=== PATIENT | female | born 1945 | race Caucasian/White ===

== ENCOUNTER → 2016-07-24 | Outpatient (REF) | payer MEDICARE, MEDICAID ==
[~2016-07-24] MED LIST: /ALEN70TA OR; /RISE35TA; /WARF5TA; AMBI10TA; AMBI10TA OR; AMBI5TAB PO; ANTI12.5; ASPI81TA83; ASPI81TA83 OR; ASPI81TA85 PO; ASTEPRO; ATIV0.5T; ATIV0.5T OR; ATIV1TAB10 PO; ATOR40TA PO; CARV6.25 PO; COLA100C2; COLA100C2 OR; CORE6.25; CORE6.25 OR; CORE6.25 PO; COUMADIN; DEPA500T2 OR; DIGO0.12 PO; DOCU10CA PO; FERR325T; HUMIRA; HYDR-3719 PO; KEPP1TAB2 PO; LISI10TA4; MAGN400T5 PO; MAGN500T2 OR; MAGO400T PO; MIDO10TA PO; NITR0.4S; NITR0.4S SL; NITR4TASL SL; OYST500T OR; OYST500T76; PACE200T PO; PERC5TAB6 PO; PERC5TAB8 OR; PLAV75TA38 PO; PRIL20CA; PRIL40CA PO; SOMA350T; SOMA350T OR; SOMA350T PO; SULF500T2 PO; VALS40TA PO; VALT1TAB PO; VALT500T; VALT500T PO; VICO10TA11 PO; VICODIN PO; VICODINES TAB; VITA50003 PO; VITAMIN D50000 UNT OR; ZOCO40TA; ZOCO40TA OR; ZOCO40TA PO; ZOLO100T; ZOLO100T OR; ZOLO100T PO; [UNRECOGNIZED DRUG - CODE]; astelin nasal spray
== END ==
LOC: M LAB REF 16:55
PROVIDERS: ATTEND Family Medicine
DX: I25.10 Atherosclerotic heart disease of native coronary artery without angina pectoris (principal)

== ENCOUNTER → 2016-10-28 | Outpatient (REF) | payer MEDICARE, MEDICAID | LOC: M LAB REF 16:36 | PROVIDERS: ATTEND Family Medicine | DX: M05.79 Rheumatoid arthritis with rheumatoid factor of multiple sites without organ or systems involvement (principal) ==

== ENCOUNTER 2016-11-19 17:05 | Emergency (ER) | payer MEDICARE, MEDICAID ==
[~2016-11-19] VITALS: Ht 172.7 cm; Wt 44.0 kg
[2016-11-19] MEDS ORDERED: CLOP75TA2 (17:24)
[2016-11-19 17:58] LABS: BASO # 0.1 K/mm3 (0.0-0.2); BASO % 1.5 % (0.0-1.0); EOS # 0.2 K/mm3 (0.0-0.50); EOS % 3.7 % (0.0-3.0); LARGE UNSTAINED CELL # 0.2 K/mm3 (0.0-0.4); LARGE UNSTAINED CELL % 4.1 % (0.0-4.0); LYMPH # 1.5 K/mm3 (1.5-4.5); MEAN CORPUSCULAR HEMOGLOBIN 30.9 pg (27.0-33.0); MEAN CORPUSCULAR HGB CONC 31.7 g/dl (32.0-36.5); MEAN CORPUSCULAR VOLUME 97.5 fl (80.0-96.0); MONO # 0.5 K/mm3 (0.0-0.8); MONO % 12.5 % (0.0-5.0); NEUTROPHILS # 1.8 K/mm3 (1.8-7.7); NEUTROPHILS % 43.1 % (36.0-66.0); PLATELET COUNT, AUTOMATED 234 k/mm3 (150-450); RED CELL DISTRIBUTION WIDTH 15.8 % (11.5-14.5); WHITE BLOOD COUNT 4.2 K/mm3 (4.0-10.0)
[2016-11-19] MEDS ORDERED: ONDANSETRON 4MG/2ML VIAL (J2405) IV ONE (18:00)
[2016-11-19] MEDS ORDERED: MORPHINE 2 MG/ML 1ML SYRINGE IV ONE ×3 (18:00→23:45)
[2016-11-19] MEDS ORDERED: SODIUM CHLORIDE 0.9% 1000 ML IV ONE (18:00)
[2016-11-19 18:23] LABS: ANION GAP 5 MEQ/L (8-16); BLOOD UREA NITROGEN 9 MG/DL (7-18); CALCIUM LEVEL 7.8 MG/DL (8.8-10.2); CARBON DIOXIDE LEVEL 28 MEQ/L (21-32); CHLORIDE LEVEL 106 MEQ/L (98-107); CREATININE FOR GFR 0.57 MG/DL (0.55-1.02); FREE T4 1.31 NG/DL (0.76-1.46); GLOMERULAR FILTRATION RATE > 60.0 (>45); GLUCOSE, FASTING 87 MG/DL (80-110); MAGNESIUM LEVEL 1.9 MG/DL (1.8-2.4); SODIUM LEVEL 139 MEQ/L (136-145)
--- NOTE | 2016-11-19 20:50 | ECGEPIP ---
Stationary ECG Study [facility] - ED Test Date: 2016-11-19 Pat Name: CHEIKH RUGGIERO Department: Room: - Gender: F Radiation Control Worker: ct : 1945 Requested By: Airam Krishnamurthy Order Number: [id number] Reading MD: John Brown Measurements Intervals [place] Rate: 62 P: 52 MO: 178 QRS: -61 QRSD: 117 T: 79 QT: 431 QTc: 439 Interpretive Statements SINUS RHYTHM LEFT ANTERIOR FASCICULAR BLOCK SEPTAL MYOCARDIAL INFARCTION, OF INDETERMINATE AGE SIMILAR TO 12/02/15 Electronically Signed On 11-19-2016 20:49:49 EDT by John Brown
[2016-11-20 02:07] VITALS: BP 144/70
[2016-12-07] MEDS ORDERED: COLA100C3 PO (15:27)
[2016-12-07] MEDS ORDERED: ATOR40TA PO (15:27)
== END 2016-11-20 03:07 | disposition home or self-care (01) ==
LOC: EDBD 17:05 → M ED 19:43
DX: I95.0 Idiopathic hypotension (principal); I51.9 Heart disease, unspecified; I25.2 Old myocardial infarction; Z86.73 Personal history of transient ischemic attack (TIA), and cerebral infarction without residual deficits; G89.29 Other chronic pain; M19.90 Unspecified osteoarthritis, unspecified site; Z79.899 Other long term (current) drug therapy; Z79.82 Long term (current) use of aspirin; Z79.02 Long term (current) use of antithrombotics/antiplatelets; Z88.8 Allergy status to other drugs, medicaments and biological substances
CPT/HCPCS: 80048; 82550; 82553; 83735; 84439; 84443; 84484; 85025; 93005; 93041; 94760; 96374; 96375; 96376; 99285; J2405

== ENCOUNTER 2016-12-07 12:39 | Inpatient (IN) | payer MEDICARE, MEDICAID ==
[~2016-12-07] VITALS: Ht 170.2 cm; Wt 46.2 kg
[~2016-12-07 12:39] MED LIST changes: -ATOR40TA PO; +ATOR40TA75 PO; +CLOP75TA2; +PERC5TAB12 PO; -PERC5TAB6 PO; +PLAV1TAB2 PO; -PLAV75TA38 PO; +VITA1CAP40 PO; -VITA50003 PO
[2016-12-07 13:25] LABS: BASO # 0.1 K/mm3 (0.0-0.2); BASO % 2.1 % (0.0-1.0); EOS # 0.1 K/mm3 (0.0-0.50); LARGE UNSTAINED CELL # 0.1 K/mm3 (0.0-0.4); LARGE UNSTAINED CELL % 2.9 % (0.0-4.0); LYMPH # 1.1 K/mm3 (1.5-4.5); LYMPH % 31.2 % (24.0-44.0); MEAN CORPUSCULAR HEMOGLOBIN 30.3 pg (27.0-33.0); MEAN CORPUSCULAR HGB CONC 32.5 g/dl (32.0-36.5); MEAN CORPUSCULAR VOLUME 93.4 fl (80.0-96.0); MONO # 0.3 K/mm3 (0.0-0.8); MONO % 9.2 % (0.0-5.0); NEUTROPHILS # 1.7 K/mm3 (1.8-7.7); NEUTROPHILS % 50.6 % (36.0-66.0); PLATELET COUNT, AUTOMATED 295 k/mm3 (150-450); RED CELL DISTRIBUTION WIDTH 14.3 % (11.5-14.5); WHITE BLOOD COUNT 3.3 K/mm3 (4.0-10.0)
[2016-12-07 13:29] LABS: INR 1.03
[2016-12-07 13:54] LABS: ANION GAP 7 MEQ/L (8-16); BLOOD UREA NITROGEN 7 MG/DL (7-18); CALCIUM LEVEL 8.7 MG/DL (8.8-10.2); CARBON DIOXIDE LEVEL 26 MEQ/L (21-32); CHLORIDE LEVEL 101 MEQ/L (98-107); CREATININE FOR GFR 0.55 MG/DL (0.55-1.02); GLOMERULAR FILTRATION RATE > 60.0 (>45); GLUCOSE, FASTING 105 MG/DL (80-110); MAGNESIUM LEVEL 1.9 MG/DL (1.8-2.4); PHOSPHORUS LEVEL 2.3 MG/DL (2.5-4.9); POTASSIUM SERUM 3.5 MEQ/L (3.5-5.1); SODIUM LEVEL 134 MEQ/L (136-145)
[2016-12-07] MEDS ORDERED: NEUTRA-PHOS 1.25 GM PACKET PO ONE (14:15)
[2016-12-07] MEDS ORDERED: PERCOCET 5MG/325MG TAB PO ONE (14:30)
[2016-12-07] MEDS ORDERED: LORazepam 2 MG/ML VIAL (J2060) As Ordered ONE (14:36)
[2016-12-07] MEDS ORDERED: LORazepam 2 MG/ML VIAL (J2060) IV STA (14:43)
--- NOTE | 2016-12-07 15:00 | REP ---
CT study brain without contrast: History: CVA. Comparison CT study January 18, 2015. CT findings: Digital preliminary lead systems analyst radiograph is unremarkable. The patient is edentulous. Bone window settings demonstrate an intact bony calvarium. No skull fracture is seen. Visualized paranasal sinuses are clear. There is vascular calcification in the distal carotid arteries bilaterally. No intraorbital abnormality is seen. There is moderate diffuse cerebral atrophy. There is old encephalomalacia in the distribution of the left middle cerebral artery consistent with an old infarct. This is unchanged from the January 18, 2015 prior study. No acute infarction is seen. There is no evidence of intracranial hemorrhage. No mass or extra-axial fluid collection is seen. No midline shift is seen. Small vessel atherosclerotic changes are again noted. Findings are unchanged. Impression: Diffuse atrophy, vascular calcification. Old left-sided infarcts, and small vessel changes. No acute intracranial abnormality. Signed by Alejandro Ward MD 12/07/2016 04:14 P
[2016-12-07] MEDS ORDERED: levETIRAcetam INJection 500 MG in D5W MINI-BAG PLUS 100 ML IV ONE (15:15)
[2016-12-07] MEDS ORDERED: ASPIRIN 325 MG TAB PO ONE (15:15)
[2016-12-07] MEDS ORDERED: ATOR40TA75 PO (15:27)
[2016-12-07] MEDS ORDERED: COLA100C5 PO (15:27)
[2016-12-07] MEDS ORDERED: CLOP75TA2 PO (15:27)
[2016-12-07 15:32] LABS: DIGOXIN LEVEL 0.5 NG/ML (0.5-2.0)
[2016-12-07] MEDS ORDERED: SULF50TA PO (15:45)
[2016-12-07] MEDS ORDERED: ACETAMINOPHEN TAB 650MG DOSE (2X325MG) PO PRN (17:30)
[2016-12-07 18:00] VITALS: BP 148/91
[2016-12-07] MEDS ORDERED: NITROGLYCERIN 0.4 MG SUBL TABLET SL PRN (18:30)
--- NOTE | 2016-12-07 18:43 | HPEPDOC ---
General Date of Admission Dec 07, 2016 at 15:49 Primary Care Physician: MIKE MERINO M.D. Other Providers Glove Turner And Former: Dr. Lopez Orthopedics: Dr. Sulaiman rAtis [employer] And Deck Remover: Previously Dr. Lawrence Nieto, currently unknown ENT: Dr. Austin Agee [facility] as of September 27: Nicole Attending Physician: TERRANCE BRADFORD MD Chief Complaint The patient is a 70-year-old female admitted with a reason for visit of Seizure, Transient Ischemic Attack. History of Present Illness PRIMARY CARE PROVIDER: Dr. Mike Merino CHIEF COMPLAINT: possible seizure and "10/10 body pain all over"(as per granddaughter) HISTORY OF PRESENT ILLNESS: History given by both patient's sister and patient's granddaughter. Ms. 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 Granddaughter is certified coding specialist of patient and was taking care of the patient this AM. At ~noontime, patient who is bedbound, mobility impaired, and wheelchair bound, was reportedly arching her neck and back while in her bed resting, unable to answer her granddaughters questions, unable to speak in full sentences and talk normally, and was reported to be confused. Granddaughter stated this is not her baseline. Granddaughter stated that she has never seen her grandmother behaving like this before. Has never seen her grandmother arching her back before or witnessed any seizures prior to today. Patient does not have a hx of seizures either. Today may have been the first time. Granddaughter states that there was no incontinence of bowel/ bladder that occurred at that time and reports no unusual weakness from her grandmother's baseline. She reports that the patient did not have any uncontrollable upper or lower extremity movements either. Nevertheless, she was still rushed to the [facility] ED. By the time the ambulance came, granddaughter thinks that patient's symptoms mainly resolved. A CT scan of head was negative for acute intracranial pathology or hemorrhagic findings. It had shown diffuse atrophy, vascular calcification, old L-sided infarcts, small vessel changes. Multiple EKGs done today were not remarkable different when compared to prior. Troponin I x1 was negative. CBC was only remarkable for WBC of 3.3. INR was 1.03. Chemistry was remarkable for Na of 134, digoxin level of 0.5, Mg of 1.0, and phosphorus of 2.3. CXR showed no active disease, sternotomy, and a pacemaker in place. Later in the afternoon between 3-4 PM, patient was reported to have witnessed seizure-like activity in the ED with uncontrollable shaking, eye rolling movement, tongue drooping. Nurse reports there was some stool incontinence: very bright yellow waterry stool, but unsure if she had any urinary incontinence. Patient usually wears a diaper due to her mobility impairment. Nurse also reported some "tiny R-sided weakness." Patient was then administered levetiracetam. When this resolved, patient was reported to by very "red and hot" according to nurse. Patient then became very restless for ~30 minutes. Was given IV 2 mg ativan. Finally, she had then settled down. She was also placed on oxygen. Initially, was satting 93% on room air. Currently, was satting 97% with oxygen. Patient's sister reports that patient has generalized weakness in her extremities. Now, it seems patient is back to baseline. Sister reports that patient does not c/o fevers, chest pain, SOB, nausea, vomiting, abdominal pain, diarrhea, constipation. Patient always feels cold. Patient also does admit to a sore throat. PAST MEDICAL HISTORY: Paroxysmal Supraventricular Tachycardia Possible Atrial Fibrillation? 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 ALLERGIES: Tizanidine: anaphylaxis rxn Zanaflex: breathing difficulty, tongue swells Prednisone: heart races Lisinopril: dizziness, vertigo, cough SOCIAL HISTORY: Lives at home alone. Has 2 caregivers at home (one is niece and one is daughter in law). In addition, a public health nurse comes. Is mobility impaired, bedbound, and wheelchair bound. Does not smoke or use EtOH. No illicit drug use. Healthcare Proxy: Son Berny Beltre, Sister Mei Saeed, Aunt Nguyen Garcia, Granddaughter Nora Penaloza, Friend Rachael Kapoor FAMILY HISTORY: Noncontributory. CODE STATUS: Has a Healthcare Proxy From that states: "wants CPR". However, unable to ask patient whether she wants to be intubated as well. Therefore, code status to be determined. REVIEW OF SYSTEMS: All ROS is negative except for that which is stated above. PHYSICAL EXAMINATION: Initial ED Vitals at 12:43 T: 99.4 BP: 163/100 RR: 18 P: 73 O2 Saturation: 97% on 2 L NC At 14:08: BP 148/95 At 14:09: Pulse Ox: 95% on 2 L NC General: Quiet, thin and cachectic elderly female with thin hair. Lying comfortably in position in bed in NAD. Doses on and off. Awake at times. Mumbles answers to some questions, but not fully comprehensible. Very low tone in speech. HEENT: Head: normocephalic, atraumatic. Eyes: PERRL, sclera are nonicteric. Nose: No external lesions Throat: no pharyngeal erythema or exudates, moist buccal mucosa. However, there is some oral thrush appreciated. Neck: Supple Respiratory: clear to auscultation bilaterally with no wheezes, rales, or rhonchi. Chest: Symmetric chest rise bilaterally. Cardiovascular: regular rate and rhythm, with no murmurs, rubs or gallops. Abdomen: soft, nondistended, no hepatosplenomegaly appreciated. Bowel sounds present. Generalized tenderness to palpation (reported by patient but not clear as it is difficult to comprehend her) Extremities: Hand size cutter strong in L hand > R hand. Fingers are a bit deformed and contracted as part of RA changes it seems. Unable to fully test muscle strength in upper or lower extremities bilaterally due to patient being unable to follow commands. Did not feel patient was able to understand me much. MSK: No swelling in either lower extremity bilaterally. L leg severely thin and deconditioned as compared to R leg. Both legs contracted and flexed, difficult to extend. Neurological: Unable to follow my commands. Unable to test CN 2-12 bilaterally. Was able to stick out tongue and move it slightly to a side. + Upgoing Babinski signs in both feet bilaterally. Integumentary: skin free from rashes, lesions, abrasions. Vascular: pulses palpable and symmetrical in upper and lower extremities bilaterally. LABORATORY DATA: CBC remarkable for WBC 3.3. [place] %: 9.2, Eos %: 4, Baso%: 2.1, Neut #: 1.7, and Lymph #: 1.1. INR was 1.03. Chemistry remarkable for Na 134. Ca: 8.7 Phosphorus: 2.3 Digoxin Level: 0.5 M.9 Total CK: 37 CK-MB: 1 Troponin I: <0.02 MICROBIOLOGY: None ELECTROCARDIOGRAM: 3 EKGs were done in the ED which showed no acute changes compared to previous EKG. EKGs mainly showed sinus rhythm, left atrial enlargement, marked left axis deviation, left ventricular hypertrophy, and ST-T change. Possible septal VT ( which was also seen on 11/19/16 EKG). RADIOLOGY: Head CT without Contrast: diffuse atrophy, vascular calcification, old L-sided infarcts, small vessel changes, no acute intracranial abnormality. CXR: no active disease. Pacemaker in place. Sternotomy. ASSESSMENT/PLAN: Ms. 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 PLAN: Possible TIA: admit to inpatient telemetry unit in PCU for close monitoring. Place on director cardiac. Perform neuro checks q4h. Have ordered echocardiogram , ultrasound of the carotids. Get PT/OT on board to help with mobility and strengthening. Continue aspirin 325 mg daily. Continue home clopidogrel. Placed on low cholesterol diet. Possible Seizure-Like Activity: According to hx, patient may have new-onset seizures. Will obtain EEG. May consider consulting Neurology. Will place on keppra 500 mg BID. Perform neuro checks q4h. Oral Thrush: Pt c/o sore throat. Have ordered nystatin swish and swallow QID. Monitor for improvement. Rheumatoid Arthritis: continue sulfasalazine, soma, acetaminophen PRN pain, norco PRN breakthrough pain HTN: continue carvedilol. CAD and multiple VT hx with ICD: continue clopidogrel, aspirin, atorvastatin, carvedilol, digoxin, and nitroglycerin TID PRN chest pain. Hx of CVA: continue atorvastatin, aspirin, clopidogrel. Arrhythmia of Unknown Type: Possible atrial fibrillation vs. PSVT. Continue home regimen of amiodarone, digoxin. Anxiety: assumed from home medications. Continue ativan PRN, ambien QHS, sertraline. Stress-Induced Shingles: continue valacyclovir. Mobility Impairment and Physical Deconditioning: will obtain PT/OT/Speech Therapy Evaluations. Will obtain Home Safety Evaluation. Continue home medications. DVT ppx: lovenox 30 mg sc daily Immunizations as per protocol CODE STATUS: to be determined. Wants CPR, but unsure of intubation. My preceptor for this patient encounter was Dr. Terrance Bradford, and was physically present in the building during the encounter and was fully available. As needed, all aspects of the patient interview, examination, medical decision making process, and medical care plan development were reviewed and approved by the preceptor. Preceptor is aware and concurs with the plan as stated in the body of this note and will attest to such by his/her cosignature. Home Medications Scheduled Amiodarone Hcl (Pacerone) 200 Mg Tab, 200 MG PO DAILY, (Reported) Aspirin (Aspir-81) 81 Mg Tab, 81 MG PO DAILY, (Reported) Atorvastatin Calcium (Atorvastatin Calcium) 40 Mg Tab, 40 MG PO QHS, (Reported) Carisoprodol (Soma) 350 Mg Tab, 350 MG PO BID, (Reported) Carvedilol (Carvedilol) 6.25 Mg Tab, 6.25 MG PO BID, (Reported) Clopidogrel Bisulfate (Clopidogrel) 75 Mg Tab, 75 MG PO DAILY, (Reported) Digoxin (Digoxin) 0.125 Mg Tab, 0.125 MG PO DAILY, (Reported) Sertraline Hcl (Zoloft) 100 Mg Tab, 100 MG PO BID, (Reported) Sulfasalazine (Sulfasalazine Delayed Release) 500 Mg Tabec, 1,500 MG PO BID, ( Reported) Valacyclovir Hydrochloride (Valtrex) 1 Gm Tab, 1 GM PO DAILY, (Reported) Zolpidem Tartrate (Ambien) 5 Mg Tab, 5 MG PO QHS, (Reported) Scheduled PRN Acetaminophen/Hydrocodone (Hydrocodone/Acetaminophen 10-325 mg) 1 Tab Tab, 1 TAB PO Q6H PRN for PAIN, (Reported) Docusate Sodium (Colace) 100 Mg Cap, 100 MG PO BID PRN for CONSTIPATION, ( Reported) Lorazepam (Ativan) 0.5 Mg Tab, 0.5 MG PO BID PRN for ANXIETY, (Reported) Nitroglycerin (Nitrostat) 0.4 Mg Subl, 0.4 MG SL NITRO PRN for CHEST PAIN, ( Reported) Allergies Coded Allergies: Tizanidine (Unverified Allergy, Severe, THROAT AND TONGUE SWELLING, 09/22/12 ) Lisinopril (Verified Allergy, Unknown, 09/22/12) Prednisone (Verified Adverse Reaction, Intermediate, HEART RACES, 09/22/12) Vital Signs Vital Signs Date Time Temp Pulse Resp B/P (MAP) Pulse Ox O2 Delivery O2 Flow Rate FiO2 12/07/16 18:00 100.5 101 20 148/91 (110) 95 Nasal Cannula 2.0 Laboratory Data Labs 24H Laboratory Tests 2 12/07/16 12:51: White Blood Count 3.3L, Red Blood Count 4.91, Hemoglobin 14.9, Hematocrit 45.9, Mean Corpuscular Volume 93.4, Mean Corpuscular Hemoglobin 30.3, Mean Corpuscular Hemoglobin Concent 32.5, Red Cell Distribution Width 14.3, Platelet Count 295, Neutrophils (%) (Auto) 50.6, Lymphocytes (%) (Auto) 31.2, Monocytes ( %) (Auto) 9.2H, Eosinophils (%) (Auto) 4.0H, Basophils (%) (Auto) 2.1H, Neutrophils # (Auto) 1.7L, Lymphocytes # (Auto) 1.1L, Monocytes # (Auto) 0.3, Eosinophils # (Auto) 0.1, Basophils # (Auto) 0.1, Large Unclassified Cells % 2.9 , Large Unclassified Cells # 0.1, Prothrombin Time 13.6, Prothromb Time International Ratio 1.03, Activated Partial Thromboplast Time 29.7, Anion Gap 7L , Glomerular Filtration Rate > 60.0, Blood Urea Nitrogen 7, Creatinine 0.55, Sodium Level 134L, Potassium Level 3.5, Chloride Level 101, Carbon Dioxide Level 26, Calcium Level 8.7L, Phosphorus Level 2.3L, Total Creatine Kinase 37, Magnesium Level 1.9, Creatine Kinase MB 1.0, Creatine Kinase MB Relative Index 2.70, Troponin I < 0.02, Digoxin Level 0.5 CBC/BMP Laboratory Tests 12/07/16 12:51 Red Blood Count 4.91, Mean Corpuscular Volume 93.4, Mean Corpuscular Hemoglobin 30.3, Mean Corpuscular Hemoglobin Concent 32.5, Red Cell Distribution Width 14.3 , Neutrophils (%) (Auto) 50.6, Lymphocytes (%) (Auto) 31.2, Monocytes (%) (Auto ) 9.2 H, Eosinophils (%) (Auto) 4.0 H, Basophils (%) (Auto) 2.1 H, Neutrophils # (Auto) 1.7 L, Lymphocytes # (Auto) 1.1 L, Monocytes # (Auto) 0.3, Eosinophils # (Auto) 0.1, Basophils # (Auto) 0.1, Calcium Level 8.7 L, Phosphorus Level 2.3 L, Total Creatine Kinase 37 Plan / VTE VTE Prophylaxis Ordered?: Yes (lovenox) TERRANCE MELENDEZME-1 Dec 07, 2016 18:43
[2016-12-07] MEDS: DIGOXIN 0.125 MG TAB PO SCH (19:46)
[2016-12-07] MEDS: CLOPIDOGREL 75 MG TAB PO SCH (19:46)
[2016-12-07] MEDS: NORCO, ANEXSIA 5/325MG TABLET (HYDROcodone/ACETAMINOPHEN) PO PRN (19:47)
[2016-12-07] MEDS: AMIODARONE 200 MG TAB (PACERONE) PO SCH (19:47)
[2016-12-07 20:00] VITALS: BP 156/84
[2016-12-07] MEDS: NYSTATIN 500,000 U/5 ML SUSP UDC PO SCH (21:33)
[2016-12-07] MEDS: CARVedilol 6.25 MG TAB PO SCH (21:33)
[2016-12-07] MEDS: SERTRALINE 100 MG TAB PO SCH (21:33)
[2016-12-07] MEDS: zolPIDEM TARTRATE 5 MG TAB PO SCH (21:33)
[2016-12-07] MEDS: CARISOPRODOL 350 MG TAB PO SCH (21:33)
[2016-12-07] MEDS: sulfaSALAzine 500 MG TABEC PO SCH (21:33)
[2016-12-07] MEDS: ATORVASTATIN 20 MG TAB PO SCH (21:33)
[2016-12-07] MEDS: levETIRAcetam INJection 500 MG in D5W MINI-BAG PLUS 100 ML IV SCH (21:34)
[2016-12-08] VITALS (7 sets, daily range): BP systolic 97–113; BP diastolic 56–73
[2016-12-08 05:11] LABS: BASO # 0.1 K/mm3 (0.0-0.2); BASO % 1.3 % (0.0-1.0); EOS # 0.1 K/mm3 (0.0-0.50); EOS % 1.3 % (0.0-3.0); LARGE UNSTAINED CELL # 0.2 K/mm3 (0.0-0.4); LARGE UNSTAINED CELL % 3.1 % (0.0-4.0); LYMPH # 1.4 K/mm3 (1.5-4.5); LYMPH % 27.6 % (24.0-44.0); MEAN CORPUSCULAR HEMOGLOBIN 30.5 pg (27.0-33.0); MEAN CORPUSCULAR VOLUME 95.5 fl (80.0-96.0); MONO # 0.6 K/mm3 (0.0-0.8); MONO % 11.6 % (0.0-5.0); NEUTROPHILS # 2.9 K/mm3 (1.8-7.7); NEUTROPHILS % 55.1 % (36.0-66.0); PLATELET COUNT, AUTOMATED 309 k/mm3 (150-450); RED CELL DISTRIBUTION WIDTH 14.1 % (11.5-14.5); WHITE BLOOD COUNT 5.2 K/mm3 (4.0-10.0)
[2016-12-08 05:36] LABS: ANION GAP 7 MEQ/L (8-16); BLOOD UREA NITROGEN 9 MG/DL (7-18); CALCIUM LEVEL 8.6 MG/DL (8.8-10.2); CARBON DIOXIDE LEVEL 26 MEQ/L (21-32); CHLORIDE LEVEL 105 MEQ/L (98-107); CREATININE FOR GFR 0.46 MG/DL (0.55-1.02); GLOMERULAR FILTRATION RATE > 60.0 (>45); GLUCOSE, FASTING 91 MG/DL (80-110); MAGNESIUM LEVEL 1.9 MG/DL (1.8-2.4); SODIUM LEVEL 138 MEQ/L (136-145)
[2016-12-08] MEDS ORDERED: POTASSIUM CHLORIDE 10% LIQ 20 MEQ/15 ML UDC PO ONE (06:00)
[2016-12-08] MEDS: NORCO, ANEXSIA 5/325MG TABLET (HYDROcodone/ACETAMINOPHEN) PO PRN ×3 (06:42→21:36)
--- NOTE | 2016-12-08 07:57 | REP ---
Portable chest x-ray: Sitting AP view. History: CVA. Comparison chest x-ray December 01, 2015. Findings: EKG monitoring electrodes overlie the chest. Pacemaker is seen in the right heart via the left subclavian region. Prior median sternotomy wires are noted. The heart is not enlarged. The aorta is tortuous as before. There is diffuse osteopenia. The lungs are well inflated and clear. Pleural angles are sharp. Pulmonary vasculature is not increased. Impression: No active disease. Pacemaker in place. Prior sternotomy. Signed by Alejandro Ward MD 12/08/2016 08:59 A
[2016-12-08] MEDS ORDERED: ASPIRIN 325 MG TAB PO SCH (09:00)
--- NOTE | 2016-12-08 09:34 | REP ---
Duplex carotid sonography: History: Transient ischemic attack. Comparison study: October 13, 2013. Findings: Antegrade flow was observed in the left vertebral artery. Flow could not be observed in the right vertebral artery. I note that the right vertebral artery flow was reversed at the time of the comparison study in 2013 suggesting subclavian steal. Right carotid: Right common carotid artery could not be evaluated today due to patient factors. Apparently the patient was unable and/or unwilling to lie other than on the right side precluding access to the right carotid artery during this exam. The left carotid artery evaluation was also technically limited. There is some mild plaquing visible in the left carotid bulb. Color flow and spectral Doppler interrogation appear to be unremarkable on the left. Velocity chart left carotid: Left CCA PSV 42 cm/s Left ICA PSV 45 EDV 18 Left ECA PSV 22 Left ICA/CCA ratio normal 1.1. Impression: Incomplete/limited exam. Right carotid and right vertebral could not be evaluated. We were not able to obtain right-sided imaging. Mild plaquing on the left. No evidence of high-grade stenosis on the left. 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 Signed by Alejandro Ward MD 12/08/2016 11:31 A
[2016-12-08] MEDS: ENOXAPARIN 30 MG/0.3 ML SYR (J1650) SC SCH (09:55)
[2016-12-08] MEDS: sulfaSALAzine 500 MG TABEC PO SCH ×2 (09:55→21:15)
[2016-12-08] MEDS: CLOPIDOGREL 75 MG TAB PO SCH (09:56)
[2016-12-08] MEDS: DIGOXIN 0.125 MG TAB PO SCH (09:56)
[2016-12-08] MEDS: CARVedilol 6.25 MG TAB PO SCH ×2 (09:56→21:16)
[2016-12-08] MEDS: ASPIRIN 81 MG ENTERIC TAB PO SCH (09:56)
[2016-12-08] MEDS: SERTRALINE 100 MG TAB PO SCH ×2 (09:57→21:16)
[2016-12-08] MEDS: valACYclovir HCL 500 MG TAB PO SCH (09:57)
[2016-12-08] MEDS: NYSTATIN 500,000 U/5 ML SUSP UDC PO SCH ×4 (09:57→21:15)
[2016-12-08] MEDS: AMIODARONE 200 MG TAB (PACERONE) PO SCH (09:57)
[2016-12-08] MEDS: levETIRAcetam INJection 500 MG in D5W MINI-BAG PLUS 100 ML IV SCH ×2 (09:58→21:17)
[2016-12-08] MEDS: CARISOPRODOL 350 MG TAB PO SCH ×2 (09:59→21:24)
[2016-12-08] MEDS: LORazepam 0.5 MG TAB PO PRN (11:50)
--- NOTE | 2016-12-08 13:48 | IPNPDOC ---
Subjective Date Seen The patient was seen on 12/08/16. Subjective Chief Complaint/HPI The patient is a 70-year-old female admitted with a reason for visit of Seizure, Transient Ischemic Attack. General: Reports: Normal Appetite (no appetite), Denies: ROS Unobtainable, Chills, Night Sweats, Fatigue, Malaise, Other Symptoms Constitutional: Denies: Chills, Fever, Malaise, Night Sweats, Weakness, Fatigue , Weight Loss, Lethargy, Other Eyes: Denies: Pain, Vision change, Conjunctivae inflammation, Eyelid inflammation, Redness, Other ENT: Denies: Head Aches, Ear Pain, Dysphagia, Sinus Congestion, Post Nasal Drip , Sore Throat, Epistaxis, Other Symptoms Skin: Denies: Rash, Lesions, Jaundice, Bruising, Itching, Dry, Breakdown, Nail Changes, Other Pulmonary: Denies: Dyspnea, Cough, Pleuritic Chest Pain, Other Symptoms Cardiovascular: Denies: Chest Pain, Palpitations, Orthopnea, Paroxysmal Noc. Dyspnea, Edema, Lt Headedness, Other Symptoms Gastrointestinal: Denies: Nausea, Vomiting, Abdominal Pain, Diarrhea, Constipation, Melena, Hematochezia, Other Symptoms Genitourinary: Denies: Dysuria, Frequency, Incontinence, Hematuria, Retention, Other Symptoms Musculoskeletal: Reports: Joint Pain (chronic arthritic pain) Objective Physical Examination General Exam: Positive: Alert, Cooperative, No Acute Distress, Other (elderly, frail, appears older than stated age) Eye Exam: Positive: PERRLA, EOMI, Negative: Sclera icteric ENT Exam: Positive: Other ENT (edentulous) Chest Exam: Positive: Clear to auscultation, Normal air movement Heart Exam: Positive: Rate Normal Telemetry: Positive: No significant arrhythmia Abdomen Exam: Positive: Normal bowel sounds, Soft, Negative: Tenderness Psych Exam: Positive: Oriented x 3 Assessment /Plan Problems (1) TIA (transient ischemic attack) Onset Date: 01/09/2014 Status: Acute Problem Specific Plan: Consult Specialist, Monitor Clinically Problem Text: Deficits - generalized weakness - resolved upon arrival to ED neuro consultation pending no MRI 2/2 AICD (2) Seizure Status: Acute Discussed With: Patient Problem Specific Plan: Consult Specialist, Monitor Clinically Problem Text: Continue keppra IV neuro c/s pending (3) Rheumatoid arthritis Status: Chronic Problem Specific Plan: Monitor Clinically (4) HTN (hypertension) Status: Chronic (5) CAD (coronary artery disease) Status: Chronic Problem Text: Hx of multiple [place]'s, s/p CABG, ischemic cardiomyopathy. continue corge, lipitor, asa, plavix (6) History of CVA (cerebrovascular accident) Status: Chronic Problem Text: residual dysarthria complicated with history of TBI (7) Arrhythmia Status: Chronic Discussed With: Patient Problem Specific Plan: Monitor Clinically Problem Text: details are not clear - s/p AICD, receiving amiodarone, digoxin, coreg as per home regimen Plan/VTE VTE Prophylaxis Ordered?: Yes (lovenox) Plan Diet: Continue Current Therapy: PT, OT, Speech, Home Safety Eval Pt and Family Services: Home Care (lives home alone) Diagnostics: Repeat Labs in AM, Other Diagnostics (eeg) VS, I&O, 24H, Fishbone Vital Signs/I&O Vital Signs Date Time Temp Pulse Resp B/P (MAP) Pulse Ox O2 Delivery O2 Flow Rate FiO2 12/08/16 06:42 18 12/08/16 04:00 97.7 75 113/56 (75) 95 Room Air 12/08/16 00:00 3.0 I&O- Last 24 Hours up to 6 AM 12/08/16 06:00 Intake Total 200 ml Output Total 0 ml Balance 200 ml Laboratory Data 24H LABS Laboratory Tests 2 12/07/16 12:51: White Blood Count 3.3L, Red Blood Count 4.91, Hemoglobin 14.9, Hematocrit 45.9, Mean Corpuscular Volume 93.4, Mean Corpuscular Hemoglobin 30.3, Mean Corpuscular Hemoglobin Concent 32.5, Red Cell Distribution Width 14.3, Platelet Count 295, Neutrophils (%) (Auto) 50.6, Lymphocytes (%) (Auto) 31.2, Monocytes ( %) (Auto) 9.2H, Eosinophils (%) (Auto) 4.0H, Basophils (%) (Auto) 2.1H, Neutrophils # (Auto) 1.7L, Lymphocytes # (Auto) 1.1L, Monocytes # (Auto) 0.3, Eosinophils # (Auto) 0.1, Basophils # (Auto) 0.1, Large Unclassified Cells % 2.9 , Large Unclassified Cells # 0.1, Prothrombin Time 13.6, Prothromb Time International Ratio 1.03, Activated Partial Thromboplast Time 29.7, Anion Gap 7L , Glomerular Filtration Rate > 60.0, Blood Urea Nitrogen 7, Creatinine 0.55, Sodium Level 134L, Potassium Level 3.5, Chloride Level 101, Carbon Dioxide Level 26, Calcium Level 8.7L, Phosphorus Level 2.3L, Total Creatine Kinase 37, Magnesium Level 1.9, Creatine Kinase MB 1.0, Creatine Kinase MB Relative Index 2.70, Troponin I < 0.02, Digoxin Level 0.5 12/08/16 04:37: White Blood Count 5.2, Red Blood Count 4.04, Hemoglobin 12.3#, Hematocrit 38.5, Mean Corpuscular Volume 95.5, Mean Corpuscular Hemoglobin 30.5, Mean Corpuscular Hemoglobin Concent 32.0, Red Cell Distribution Width 14.1, Platelet Count 309, Neutrophils (%) (Auto) 55.1, Lymphocytes (%) (Auto) 27.6, Monocytes ( %) (Auto) 11.6H, Eosinophils (%) (Auto) 1.3, Basophils (%) (Auto) 1.3H, Neutrophils # (Auto) 2.9, Lymphocytes # (Auto) 1.4L, Monocytes # (Auto) 0.6, Eosinophils # (Auto) 0.1, Basophils # (Auto) 0.1, Large Unclassified Cells % 3.1 , Large Unclassified Cells # 0.2, Anion Gap 7L, Glomerular Filtration Rate > 60.0, Blood Urea Nitrogen 9, Creatinine 0.46L, Sodium Level 138, Potassium Level 3.0L, Chloride Level 105, Carbon Dioxide Level 26, Calcium Level 8.6L, Magnesium Level 1.9 CBC/BMP Laboratory Tests 12/07/16 12:51 Red Blood Count 4.91, Mean Corpuscular Volume 93.4, Mean Corpuscular Hemoglobin 30.3, Mean Corpuscular Hemoglobin Concent 32.5, Red Cell Distribution Width 14.3 , Neutrophils (%) (Auto) 50.6, Lymphocytes (%) (Auto) 31.2, Monocytes (%) (Auto ) 9.2 H, Eosinophils (%) (Auto) 4.0 H, Basophils (%) (Auto) 2.1 H, Neutrophils # (Auto) 1.7 L, Lymphocytes # (Auto) 1.1 L, Monocytes # (Auto) 0.3, Eosinophils # (Auto) 0.1, Basophils # (Auto) 0.1, Calcium Level 8.7 L, Phosphorus Level 2.3 L, Total Creatine Kinase 37 12/08/16 04:37 Red Blood Count 4.04, Mean Corpuscular Volume 95.5, Mean Corpuscular Hemoglobin 30.5, Mean Corpuscular Hemoglobin Concent 32.0, Red Cell Distribution Width 14.1 , Neutrophils (%) (Auto) 55.1, Lymphocytes (%) (Auto) 27.6, Monocytes (%) (Auto ) 11.6 H, Eosinophils (%) (Auto) 1.3, Basophils (%) (Auto) 1.3 H, Neutrophils # (Auto) 2.9, Lymphocytes # (Auto) 1.4 L, Monocytes # (Auto) 0.6, Eosinophils # ( Auto) 0.1, Basophils # (Auto) 0.1, Calcium Level 8.6 L KANE NELSON MD Dec 08, 2016 08:33
[2016-12-08 19:02] LABS: ANION GAP 6 MEQ/L (8-16); BLOOD UREA NITROGEN 12 MG/DL (7-18); CALCIUM LEVEL 8.3 MG/DL (8.8-10.2); CARBON DIOXIDE LEVEL 26 MEQ/L (21-32); CHLORIDE LEVEL 105 MEQ/L (98-107); CREATININE FOR GFR 0.63 MG/DL (0.55-1.02); GLOMERULAR FILTRATION RATE > 60.0 (>45); GLUCOSE, FASTING 125 MG/DL (80-110); POTASSIUM SERUM 3.5 MEQ/L (3.5-5.1); SODIUM LEVEL 137 MEQ/L (136-145)
--- NOTE | 2016-12-08 20:20 | CR ---
DATE OF CONSULTATION: 12/08/2016 REFERRING PHYSICIAN: Dr. Terrance Bradford REASON FOR CONSULTATION: Seizures. HISTORY OF PRESENT ILLNESS: Carlene Alaniz is a 70-year-old woman with history of paroxysmal supraventricular tachycardia, cardiomyopathy, coronary artery disease, defibrillator placement, rheumatoid arthritis who was admitted at [facility] due to an episode of transient ischemic attack and a seizure. Her granddaughter who is her it service technician was with her this morning. At noon time she was in bed, unable to answer her granddaughter's questions and unable to speak in sentences. She was confused. Her granddaughter reported that she had never seen her grandmother in that state before and she was brought to [facility]. At that time she was improving. She had a generalized tonic-clonic seizure in the emergency department without urinary incontinence or tongue biting. She was confused and postictal afterwards. The patient states on my visit today that she had a similar episode a couple of weeks ago. She has history of chronic neck and back pain. She has rheumatoid and osteoarthritis which are severe. She has occasional headaches. She denies dysphagia, diplopia or urinary incontinence. She has impaired mobility and is wheelchair bound. PAST MEDICAL HISTORY: Severe rheumatoid arthritis, cardiomyopathy, coronary artery disease, multiple cardiac catheterizations, triple coronary artery bypass graft, stroke in October 2006, paroxysmal supraventricular tachycardia, coronary artery disease, syncope, osteoarthritis. SOCIAL HISTORY: She denies smoking, alcohol or illicit drugs. FAMILY HISTORY: Son has history of seizures. REVIEW OF SYSTEMS: All systems were reviewed and found to be noncontributory except as mentioned in history present illness. ALLERGIES: TIZANIDINE, LISINOPRIL, PREDNISONE. HOME MEDICATIONS: - amiodarone 200 mg by mouth daily - aspirin 81 mg by mouth daily - Lipitor 40 mg by mouth daily - Soma 350 mg by mouth twice a day as needed - Coreg 6.25 mg by mouth twice a day - Plavix 75 mg by mouth daily - digoxin 0.125 mg by mouth daily - Zoloft 100 mg by mouth twice a day - sulfasalazine 1500 mg by mouth twice a day - Valtrex 1 gram by mouth daily - Ambien 5 mg by mouth nightly - nitroglycerin as needed - lorazepam 0.5 mg by mouth twice a day as needed - hydrocodone 10/325 mg by mouth every 6 hours as needed PHYSICAL EXAMINATION: Temperature 96.0, pulse 74, respiratory rate 18, blood pressure 97/57, 94% saturation on room air. Heart regular rate and rhythm. Lungs clear to auscultation. Abdomen soft, nontender, nondistended. No pedal edema. She has deformed hands and feet due to severe rheumatoid arthritis. Ear, nose, and throat examination is within normal limits. She is awake, alert, oriented to place and person. Her speech has normal comprehension and repetition. Extraocular muscles are intact. No facial weakness. Tongue and uvula midline. 5/5 strength in all four extremities. Deep tendon reflexes 1+ throughout. Gait could not be tested as the patient is wheelchair bound. No dysmetria. ASSESSMENT: 1. Generalized tonic-clonic seizures. 2. Suspected seizure at home and the patient may have been postictal when her granddaughter found her confused with slurred speech. 3. History of cerebrovascular and coronary artery disease. 4. Defibrillator placement. PLAN: 1. EEG. 2. Keppra 500 mg by mouth twice a day. 3. Aspirin 81 mg by mouth daily. 4. Plavix 75 mg by mouth daily. She cannot have MRI scan of brain. Her CT scan of head did not show any acute disease. Carotid ultrasound showed less than 50% left carotid artery stenosis. The right artery could not be visualized as the patient could not lay in that position.
[2016-12-08] MEDS: zolPIDEM TARTRATE 5 MG TAB PO SCH (21:16)
[2016-12-08] MEDS: ATORVASTATIN 20 MG TAB PO SCH (21:17)
[2016-12-09 04:45] VITALS: BP 109/60
[2016-12-09 05:43] LABS: BASO # 0.1 K/mm3 (0.0-0.2); BASO % 1.8 % (0.0-1.0); EOS # 0.2 K/mm3 (0.0-0.50); EOS % 5.9 % (0.0-3.0); LARGE UNSTAINED CELL # 0.2 K/mm3 (0.0-0.4); LARGE UNSTAINED CELL % 3.9 % (0.0-4.0); LYMPH # 1.6 K/mm3 (1.5-4.5); LYMPH % 38.9 % (24.0-44.0); MEAN CORPUSCULAR HEMOGLOBIN 30.6 pg (27.0-33.0); MEAN CORPUSCULAR VOLUME 95.6 fl (80.0-96.0); MONO # 0.5 K/mm3 (0.0-0.8); MONO % 12.6 % (0.0-5.0); NEUTROPHILS # 1.6 K/mm3 (1.8-7.7); PLATELET COUNT, AUTOMATED 269 k/mm3 (150-450); RED CELL DISTRIBUTION WIDTH 14.3 % (11.5-14.5); WHITE BLOOD COUNT 4.2 K/mm3 (4.0-10.0)
[2016-12-09 05:59] LABS: ANION GAP 5 MEQ/L (8-16); BLOOD UREA NITROGEN 11 MG/DL (7-18); CALCIUM LEVEL 8.7 MG/DL (8.8-10.2); CARBON DIOXIDE LEVEL 27 MEQ/L (21-32); CHLORIDE LEVEL 109 MEQ/L (98-107); CREATININE FOR GFR 0.55 MG/DL (0.55-1.02); GLOMERULAR FILTRATION RATE > 60.0 (>45); GLUCOSE, FASTING 93 MG/DL (80-110); MAGNESIUM LEVEL 1.7 MG/DL (1.8-2.4); POTASSIUM SERUM 3.5 MEQ/L (3.5-5.1); SODIUM LEVEL 141 MEQ/L (136-145)
--- NOTE | 2016-12-09 06:50 | ECHO ---
DATE OF PROCEDURE: 12/08/2016 HEIGHT: 67 inches. WEIGHT 100 pounds. BODY SURFACE AREA: 1.51 meters squared. Inpatient PCU room 3223 REFERRING PHYSICIAN: Dr. Mike De Los Santos INDICATION: TIA new heading measurements 2-D Measurements: RV - 2.5 cm LV - 4.2 cm Septum - 0.9 cm Posterior wall - 0.9 cm Aortic root 3.3 cm LA - 2.4 cm LVEF - 50% Doppler Measurements: AV - 1.3 m/s LVOT - 1.2 m/s MV-E - 63, A - 110, E/A ratio - 0.6 Early mitral deceleration time - 218 ms E prime - 4.8, A prime - 10, E/E prime ratio - 13.1 PV - 0.9 m/s Pulmonary artery acceleration time - 88 ms RVSP - 39 mmHg IVC - 1.5 cm COMMENTS: Normal sinus rhythm without intraventricular conduction disturbance. Two-dimensional and M-mode echocardiography was performed with pulsed, continuous wave, color flow, and tissue Doppler. CONCLUSIONS: Normal left ventricular size and wall thickness with localized antral apical marked hypo akinesis in keeping with known prior injury. Mild impairment of global resting systolic function. Normal left atrial size with Doppler evidence of an impairment of LV diastolic function but current estimated mean left atrial pressure upper limits of normal. Normal right heart chamber sizes and contraction with mild pulmonary hypertension. Normal IVC size and collapse against an elevated central venous pressure. Slight mitral annular thickening without functional valvular abnormality. Pacing lead (ICD lead) could be visualized traversing right heart structures. No other apparent intracardiac mass or pericardial effusion.
[2016-12-09 08:00] VITALS: BP 113/65
[2016-12-09] MEDS: NYSTATIN 500,000 U/5 ML SUSP UDC PO SCH ×4 (08:29→20:09)
[2016-12-09] MEDS: ENOXAPARIN 30 MG/0.3 ML SYR (J1650) SC SCH (08:30)
[2016-12-09] MEDS: CLOPIDOGREL 75 MG TAB PO SCH (08:30)
[2016-12-09] MEDS: sulfaSALAzine 500 MG TABEC PO SCH ×2 (08:30→20:10)
[2016-12-09] MEDS: AMIODARONE 200 MG TAB (PACERONE) PO SCH (08:30)
[2016-12-09] MEDS: SERTRALINE 100 MG TAB PO SCH ×2 (08:31→20:09)
[2016-12-09] MEDS: valACYclovir HCL 500 MG TAB PO SCH (08:31)
[2016-12-09] MEDS: DIGOXIN 0.125 MG TAB PO SCH (08:31)
[2016-12-09] MEDS: NORCO, ANEXSIA 5/325MG TABLET (HYDROcodone/ACETAMINOPHEN) PO PRN ×3 (08:31→22:16)
[2016-12-09] MEDS: CARVedilol 6.25 MG TAB PO SCH ×2 (08:32→20:10)
[2016-12-09] MEDS: ASPIRIN 81 MG ENTERIC TAB PO SCH (08:32)
[2016-12-09] MEDS ORDERED: MAG SULF 1GM/100ML (MAG RUN) 1 GM in APPROPRIATE DILUENT 1 EA IV ONE (09:00)
[2016-12-09] MEDS: levETIRAcetam INJection 500 MG in D5W MINI-BAG PLUS 100 ML IV SCH ×2 (10:12→20:09)
[2016-12-09] MEDS: CARISOPRODOL 350 MG TAB PO SCH ×2 (10:34→20:10)
[2016-12-09 12:00] VITALS: BP 136/68
[2016-12-09] MEDS: LORazepam 0.5 MG TAB PO PRN ×2 (12:34→20:15)
--- NOTE | 2016-12-09 14:22 | IPNPDOC ---
Subjective Date Seen The patient was seen on 12/09/16. Subjective Chief Complaint/HPI The patient is a 70-year-old female admitted with a reason for visit of Seizure, Transient Ischemic Attack. General: Denies: ROS Unobtainable, Chills, Night Sweats, Fatigue, Malaise, Normal Appetite, Other Symptoms Constitutional: Reports: Other (no appetite), Denies: Chills, Fever, Malaise, Night Sweats, Weakness, Fatigue, Weight Loss , Lethargy Eyes: Denies: Pain, Vision change, Conjunctivae inflammation, Eyelid inflammation, Redness, Other ENT: Denies: Head Aches, Ear Pain, Dysphagia, Sinus Congestion, Post Nasal Drip , Sore Throat, Epistaxis, Other Symptoms Skin: Denies: Rash, Lesions, Jaundice, Bruising, Itching, Dry, Breakdown, Nail Changes, Other Pulmonary: Denies: Dyspnea, Cough, Pleuritic Chest Pain, Other Symptoms Cardiovascular: Denies: Chest Pain, Palpitations, Orthopnea, Paroxysmal Noc. Dyspnea, Edema, Lt Headedness, Other Symptoms Gastrointestinal: Denies: Nausea, Vomiting, Abdominal Pain, Diarrhea, Constipation, Melena, Hematochezia, Other Symptoms Genitourinary: Denies: Dysuria, Frequency, Incontinence, Hematuria, Retention, Other Symptoms Neurological: Reports: Weakness, Other Symptoms (generalized arthritic pain) Objective Physical Examination General Exam: Positive: Alert, Cooperative, No Acute Distress, Other (elderly, frail, appears older than stated age) Eye Exam: Positive: PERRLA, EOMI, Negative: Sclera icteric ENT Exam: Positive: Other ENT (edentulous) Chest Exam: Positive: Clear to auscultation, Normal air movement Heart Exam: Positive: Rate Normal Abdomen Exam: Positive: Normal bowel sounds, Soft, Negative: Tenderness Extremity Exam: Positive: Other (hands are contracted) Psych Exam: Positive: Oriented x 3 Assessment /Plan Problems (1) TIA (transient ischemic attack) Onset Date: 01/09/2014 Status: Resolved Problem Specific Plan: Consult Specialist, Monitor Clinically Problem Text: Deficits - generalized weakness, dyarthria - resolved upon arrival to ED neuro consultation appreciated no MRI 2/2 AICD [id number]/plavix (2) Seizure Status: Acute Discussed With: Patient Problem Specific Plan: Consult Specialist, Monitor Clinically Problem Text: Continue keppra PO neuro c/s appreciated EEG pending report (3) Rheumatoid arthritis Status: Chronic Problem Specific Plan: Monitor Clinically (4) HTN (hypertension) Status: Chronic (5) CAD (coronary artery disease) Status: Chronic Problem Text: Hx of multiple AR's, s/p CABG, ischemic cardiomyopathy. continue corge, lipitor, asa, plavix (6) History of CVA (cerebrovascular accident) Status: Chronic Problem Text: residual dysarthria complicated with history of TBI (7) Arrhythmia Status: Chronic Discussed With: Patient Problem Specific Plan: Monitor Clinically Problem Text: details are not clear, Hx of SVT? - s/p AICD, receiving amiodarone, digoxin, coreg as per home regimen Plan/VTE VTE Prophylaxis Ordered?: Yes (lovenox) Plan Diet: Continue Current Therapy: PT, OT, Speech, Home Safety Eval Pt and Family Services: Home Care (lives home alone) Diagnostics: Repeat Labs in AM, Other Diagnostics (eeg) VS, I&O, 24H, Fishbone Vital Signs/I&O Vital Signs Date Time Temp Pulse Resp B/P (MAP) Pulse Ox O2 Delivery O2 Flow Rate FiO2 12/09/16 12:00 98.4 68 20 136/68 (90) 95 Room Air 12/08/16 00:00 3.0 I&O- Last 24 Hours up to 6 AM 12/09/16 06:00 Intake Total 1185 ml Balance 1185 ml Laboratory Data 24H LABS Laboratory Tests 2 12/08/16 18:24: Anion Gap 6L, Glomerular Filtration Rate > 60.0, Blood Urea Nitrogen 12, Creatinine 0.63, Sodium Level 137, Potassium Level 3.5, Chloride Level 105, Carbon Dioxide Level 26, Calcium Level 8.3L 12/09/16 04:35: Anion Gap 5L, Glomerular Filtration Rate > 60.0, Blood Urea Nitrogen 11, Creatinine 0.55, Sodium Level 141, Potassium Level 3.5, Chloride Level 109H, Carbon Dioxide Level 27, Calcium Level 8.7L, White Blood Count 4.2, Red Blood Count 3.78L, Hemoglobin 11.6L, Hematocrit 36.2, Mean Corpuscular Volume 95.6, Mean Corpuscular Hemoglobin 30.6, Mean Corpuscular Hemoglobin Concent 32.0, Red Cell Distribution Width 14.3, Platelet Count 269, Neutrophils (%) (Auto) 37.0, Lymphocytes (%) (Auto) 38.9, Monocytes (%) (Auto) 12.6H, Eosinophils (%) (Auto) 5.9H, Basophils (%) (Auto) 1.8H, Neutrophils # (Auto) 1.6L, Lymphocytes # (Auto ) 1.6, Monocytes # (Auto) 0.5, Eosinophils # (Auto) 0.2, Basophils # (Auto) 0.1 , Large Unclassified Cells % 3.9, Large Unclassified Cells # 0.2, Magnesium Level 1.7L CBC/BMP Laboratory Tests 12/08/16 18:24 Calcium Level 8.3 L 12/09/16 04:35 Calcium Level 8.7 L, Red Blood Count 3.78 L, Mean Corpuscular Volume 95.6, Mean Corpuscular Hemoglobin 30.6, Mean Corpuscular Hemoglobin Concent 32.0, Red Cell Distribution Width 14.3, Neutrophils (%) (Auto) 37.0, Lymphocytes (%) (Auto) 38.9, Monocytes (%) (Auto) 12.6 H, Eosinophils (%) (Auto) 5.9 H, Basophils (%) ( Auto) 1.8 H, Neutrophils # (Auto) 1.6 L, Lymphocytes # (Auto) 1.6, Monocytes # ( Auto) 0.5, Eosinophils # (Auto) 0.2, Basophils # (Auto) 0.1 KANE NELSON MD Dec 09, 2016 14:22
[2016-12-09 16:00] VITALS: BP 127/68
[2016-12-09 20:00] VITALS: BP 141/74
[2016-12-09] MEDS: ATORVASTATIN 20 MG TAB PO SCH (20:10)
[2016-12-09] MEDS: zolPIDEM TARTRATE 5 MG TAB PO SCH (20:10)
[2016-12-09 23:59] VITALS: BP 123/76
[2016-12-10] MEDS: NORCO, ANEXSIA 5/325MG TABLET (HYDROcodone/ACETAMINOPHEN) PO PRN ×4 (04:26→23:34)
[2016-12-10 04:56] VITALS: BP 148/83
--- NOTE | 2016-12-10 05:08 | EEG ---
DATE OF PROCEDURE: 12/09/2016 REFERRING PHYSICIAN: Dr. Mike De Los Santos DIAGNOSIS: Seizure. EEG NUMBER: [id number]. INTERPRETATION: Patient was noted to be in awake and drowsy states during this EEG. Resting awake background rhythm consisted of 10 Hz alpha activity measuring 15-40 microvolts in amplitude, which was symmetric and reactive to eye opening. Attenuation of posterior dominant was seen during transition into drowsiness. Anteriorly, low voltage and mixed frequency activity was noted. Excessive beta activity was noted in frontal head regions likely due to medication effect. No sleep was achieved. Hyperventilation could not be performed. Photic stimulation remained unremarkable. EKG revealed normal sinus rhythm. No focal, lateralizing or epileptiform abnormalities were seen. No clinical or electrographic seizures were recorded. CONCLUSION: This EEG in awake, drowsy states is within normal limits.
[2016-12-10 05:39] LABS: BASO # 0.1 K/mm3 (0.0-0.2); BASO % 1.4 % (0.0-1.0); EOS # 0.2 K/mm3 (0.0-0.50); EOS % 5.3 % (0.0-3.0); LARGE UNSTAINED CELL # 0.2 K/mm3 (0.0-0.4); LARGE UNSTAINED CELL % 3.9 % (0.0-4.0); LYMPH # 1.2 K/mm3 (1.5-4.5); LYMPH % 26.7 % (24.0-44.0); MEAN CORPUSCULAR HGB CONC 31.3 g/dl (32.0-36.5); MEAN CORPUSCULAR VOLUME 95.9 fl (80.0-96.0); MONO # 0.4 K/mm3 (0.0-0.8); MONO % 9.9 % (0.0-5.0); NEUTROPHILS # 2.1 K/mm3 (1.8-7.7); NEUTROPHILS % 52.7 % (36.0-66.0); PLATELET COUNT, AUTOMATED 263 k/mm3 (150-450); RED CELL DISTRIBUTION WIDTH 14.8 % (11.5-14.5)
[2016-12-10 06:05] LABS: ANION GAP 6 MEQ/L (8-16); BLOOD UREA NITROGEN 8 MG/DL (7-18); CALCIUM LEVEL 8.6 MG/DL (8.8-10.2); CARBON DIOXIDE LEVEL 26 MEQ/L (21-32); CHLORIDE LEVEL 108 MEQ/L (98-107); CREATININE FOR GFR 0.48 MG/DL (0.55-1.02); GLOMERULAR FILTRATION RATE > 60.0 (>39); GLUCOSE, FASTING 94 MG/DL (83-110); MAGNESIUM LEVEL 1.8 MG/DL (1.8-2.4); POTASSIUM SERUM 3.5 MEQ/L (3.5-5.1); SODIUM LEVEL 140 MEQ/L (136-145)
[2016-12-10 08:00] VITALS: BP 140/75
--- NOTE | 2016-12-10 08:30 | ECGEPIP ---
Stationary ECG Study [facility] - ED Test Date: 2016-12-07 Pat Name: CHEIKH RUGGIERO Department: Room: - Gender: F Group Exercise Class Instructor: rn : 1945 Requested By: LIANE Aguirre Order Number: [id number] Reading MD: Airam Krishnamurthy Measurements Intervals [place] Rate: 79 P: 73 NE: 166 QRS: -63 QRSD: 117 T: 88 QT: 359 QTc: 413 Interpretive Statements SINUS RHYTHM LEFT ATRIAL ENLARGEMENT MARKED LEFT AXIS DEVIATION LEFT VENTRICULAR HYPERTROPHY AND ST-T CHANGE POSSIBLE SEPTAL MYOCARDIAL INFARCTION, INDETERMINATE AGE INCREASED RATE 11/19/16 Electronically Signed On 12-10-2016 8:30:29 EDT by Airam Krishnamurthy
--- NOTE | 2016-12-10 08:31 | ECGEPIP ---
Stationary ECG Study [facility] - ED Test Date: 2016-12-07 Pat Name: CHEIKH RUGGIERO Department: Room: - Gender: F Medical Front Desk Coordinator: rn : 1945 Requested By: LIANE Aguirre Order Number: [id number] Reading MD: Airam Krishnamurthy Measurements Intervals [place] Rate: 86 P: 77 SD: 171 QRS: -63 QRSD: 121 T: 86 QT: 386 QTc: 464 Interpretive Statements SINUS RHYTHM POSSIBLE RIGHT ATRIAL ENLARGEMENT LEFT ATRIAL ENLARGEMENT MARKED LEFT AXIS DEVIATION SEPTAL MYOCARDIAL INFARCTION, INDETERMINAT AGE SIMILAR 13:56 Electronically Signed On 12-10-2016 8:31:10 EDT by Airam Krishnamurthy
--- NOTE | 2016-12-10 08:32 | ECGEPIP ---
Stationary ECG Study [facility] - ED Test Date: 2016-12-07 Pat Name: CHEIKH RUGGIERO Department: Room: - Gender: F Religious Ritual Slaughterer: rn : 1945 Requested By: LIANE Aguirre Order Number: [id number] Reading MD: Airam Krishnamurthy Measurements Intervals [place] Rate: 127 P: 79 [place]: 159 QRS: -63 QRSD: 122 T: 77 QT: 412 QTc: 600 Interpretive Statements SINUS TACHYCARDIA MARKED LEFT AXIS DEVIATION SEPTAL MYOCARDIAL INFARCTION, OF INDETERMINATE AGE BASELINE ARTIFACT LIMITS INTERPRETATION INCREASED RATE 14:14 Electronically Signed On 12-10-2016 8:31:59 EDT by Airam Krishnamurthy
[2016-12-10] MEDS: valACYclovir HCL 500 MG TAB PO SCH (09:14)
[2016-12-10] MEDS: CARISOPRODOL 350 MG TAB PO SCH ×2 (09:15→21:32)
[2016-12-10] MEDS: CLOPIDOGREL 75 MG TAB PO SCH (09:15)
[2016-12-10] MEDS: LORazepam 0.5 MG TAB PO PRN ×2 (09:15→21:37)
[2016-12-10] MEDS: NYSTATIN 500,000 U/5 ML SUSP UDC PO SCH ×4 (09:15→21:35)
[2016-12-10] MEDS: ASPIRIN 81 MG ENTERIC TAB PO SCH (09:15)
[2016-12-10] MEDS: levETIRAcetam INJection 500 MG in D5W MINI-BAG PLUS 100 ML IV SCH (09:15)
[2016-12-10] MEDS: sulfaSALAzine 500 MG TABEC PO SCH ×2 (09:15→21:30)
[2016-12-10] MEDS: AMIODARONE 200 MG TAB (PACERONE) PO SCH (09:15)
[2016-12-10] MEDS: DIGOXIN 0.125 MG TAB PO SCH (09:16)
[2016-12-10] MEDS: CARVedilol 6.25 MG TAB PO SCH ×2 (09:16→21:35)
[2016-12-10] MEDS: ENOXAPARIN 30 MG/0.3 ML SYR (J1650) SC SCH (09:16)
[2016-12-10] MEDS: SERTRALINE 100 MG TAB PO SCH ×2 (09:16→21:33)
[2016-12-10 12:00] VITALS: BP 129/69
--- NOTE | 2016-12-10 15:26 | IPNPDOC ---
Subjective Date Seen The patient was seen on 12/10/16. Subjective Chief Complaint/HPI The patient is a 71-year-old female admitted with a reason for visit of Seizure, Transient Ischemic Attack. Events since last encounter Wants to go home, planning for tomorrow if able, no pain, no chest pain, tolerating diet, declined home nursing visits Constitutional: Denies: Chills, Fever Pulmonary: Denies: Dyspnea, Cough Cardiovascular: Denies: Chest Pain Gastrointestinal: Denies: Nausea, Vomiting, Abdominal Pain Objective Physical Examination General Exam: Positive: Alert, Cooperative, No Acute Distress, Other Eye Exam: Positive: PERRLA, EOMI, Negative: Sclera icteric ENT Exam: Positive: Other ENT (edentulous) Chest Exam: Positive: Clear to auscultation, Normal air movement, Negative: Rhonchi, Wheezing Heart Exam: Positive: Rate Normal, Regular Rhythm, Normal S1, Normal S2 Telemetry: Positive: No significant arrhythmia Abdomen Exam: Positive: Normal bowel sounds, Soft, Negative: Tenderness Extremity Exam: Positive: Other (hands are contracted) Neuro Exam: Negative: Normal Speech Psych Exam: Positive: Oriented x 3 Assessment /Plan Problems (1) TIA (transient ischemic attack) Onset Date: 01/09/2014 Status: Resolved Problem Specific Plan: Consult Specialist, Monitor Clinically Problem Text: Deficits - generalized weakness, dyarthria - resolved upon arrival to ED neuro consultation obtained no MRI 2/2 AICD ASA81/plavix (2) Seizure Status: Acute Discussed With: Patient Problem Specific Plan: Consult Specialist, Monitor Clinically Problem Text: Continue keppra PO neuro c/s appreciated EEG showed no seizure activity (3) Rheumatoid arthritis Status: Chronic Problem Specific Plan: Monitor Clinically (4) HTN (hypertension) Status: Chronic (5) CAD (coronary artery disease) Status: Chronic Problem Text: Hx of multiple NE's, s/p CABG, ischemic cardiomyopathy. 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 - s/p AICD, receiving amiodarone, digoxin, coreg as per home regimen (8) Protein-calorie malnutrition, severe Problem Text: following lease administration supervisor recommendations Plan/VTE VTE Prophylaxis Ordered?: Yes (lovenox) Plan Diet: Continue Current Therapy: PT, OT, Speech, Home Safety Eval Pt and Family Services: Home Care (lives home alone) Diagnostics: Repeat Labs in AM, Other Diagnostics (eeg) VS, I&O, 24H, Fishbone Vital Signs/I&O Vital Signs Date Time Temp Pulse Resp B/P (MAP) Pulse Ox O2 Delivery O2 Flow Rate FiO2 12/10/16 11:46 18 12/10/16 09:16 72 12/10/16 09:16 124/74 12/10/16 08:00 98.1 94 Room Air 12/08/16 00:00 3.0 I&O- Last 24 Hours up to 6 AM 12/10/16 05:59 Intake Total 2070 ml Output Total 0 ml Balance 2070 ml Laboratory Data 24H LABS Laboratory Tests 2 12/10/16 05:29: White Blood Count 4.0, Red Blood Count 3.78L, Hemoglobin 11.3L, Hematocrit 36.2 , Mean Corpuscular Volume 95.9, Mean Corpuscular Hemoglobin 30.0, Mean Corpuscular Hemoglobin Concent 31.3L, Red Cell Distribution Width 14.8H, Platelet Count 263, Neutrophils (%) (Auto) 52.7, Lymphocytes (%) (Auto) 26.7, Monocytes (%) (Auto) 9.9H, Eosinophils (%) (Auto) 5.3H, Basophils (%) (Auto) 1.4H, Neutrophils # (Auto) 2.1, Lymphocytes # (Auto) 1.2L, Monocytes # (Auto) 0.4, Eosinophils # (Auto) 0.2, Basophils # (Auto) 0.1, Large Unclassified Cells % 3.9, Large Unclassified Cells # 0.2, Anion Gap 6L, Glomerular Filtration Rate > 60.0, Blood Urea Nitrogen 8, Creatinine 0.48L, Sodium Level 140, Potassium Level 3.5, Chloride Level 108H, Carbon Dioxide Level 26, Calcium Level 8.6L, Magnesium Level 1.8 CBC/BMP Laboratory Tests 12/10/16 05:29 Red Blood Count 3.78 L, Mean Corpuscular Volume 95.9, Mean Corpuscular Hemoglobin 30.0, Mean Corpuscular Hemoglobin Concent 31.3 L, Red Cell Distribution Width 14.8 H, Neutrophils (%) (Auto) 52.7, Lymphocytes (%) (Auto) 26.7, Monocytes (%) (Auto) 9.9 H, Eosinophils (%) (Auto) 5.3 H, Basophils (%) ( Auto) 1.4 H, Neutrophils # (Auto) 2.1, Lymphocytes # (Auto) 1.2 L, Monocytes # ( Auto) 0.4, Eosinophils # (Auto) 0.2, Basophils # (Auto) 0.1, Calcium Level 8.6 L SALLY MARAVILLA MD Dec 10, 2016 15:26
[2016-12-10] MEDS: DOCUSATE SODIUM 100 MG CAP PO PRN (17:26)
[2016-12-10 18:00] VITALS: BP 142/90
[2016-12-10] MEDS: levETIRAcetam **XR** 500 MG TABLET PO SCH (21:31)
[2016-12-10] MEDS: zolPIDEM TARTRATE 5 MG TAB PO SCH (21:31)
[2016-12-10] MEDS: ATORVASTATIN 20 MG TAB PO SCH (21:33)
[2016-12-10 22:00] VITALS: BP 150/98
[2016-12-11] VITALS (8 sets, daily range): BP systolic 97–182; BP diastolic 59–94
[2016-12-11] MEDS: NORCO, ANEXSIA 5/325MG TABLET (HYDROcodone/ACETAMINOPHEN) PO PRN ×3 (05:27→18:30)
[2016-12-11 06:41] LABS: BASO # 0.1 K/mm3 (0.0-0.2); BASO % 1.5 % (0.0-1.0); EOS # 0.2 K/mm3 (0.0-0.50); EOS % 5.1 % (0.0-3.0); LARGE UNSTAINED CELL # 0.1 K/mm3 (0.0-0.4); LYMPH # 1.2 K/mm3 (1.5-4.5); LYMPH % 25.7 % (24.0-44.0); MEAN CORPUSCULAR HEMOGLOBIN 30.5 pg (27.0-33.0); MEAN CORPUSCULAR VOLUME 95.3 fl (80.0-96.0); MONO # 0.3 K/mm3 (0.0-0.8); MONO % 6.8 % (0.0-5.0); NEUTROPHILS # 2.6 K/mm3 (1.8-7.7); NEUTROPHILS % 57.7 % (36.0-66.0); PLATELET COUNT, AUTOMATED 277 k/mm3 (150-450); RED CELL DISTRIBUTION WIDTH 14.2 % (11.5-14.5); WHITE BLOOD COUNT 4.5 K/mm3 (4.0-10.0)
[2016-12-11 07:05] LABS: ANION GAP 7 MEQ/L (8-16); BLOOD UREA NITROGEN 9 MG/DL (7-18); CALCIUM LEVEL 8.5 MG/DL (8.8-10.2); CARBON DIOXIDE LEVEL 26 MEQ/L (21-32); CHLORIDE LEVEL 106 MEQ/L (98-107); CREATININE FOR GFR 0.44 MG/DL (0.55-1.02); GLOMERULAR FILTRATION RATE > 60.0 (>39); GLUCOSE, FASTING 93 MG/DL (83-110); MAGNESIUM LEVEL 1.8 MG/DL (1.8-2.4); POTASSIUM SERUM 3.4 MEQ/L (3.5-5.1); SODIUM LEVEL 139 MEQ/L (136-145)
[2016-12-11] MEDS: NYSTATIN 500,000 U/5 ML SUSP UDC PO SCH ×4 (09:34→20:20)
[2016-12-11] MEDS: valACYclovir HCL 500 MG TAB PO SCH (09:34)
[2016-12-11] MEDS: sulfaSALAzine 500 MG TABEC PO SCH ×2 (09:34→20:20)
[2016-12-11] MEDS: levETIRAcetam **XR** 500 MG TABLET PO SCH ×2 (09:34→20:20)
[2016-12-11] MEDS: DOCUSATE SODIUM 100 MG CAP PO PRN (09:35)
[2016-12-11] MEDS: CARVedilol 6.25 MG TAB PO SCH ×2 (09:35→20:21)
[2016-12-11] MEDS: AMIODARONE 200 MG TAB (PACERONE) PO SCH (09:35)
[2016-12-11] MEDS: ENOXAPARIN 30 MG/0.3 ML SYR (J1650) SC SCH (09:35)
[2016-12-11] MEDS: SERTRALINE 100 MG TAB PO SCH ×2 (09:35→20:20)
[2016-12-11] MEDS: DIGOXIN 0.125 MG TAB PO SCH (09:36)
[2016-12-11] MEDS: ASPIRIN 81 MG ENTERIC TAB PO SCH (09:36)
[2016-12-11] MEDS: CLOPIDOGREL 75 MG TAB PO SCH (09:36)
[2016-12-11] MEDS: LORazepam 0.5 MG TAB PO PRN (09:37)
[2016-12-11] MEDS ORDERED: MORPHINE 2 MG/ML 1ML SYRINGE IV STA ×2 (12:06→12:36)
[2016-12-11] MEDS: CARISOPRODOL 350 MG TAB PO SCH ×2 (12:15→20:19)
[2016-12-11] MEDS ORDERED: NITROGLYCERIN 2% OINT 1 GM *U/D* PKT TOP ONE (12:45)
[2016-12-11] MEDS: ONDANSETRON 4MG/2ML VIAL (J2405) IV PRN (13:13)
--- NOTE | 2016-12-11 13:31 | REP ---
PORTABLE CHEST: AP portable view of the chest is performed and compared to prior study of 12/01/2015. There is no evidence of acute infiltrate or pulmonary edema. The heart is upper limits of normal in size. Multiple sternal wires and mediastinal clips are present. Left single lead pacemaker is again noted. IMPRESSION: No acute pulmonary disease. Signed by Nikhil Tejada MD 12/12/2016 05:09 P
[2016-12-11] MEDS ORDERED: KETOROLAC 30 MG/ML VIAL (J1885) IV PRN (16:30)
[2016-12-11] MEDS: HYDROmorphone HCL 1 MG/ML SYRINGE (J1170) IV PRN ×2 (17:44→20:53)
--- NOTE | 2016-12-11 18:58 | IPNPDOC ---
Subjective Date Seen The patient was seen on 12/11/16. Subjective Chief Complaint/HPI The patient is a 71-year-old female admitted with a reason for visit of Seizure, Transient Ischemic Attack. Events since last encounter Developed chest discomfort this morning, worse with deep breathing, no cough, not sob, developed nausea after a dose of morphine, no radiation Constitutional: Denies: Chills, Fever Skin: Denies: Rash Pulmonary: Denies: Dyspnea, Cough Cardiovascular: Reports: Chest Pain, Denies: Palpitations Objective Physical Examination General Exam: Positive: Alert, Cooperative, No Acute Distress, Other Eye Exam: Positive: PERRLA, EOMI, Negative: Sclera icteric ENT Exam: Positive: Other ENT (edentulous) Chest Exam: Positive: Clear to auscultation, Normal air movement, Negative: Rhonchi, Wheezing Heart Exam: Positive: Rate Normal, Regular Rhythm, Normal S1, Normal S2, Negative: Tachycardic Telemetry: Positive: No significant arrhythmia Abdomen Exam: Positive: Normal bowel sounds, Soft, Negative: Tenderness Extremity Exam: Positive: Other (hands are contracted) Neuro Exam: Negative: Normal Speech Psych Exam: Positive: Oriented x 3 Assessment /Plan Problems (1) Chest pain Status: Acute Problem Text: developed chest pain today, reproducible, pleuritic, positional no acute ekg changes, transfer to pcu for monitoring based on history cycle troponins I discussed with next of kin by phone (2) TIA (transient ischemic attack) Onset Date: 01/09/2014 Status: Resolved Problem Specific Plan: Consult Specialist, Monitor Clinically Problem Text: Deficits - generalized weakness, dyarthria - resolved upon arrival to ED neuro consultation obtained no MRI 2/2 AICD ASA81/plavix (3) Seizure Status: Acute Discussed With: Patient Problem Specific Plan: Consult Specialist, Monitor Clinically Problem Text: Continue keppra PO neuro c/s appreciated EEG showed no seizure activity (4) Rheumatoid arthritis Status: Chronic Problem Specific Plan: Monitor Clinically (5) HTN (hypertension) Status: Chronic (6) CAD (coronary artery disease) Status: Chronic Problem Text: Hx of multiple OK's, s/p CABG, ischemic cardiomyopathy. 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 - s/p AICD, receiving amiodarone, digoxin, coreg as per home regimen (9) Protein-calorie malnutrition, severe Problem Text: following chemical strength tester recommendations Plan/VTE VTE Prophylaxis Ordered?: Yes (lovenox) VS, I&O, 24H, Fishbone Vital Signs/I&O Vital Signs Date Time Temp Pulse Resp B/P (MAP) Pulse Ox O2 Delivery O2 Flow Rate FiO2 12/11/16 18:30 20 Room Air 12/11/16 16:00 98.0 75 111/72 (85) 95 12/08/16 00:00 3.0 I&O- Last 24 Hours up to 6 AM 12/11/16 06:00 Intake Total 1425 ml Output Total 250 ml Balance 1175 ml Laboratory Data 24H LABS Laboratory Tests 2 12/11/16 06:07: White Blood Count 4.5, Red Blood Count 3.91L, Hemoglobin 11.9L, Hematocrit 37.3 , Mean Corpuscular Volume 95.3, Mean Corpuscular Hemoglobin 30.5, Mean Corpuscular Hemoglobin Concent 32.0, Red Cell Distribution Width 14.2, Platelet Count 277, Neutrophils (%) (Auto) 57.7, Lymphocytes (%) (Auto) 25.7, Monocytes ( %) (Auto) 6.8H, Eosinophils (%) (Auto) 5.1H, Basophils (%) (Auto) 1.5H, Neutrophils # (Auto) 2.6, Lymphocytes # (Auto) 1.2L, Monocytes # (Auto) 0.3, Eosinophils # (Auto) 0.2, Basophils # (Auto) 0.1, Large Unclassified Cells % 3.0 , Large Unclassified Cells # 0.1, Anion Gap 7L, Glomerular Filtration Rate > 60.0, Blood Urea Nitrogen 9, Creatinine 0.44L, Sodium Level 139, Potassium Level 3.4L, Chloride Level 106, Carbon Dioxide Level 26, Calcium Level 8.5L, Magnesium Level 1.8 12/11/16 12:44: Lactic Acid Level 1.5, Total Creatine Kinase 75, Creatine Kinase MB 1.0, Creatine Kinase MB Relative Index 1.33, Troponin I < 0.02, B-Type Natriuretic Peptide 198H 12/11/16 18:21: CBC/BMP Laboratory Tests 12/11/16 06:07 Red Blood Count 3.91 L, Mean Corpuscular Volume 95.3, Mean Corpuscular Hemoglobin 30.5, Mean Corpuscular Hemoglobin Concent 32.0, Red Cell Distribution Width 14.2, Neutrophils (%) (Auto) 57.7, Lymphocytes (%) (Auto) 25.7, Monocytes (%) (Auto) 6.8 H, Eosinophils (%) (Auto) 5.1 H, Basophils (%) ( Auto) 1.5 H, Neutrophils # (Auto) 2.6, Lymphocytes # (Auto) 1.2 L, Monocytes # ( Auto) 0.3, Eosinophils # (Auto) 0.2, Basophils # (Auto) 0.1, Calcium Level 8.5 L SALLY MARAVILLA MD Dec 11, 2016 18:58
[2016-12-11] MEDS: ATORVASTATIN 20 MG TAB PO SCH (20:20)
[2016-12-11] MEDS: zolPIDEM TARTRATE 5 MG TAB PO SCH (20:20)
[2016-12-12] VITALS (7 sets, daily range): BP systolic 97–140; BP diastolic 53–90
[2016-12-12] MEDS: NORCO, ANEXSIA 5/325MG TABLET (HYDROcodone/ACETAMINOPHEN) PO PRN ×3 (00:03→14:10)
[2016-12-12 05:50] LABS: BASO # 0.1 K/mm3 (0.0-0.2); BASO % 1.8 % (0.0-1.0); EOS # 0.2 K/mm3 (0.0-0.50); EOS % 5.8 % (0.0-3.0); LARGE UNSTAINED CELL # 0.2 K/mm3 (0.0-0.4); LARGE UNSTAINED CELL % 3.9 % (0.0-4.0); LYMPH # 1.6 K/mm3 (1.5-4.5); LYMPH % 39.7 % (24.0-44.0); MEAN CORPUSCULAR HEMOGLOBIN 31.5 pg (27.0-33.0); MEAN CORPUSCULAR HGB CONC 32.9 g/dl (32.0-36.5); MEAN CORPUSCULAR VOLUME 95.7 fl (80.0-96.0); MONO # 0.4 K/mm3 (0.0-0.8); MONO % 10.5 % (0.0-5.0); NEUTROPHILS # 1.5 K/mm3 (1.8-7.7); NEUTROPHILS % 38.3 % (36.0-66.0); PLATELET COUNT, AUTOMATED 249 k/mm3 (150-450); RED CELL DISTRIBUTION WIDTH 14.5 % (11.5-14.5); WHITE BLOOD COUNT 3.8 K/mm3 (4.0-10.0)
[2016-12-12 05:59] LABS: ANION GAP 7 MEQ/L (8-16); BLOOD UREA NITROGEN 10 MG/DL (7-18); CALCIUM LEVEL 8.7 MG/DL (8.8-10.2); CARBON DIOXIDE LEVEL 27 MEQ/L (21-32); CHLORIDE LEVEL 106 MEQ/L (98-107); CREATININE FOR GFR 0.51 MG/DL (0.55-1.02); GLOMERULAR FILTRATION RATE > 60.0 (>39); GLUCOSE, FASTING 91 MG/DL (83-110); MAGNESIUM LEVEL 1.9 MG/DL (1.8-2.4); POTASSIUM SERUM 3.9 MEQ/L (3.5-5.1); SODIUM LEVEL 140 MEQ/L (136-145)
[2016-12-12] MEDS: ONDANSETRON 4MG/2ML VIAL (J2405) IV PRN (06:28)
[2016-12-12] MEDS: HYDROmorphone HCL 1 MG/ML SYRINGE (J1170) IV PRN ×6 (08:07→23:43)
[2016-12-12] MEDS: sulfaSALAzine 500 MG TABEC PO SCH ×2 (08:11→20:34)
[2016-12-12] MEDS: NYSTATIN 500,000 U/5 ML SUSP UDC PO SCH ×4 (08:11→20:30)
[2016-12-12] MEDS: CARVedilol 6.25 MG TAB PO SCH ×2 (08:11→20:31)
[2016-12-12] MEDS: levETIRAcetam **XR** 500 MG TABLET PO SCH ×2 (08:11→20:34)
[2016-12-12] MEDS: DOCUSATE SODIUM 100 MG CAP PO PRN (08:11)
[2016-12-12] MEDS: ENOXAPARIN 30 MG/0.3 ML SYR (J1650) SC SCH (08:11)
[2016-12-12] MEDS: AMIODARONE 200 MG TAB (PACERONE) PO SCH (08:11)
[2016-12-12] MEDS: ASPIRIN 81 MG ENTERIC TAB PO SCH (08:12)
[2016-12-12] MEDS: SERTRALINE 100 MG TAB PO SCH ×2 (08:12→20:31)
[2016-12-12] MEDS: DIGOXIN 0.125 MG TAB PO SCH (08:12)
[2016-12-12] MEDS: CLOPIDOGREL 75 MG TAB PO SCH (08:13)
[2016-12-12] MEDS ORDERED: ISOVUE-370 76% 100ML VIAL (Q9967) As Ordered ONE (08:40)
--- NOTE | 2016-12-12 08:42 | IPNPDOC ---
Subjective Date Seen The patient was seen on 12/12/16. Subjective Chief Complaint/HPI The patient is a 71-year-old female admitted with a reason for visit of Seizure, Transient Ischemic Attack. Events since last encounter Has sharp, pleuritic chest pain, substernal, not short of breath, better with dilaudid, waxes and wanes, non-radiating Constitutional: Denies: Chills, Fever Pulmonary: Denies: Dyspnea, Cough Cardiovascular: Reports: Chest Pain, Denies: Palpitations Gastrointestinal: Denies: Nausea, Vomiting, Abdominal Pain Objective Physical Examination General Exam: Positive: Alert, Cooperative, Mild Distress, Other Eye Exam: Positive: PERRLA, Negative: Sclera icteric ENT Exam: Positive: Mucous membr. moist/pink, Other ENT (edentulous) Chest Exam: Positive: Diminished, Negative: Rales, Rhonchi, Wheezing Heart Exam: Positive: Rate Normal, Regular Rhythm, Normal S1, Normal S2, Negative: Tachycardic Telemetry: Positive: No significant arrhythmia Abdomen Exam: Positive: Normal bowel sounds, Soft, Negative: Tenderness Extremity Exam: Positive: Other (hands are contracted with ulnar deviation) Neuro Exam: Negative: Normal Speech Psych Exam: Positive: Oriented x 3 Assessment /Plan Problems (1) Chest pain Status: Acute Problem Text: developed chest pain 12/11/16, reproducible, pleuritic, positional no acute ekg changes, transfered to pcu for monitoring based on history cycled troponins negative I discussed with next of kin by phone 12/11/16 Continues 12/12/16 likely arthritic, but will get ct angio based on contiued need for dilaudid- repeat ekg (2) TIA (transient ischemic attack) Onset Date: 01/09/2014 Status: Resolved Problem Specific Plan: Consult Specialist, Monitor Clinically Problem Text: Deficits - generalized weakness, dyarthria - resolved upon arrival to ED neuro consultation obtained no MRI 2/2 AICD [id number]/plavix Likely related to postictal state (3) Seizure Status: Acute Discussed With: Patient Problem Specific Plan: Consult Specialist, Monitor Clinically Problem Text: Continue keppra PO neuro c/s appreciated EEG showed no seizure activity (4) Rheumatoid arthritis Status: Chronic Problem Specific Plan: Monitor Clinically Problem Text: may benefit from steroid pulse (5) HTN (hypertension) Status: Chronic (6) CAD (coronary artery disease) Status: Chronic Problem Text: Hx of multiple PR's, s/p CABG, ischemic cardiomyopathy. 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 - s/p AICD, receiving amiodarone, digoxin, coreg as per home regimen (9) Protein-calorie malnutrition, severe Problem Text: following ichthyology teacher recommendations Plan/VTE VTE Prophylaxis Ordered?: Yes (lovenox) VS, I&O, 24H, Fishbone Vital Signs/I&O Vital Signs Date Time Temp Pulse Resp B/P (MAP) Pulse Ox O2 Delivery O2 Flow Rate FiO2 12/12/16 08:23 Room Air 12/12/16 08:12 81 12/12/16 08:11 140/90 12/12/16 08:07 20 12/12/16 04:00 97.5 92 12/08/16 00:00 3.0 I&O- Last 24 Hours up to 6 AM 12/12/16 06:00 Intake Total 240 ml Output Total 100 ml Balance 140 ml Laboratory Data 24H LABS Laboratory Tests 2 12/11/16 12:44: Lactic Acid Level 1.5, Total Creatine Kinase 75, Creatine Kinase MB 1.0, Creatine Kinase MB Relative Index 1.33, Troponin I < 0.02, B-Type Natriuretic Peptide 198H 12/11/16 18:21: Total Creatine Kinase 63, Creatine Kinase MB 1.0, Creatine Kinase MB Relative Index 1.58, Troponin I < 0.02 12/12/16 00:28: Total Creatine Kinase 49, Creatine Kinase MB 1.0, Creatine Kinase MB Relative Index 2.04, Troponin I < 0.02 12/12/16 05:31: White Blood Count 3.8L, Red Blood Count 3.68L, Hemoglobin 11.6L, Hematocrit 35.2L, Mean Corpuscular Volume 95.7, Mean Corpuscular Hemoglobin 31.5, Mean Corpuscular Hemoglobin Concent 32.9, Red Cell Distribution Width 14.5, Platelet Count 249, Neutrophils (%) (Auto) 38.3, Lymphocytes (%) (Auto) 39.7, Monocytes ( %) (Auto) 10.5H, Eosinophils (%) (Auto) 5.8H, Basophils (%) (Auto) 1.8H, Neutrophils # (Auto) 1.5L, Lymphocytes # (Auto) 1.6, Monocytes # (Auto) 0.4, Eosinophils # (Auto) 0.2, Basophils # (Auto) 0.1, Large Unclassified Cells % 3.9 , Large Unclassified Cells # 0.2, Anion Gap 7L, Glomerular Filtration Rate > 60.0, Blood Urea Nitrogen 10, Creatinine 0.51L, Sodium Level 140, Potassium Level 3.9, Chloride Level 106, Carbon Dioxide Level 27, Calcium Level 8.7L, Magnesium Level 1.9 CBC/BMP Laboratory Tests 12/12/16 05:31 Red Blood Count 3.68 L, Mean Corpuscular Volume 95.7, Mean Corpuscular Hemoglobin 31.5, Mean Corpuscular Hemoglobin Concent 32.9, Red Cell Distribution Width 14.5, Neutrophils (%) (Auto) 38.3, Lymphocytes (%) (Auto) 39.7, Monocytes (%) (Auto) 10.5 H, Eosinophils (%) (Auto) 5.8 H, Basophils (%) ( Auto) 1.8 H, Neutrophils # (Auto) 1.5 L, Lymphocytes # (Auto) 1.6, Monocytes # ( Auto) 0.4, Eosinophils # (Auto) 0.2, Basophils # (Auto) 0.1, Calcium Level 8.7 L SALLY MARAVILLA MD Dec 12, 2016 08:42
--- NOTE | 2016-12-12 10:49 | REP ---
Greenish are all CT of the chest, pulmonary CT angiography: Comparisons 10/15/2013. There are no emboli in the pulmonary trunk or central pulmonary arteries. There are no emboli in the pulmonary artery lobe or segment branches on the right on the left. There are no acute infiltrates or effusions. There is dependent atelectasis in the lower lung bui bilaterally. No masses or nodules are identified. There is no mediastinal or hilar adenopathy. No axillary adenopathy. There is a pacemaker. Cardiac size is borderline enlarged. The visualized upper abdominal contents are unremarkable. There are numerous tiny bulla scattered throughout the lung bui bilaterally. Impression: There are no pulmonary emboli. No acute infiltrates or effusions. No masses. Tiny bulla are scattered throughout the lung bui bilaterally. Cardiac size is borderline enlarged. There is a pacemaker. Signed by Nikhil Bryant MD 12/12/2016 10:40 A
[2016-12-12] MEDS: methylPREDNISolone INJ 125 MG/2 ML VIAL (J2930) IV SCH ×2 (10:56→20:32)
[2016-12-12] MEDS: valACYclovir HCL 500 MG TAB PO SCH (10:57)
[2016-12-12] MEDS: CARISOPRODOL 350 MG TAB PO SCH ×2 (10:57→20:31)
[2016-12-12] MEDS: ATORVASTATIN 20 MG TAB PO SCH (20:31)
[2016-12-12] MEDS: zolPIDEM TARTRATE 5 MG TAB PO SCH (20:31)
--- NOTE | 2016-12-13 00:15 | ECGEPIP ---
Stationary ECG Study [facility] Test Date: 2016-12-11 Pat Name: CHEIKH RUGGIERO Department: Room: [place] [address] Gender: F Clinical Nursing Professor: GURDEEP : 1945 Requested By: SALLY Qureshi Order Number: [id number] Reading MD: Ashok Licea Measurements Intervals [place] Rate: 77 P: 68 ID: [id number] QRS: -59 QRSD: 115 T: 85 QT: 370 QTc: 420 Interpretive Statements SINUS RHYTHM LEFT ANTERIOR FASCICULAR BLOCK LEFT VENTRICULAR HYPERTROPHY AND ST-T CHANGE POSSIBLE SEPTAL MYOCARDIAL INFARCTION, OLD Compared to the last 4 tracings in the system, no significant changes Electronically Signed On 12-13-2016 0:14:57 EDT by Ashok Licea
--- NOTE | 2016-12-13 00:32 | ECGEPIP ---
Stationary ECG Study [facility] Test Date: 2016-12-12 Pat Name: CHEIKH RUGGIERO Department: Room: [place] [address] Gender: F Loan Broker: CONSUELO : 1945 Requested By: SALLY Qureshi Order Number: [id number] Reading MD: Ashok Licea Measurements Intervals [place] Rate: 64 P: 69 SC: 177 QRS: -62 QRSD: 115 T: 0 QT: 394 QTc: 409 Interpretive Statements SINUS RHYTHM LEFT ATRIAL ENLARGEMENT LEFT ANTERIOR FASCICULAR BLOCK LEFT VENTRICULAR HYPERTROPHY AND ST-T CHANGE ANTEROSEPTAL MYOCARDIAL INFARCTION, OLD COMPARED TO THE LAST TRACING ON 12/11/2016 AT 12:24:33, NO REMARKABLE CHANGES Electronically Signed On 12-13-2016 0:32:00 EDT by Ashok Licea
[2016-12-13 02:00] VITALS: BP 117/71
[2016-12-13] MEDS: HYDROmorphone HCL 1 MG/ML SYRINGE (J1170) IV PRN ×6 (02:56→21:06)
[2016-12-13] MEDS: NORCO, ANEXSIA 5/325MG TABLET (HYDROcodone/ACETAMINOPHEN) PO PRN (03:25)
[2016-12-13 06:00] VITALS: BP 112/71
[2016-12-13 06:04] LABS: BASO % 0.4 % (0.0-1.0); EOS % 0.2 % (0.0-3.0); LARGE UNSTAINED CELL # 0.1 K/mm3 (0.0-0.4); LARGE UNSTAINED CELL % 1.6 % (0.0-4.0); LYMPH # 1.2 K/mm3 (1.5-4.5); LYMPH % 29.9 % (24.0-44.0); MEAN CORPUSCULAR HEMOGLOBIN 31.1 pg (27.0-33.0); MEAN CORPUSCULAR HGB CONC 32.6 g/dl (32.0-36.5); MEAN CORPUSCULAR VOLUME 95.4 fl (80.0-96.0); MONO # 0.2 K/mm3 (0.0-0.8); NEUTROPHILS # 2.4 K/mm3 (1.8-7.7); NEUTROPHILS % 61.9 % (36.0-66.0); PLATELET COUNT, AUTOMATED 290 k/mm3 (150-450); RED CELL DISTRIBUTION WIDTH 14.3 % (11.5-14.5); WHITE BLOOD COUNT 3.8 K/mm3 (4.0-10.0)
[2016-12-13 06:14] LABS: ANION GAP 6 MEQ/L (8-16); BLOOD UREA NITROGEN 13 MG/DL (7-18); CALCIUM LEVEL 8.9 MG/DL (8.8-10.2); CARBON DIOXIDE LEVEL 28 MEQ/L (21-32); CHLORIDE LEVEL 105 MEQ/L (98-107); CREATININE FOR GFR 0.49 MG/DL (0.55-1.02); GLOMERULAR FILTRATION RATE > 60.0 (>39); GLUCOSE, FASTING 117 MG/DL (83-110); POTASSIUM SERUM 4.1 MEQ/L (3.5-5.1); SODIUM LEVEL 139 MEQ/L (136-145)
[2016-12-13] MEDS: NYSTATIN 500,000 U/5 ML SUSP UDC PO SCH ×4 (08:04→20:20)
[2016-12-13] MEDS: DIGOXIN 0.125 MG TAB PO SCH (08:05)
[2016-12-13] MEDS: CARISOPRODOL 350 MG TAB PO SCH ×2 (08:05→20:20)
[2016-12-13] MEDS: levETIRAcetam **XR** 500 MG TABLET PO SCH ×2 (08:05→20:20)
[2016-12-13] MEDS: sulfaSALAzine 500 MG TABEC PO SCH ×2 (08:05→20:20)
[2016-12-13] MEDS: ASPIRIN 81 MG ENTERIC TAB PO SCH (08:05)
[2016-12-13] MEDS: ENOXAPARIN 30 MG/0.3 ML SYR (J1650) SC SCH (08:05)
[2016-12-13] MEDS: CARVedilol 6.25 MG TAB PO SCH ×2 (08:06→20:20)
[2016-12-13] MEDS: valACYclovir HCL 500 MG TAB PO SCH (08:06)
[2016-12-13] MEDS: CLOPIDOGREL 75 MG TAB PO SCH (08:06)
[2016-12-13] MEDS: AMIODARONE 200 MG TAB (PACERONE) PO SCH (08:06)
[2016-12-13] MEDS: methylPREDNISolone INJ 125 MG/2 ML VIAL (J2930) IV SCH ×2 (08:06→20:21)
[2016-12-13] MEDS: SERTRALINE 100 MG TAB PO SCH ×2 (08:06→20:21)
[2016-12-13 10:00] VITALS: BP 95/51
--- NOTE | 2016-12-13 12:52 | IPNPDOC ---
Subjective Date Seen The patient was seen on 12/13/16. Subjective Chief Complaint/HPI The patient is a 71-year-old female admitted with a reason for visit of Seizure, Transient Ischemic Attack. Events since last encounter Has chest/back pain, pleuritic, reproducible, helped with medication, not better than yesterday Constitutional: Denies: Chills, Fever Pulmonary: Denies: Dyspnea, Cough Cardiovascular: Reports: Chest Pain, Denies: Palpitations Gastrointestinal: Denies: Nausea, Vomiting Musculoskeletal: Reports: Back Pain Objective Physical Examination General Exam: Positive: Alert, Mild Distress, Other Eye Exam: Positive: PERRLA, Negative: Sclera icteric ENT Exam: Positive: Mucous membr. moist/pink, Other ENT (edentulous) Chest Exam: Positive: Diminished, Negative: Rales, Rhonchi, Wheezing Heart Exam: Positive: Rate Normal, Regular Rhythm, Normal S1, Normal S2, Negative: Tachycardic Telemetry: Positive: No significant arrhythmia Abdomen Exam: Positive: Normal bowel sounds, Soft, Negative: Tenderness Extremity Exam: Positive: Other (hands are contracted with ulnar deviation) Neuro Exam: Negative: Normal Speech Psych Exam: Positive: Oriented x 3 Assessment /Plan Problems (1) Chest pain Status: Acute Problem Text: developed chest pain 12/11/16, reproducible, pleuritic, positional no acute ekg changes, transfered to pcu for monitoring based on history cycled troponins negative I discussed with next of kin by phone 12/11/16 Continues 12/13/16 likely arthritic, ct angio negative- started steroids (2) TIA (transient ischemic attack) Onset Date: 01/09/2014 Status: Resolved Problem Specific Plan: Consult Specialist, Monitor Clinically Problem Text: Deficits - generalized weakness, dyarthria - resolved upon arrival to ED neuro consultation obtained no MRI 2/2 AICD ASA81/plavix Likely related to postictal state (3) Seizure Status: Acute Discussed With: Patient Problem Specific Plan: Consult Specialist, Monitor Clinically Problem Text: Continue keppra PO neuro c/s appreciated EEG showed no seizure activity (4) Rheumatoid arthritis Status: Chronic Problem Specific Plan: Monitor Clinically Problem Text: may benefit from steroid pulse which was started 12/12/16 (5) HTN (hypertension) Status: Chronic (6) CAD (coronary artery disease) Status: Chronic Problem Text: Hx of multiple PR's, s/p CABG, ischemic cardiomyopathy. 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 - s/p AICD, receiving amiodarone, digoxin, coreg as per home regimen (9) Protein-calorie malnutrition, severe Problem Text: following automotive product specialist recommendations Plan/VTE VTE Prophylaxis Ordered?: Yes (lovenox) VS, I&O, 24H, Fishbone Vital Signs/I&O Vital Signs Date Time Temp Pulse Resp B/P (MAP) Pulse Ox O2 Delivery O2 Flow Rate FiO2 12/13/16 11:32 16 12/13/16 10:00 98.1 71 95/51 (66) 93 Room Air 12/08/16 00:00 3.0 I&O- Last 24 Hours up to 6 AM 12/13/16 06:00 Intake Total 1020 ml Output Total 250 ml Balance 770 ml Laboratory Data 24H LABS Laboratory Tests 2 12/13/16 05:20: White Blood Count 3.8L, Red Blood Count 3.73L, Hemoglobin 11.6L, Hematocrit 35.6L, Mean Corpuscular Volume 95.4, Mean Corpuscular Hemoglobin 31.1, Mean Corpuscular Hemoglobin Concent 32.6, Red Cell Distribution Width 14.3, Platelet Count 290, Neutrophils (%) (Auto) 61.9, Lymphocytes (%) (Auto) 29.9, Monocytes ( %) (Auto) 6.0H, Eosinophils (%) (Auto) 0.2, Basophils (%) (Auto) 0.4, Neutrophils # (Auto) 2.4, Lymphocytes # (Auto) 1.2L, Monocytes # (Auto) 0.2, Eosinophils # (Auto) 0.0, Basophils # (Auto) 0.0, Large Unclassified Cells % 1.6 , Large Unclassified Cells # 0.1, Anion Gap 6L, Glomerular Filtration Rate > 60.0, Blood Urea Nitrogen 13, Creatinine 0.49L, Sodium Level 139, Potassium Level 4.1, Chloride Level 105, Carbon Dioxide Level 28, Calcium Level 8.9, Magnesium Level 2.0 CBC/BMP Laboratory Tests 12/13/16 05:20 Red Blood Count 3.73 L, Mean Corpuscular Volume 95.4, Mean Corpuscular Hemoglobin 31.1, Mean Corpuscular Hemoglobin Concent 32.6, Red Cell Distribution Width 14.3, Neutrophils (%) (Auto) 61.9, Lymphocytes (%) (Auto) 29.9, Monocytes (%) (Auto) 6.0 H, Eosinophils (%) (Auto) 0.2, Basophils (%) ( Auto) 0.4, Neutrophils # (Auto) 2.4, Lymphocytes # (Auto) 1.2 L, Monocytes # ( Auto) 0.2, Eosinophils # (Auto) 0.0, Basophils # (Auto) 0.0, Calcium Level 8.9 SALLY MARAVILLA MD Dec 13, 2016 12:52
[2016-12-13 14:00] VITALS: BP 134/80
[2016-12-13 18:00] VITALS: BP 124/82
[2016-12-13] MEDS ORDERED: ACETAMINOPHEN TAB 650MG DOSE (2X325MG) PO PRN (20:00)
[2016-12-13] MEDS: MOM 30ML SUSPENSION UDC PO PRN (20:20)
[2016-12-13] MEDS: ATORVASTATIN 20 MG TAB PO SCH (20:20)
[2016-12-13] MEDS: zolPIDEM TARTRATE 5 MG TAB PO SCH (20:21)
[2016-12-13 22:00] VITALS: BP 153/82
[2016-12-14] MEDS: HYDROmorphone HCL 1 MG/ML SYRINGE (J1170) IV PRN ×3 (00:17→08:47)
[2016-12-14 02:00] VITALS: BP 105/63
[2016-12-14] MEDS: NORCO, ANEXSIA 5/325MG TABLET (HYDROcodone/ACETAMINOPHEN) PO PRN ×3 (04:12→19:47)
[2016-12-14 06:00] VITALS: BP 134/74
[2016-12-14 06:12] LABS: BASO % 0.5 % (0.0-1.0); EOS % 0.1 % (0.0-3.0); LARGE UNSTAINED CELL # 0.1 K/mm3 (0.0-0.4); LARGE UNSTAINED CELL % 2.4 % (0.0-4.0); LYMPH # 1.4 K/mm3 (1.5-4.5); MEAN CORPUSCULAR HGB CONC 32.6 g/dl (32.0-36.5); MONO # 0.4 K/mm3 (0.0-0.8); MONO % 9.7 % (0.0-5.0); NEUTROPHILS # 2.5 K/mm3 (1.8-7.7); NEUTROPHILS % 57.3 % (36.0-66.0); PLATELET COUNT, AUTOMATED 283 k/mm3 (150-450); RED CELL DISTRIBUTION WIDTH 14.7 % (11.5-14.5); WHITE BLOOD COUNT 4.4 K/mm3 (4.0-10.0)
[2016-12-14 08:14] LABS: ANION GAP 5 MEQ/L (8-16); BLOOD UREA NITROGEN 16 MG/DL (7-18); CALCIUM LEVEL 8.5 MG/DL (8.8-10.2); CARBON DIOXIDE LEVEL 29 MEQ/L (21-32); CHLORIDE LEVEL 104 MEQ/L (98-107); CREATININE FOR GFR 0.43 MG/DL (0.55-1.02); GLOMERULAR FILTRATION RATE > 60.0 (>39); GLUCOSE, FASTING 113 MG/DL (83-110); MAGNESIUM LEVEL 2.5 MG/DL (1.8-2.4); POTASSIUM SERUM 4.2 MEQ/L (3.5-5.1); SODIUM LEVEL 138 MEQ/L (136-145)
[2016-12-14] MEDS ORDERED: NS 1,000 ML IV SCH (08:45)
[2016-12-14] MEDS: sulfaSALAzine 500 MG TABEC PO SCH ×2 (09:27→20:43)
[2016-12-14] MEDS: NYSTATIN 500,000 U/5 ML SUSP UDC PO SCH ×4 (09:27→20:44)
[2016-12-14] MEDS: methylPREDNISolone INJ 125 MG/2 ML VIAL (J2930) IV SCH (09:27)
[2016-12-14] MEDS: levETIRAcetam **XR** 500 MG TABLET PO SCH ×2 (09:27→20:44)
[2016-12-14] MEDS: CARISOPRODOL 350 MG TAB PO SCH ×2 (09:28→20:44)
[2016-12-14] MEDS: valACYclovir HCL 500 MG TAB PO SCH (09:28)
[2016-12-14] MEDS: AMIODARONE 200 MG TAB (PACERONE) PO SCH (09:28)
[2016-12-14] MEDS: ASPIRIN 81 MG ENTERIC TAB PO SCH (09:28)
[2016-12-14] MEDS: SERTRALINE 100 MG TAB PO SCH ×2 (09:28→20:44)
[2016-12-14] MEDS: DIGOXIN 0.125 MG TAB PO SCH (09:28)
[2016-12-14] MEDS: CARVedilol 6.25 MG TAB PO SCH ×2 (09:28→20:44)
[2016-12-14] MEDS: CLOPIDOGREL 75 MG TAB PO SCH (09:28)
[2016-12-14] MEDS: ENOXAPARIN 30 MG/0.3 ML SYR (J1650) SC SCH (09:29)
[2016-12-14] MEDS ORDERED: GASTROGRAFIN SOLUTION 30ML PO ONE (09:30)
[2016-12-14 10:00] VITALS: BP 115/70
[2016-12-14] MEDS ORDERED: GASTROGRAFIN SOLUTION 30ML (Q9963) PO ONE (10:00)
[2016-12-14 10:03] LABS: ALBUMIN 2.9 GM/DL (3.2-5.2); ALBUMIN/GLOBULIN RATIO 0.73 (1.00-1.93); ALKALINE PHOSPHATASE 91 U/L (45-117); ALT/SGPT 12 U/L (12-78); AST/SGOT 14 U/L (15-37); BILIRUBIN,DIRECT < 0.1 MG/DL (0.0-0.2); BILIRUBIN,TOTAL 0.3 MG/DL (0.2-1.0); TOTAL PROTEIN 6.9 GM/DL (6.4-8.2)
--- NOTE | 2016-12-14 10:26 | IPNPDOC ---
Subjective Date Seen The patient was seen on 12/14/16. Subjective Chief Complaint/HPI The patient is a 71-year-old female admitted with a reason for visit of Seizure, Transient Ischemic Attack. Events since last encounter Patient reports having some abdominal discomfort and pain on exam today. This really seems to be bothering her. Having some anxiety over this. Her previous back pain and chest pain do not seem to be bothering her. Denies any chest pain at this time. Was able to eat breakfast roughly half hour prior to exam. Constitutional: Denies: Chills, Fever Eyes: Denies: Vision change ENT: Denies: Head Aches Skin: Denies: Lesions Pulmonary: Denies: Dyspnea, Cough Cardiovascular: Denies: Chest Pain, Palpitations Gastrointestinal: Reports: Abdominal Pain, Denies: Nausea, Vomiting Genitourinary: Denies: Dysuria, Frequency, Incontinence Hematologic: Denies: Bruising, Bleeding Excessively Neurological: Denies: Numbness Objective Physical Examination General Exam: Positive: Alert, Mild Distress (anxiety, no respiratory distress. ) Eye Exam: Positive: PERRLA, Negative: Sclera icteric ENT Exam: Positive: Mucous membr. moist/pink, Other ENT (edentulous) Neck Exam: Positive: Supple Chest Exam: Positive: Diminished Heart Exam: Positive: Rate Normal, Normal S1, Normal S2, Negative: Murmurs, Rubs Telemetry: Positive: No significant arrhythmia Abdomen Exam: Positive: Normal bowel sounds, Soft, Tenderness (diffuse.) Extremity Exam: Positive: Other (hands are contracted with ulnar deviation) Neuro Exam: Negative: Normal Speech Psych Exam: Positive: Anxiety Assessment /Plan Problems (1) Abdominal pain Status: Acute Problem Text: Patient started having some abdominal pain today. Pain is all over and diffuse. No vomiting. Patient was able to eat breakfast this morning. Ordered some labs results below: Item Value Date Time Lactic Acid Level 1.3 MMOL/L 12/14/16921 Total Bilirubin 0.3 MG/DL 12/14/16921 Direct Bilirubin < 0.1 MG/DL 12/14/16921 Aspartate Amino Transf (AST/SGOT) 14 U/L L 12/14/16921 Alanine Aminotransferase (ALT/SGPT) 12 U/L 12/14/16921 Alkaline Phosphatase 91 U/L 12/14/16921 Total Protein 6.9 GM/DL 12/14/16 Albumin 2.9 GM/DL L 12/14/16 09 Albumin/Globulin Ratio 0.73 L 12/14/16 0922 Lipase 56 U/L L 12/14/[address] abdomen and pelvis with contrast. Gave patient Dilaudid for the pain. Patient is on this as needed for pain. Started patient on IV fluids. Reassess patient as needed. Check results of CT scan. Patient has meds prn for constipation if needed. (2) Chest pain Status: Acute Problem Text: developed chest pain 12/11/16, reproducible, pleuritic, positional no acute ekg changes, transfered to pcu for monitoring based on history cycled troponins negative I discussed with next of kin by phone 12/11/16 Continues 12/12/16 likely arthritic, ct angio negative- started steroids Taper IV steroids 12/14/16 No pain today on exam. Seems to have resolved. Will continue to monitor at this time. (3) TIA (transient ischemic attack) Onset Date: 01/09/2014 Status: Resolved Problem Specific Plan: Consult Specialist, Monitor Clinically Problem Text: Deficits - generalized weakness, dyarthria - resolved upon arrival to ED neuro consultation obtained no MRI 2/2 AICD [id number] Likely related to postictal state (4) Seizure Status: Acute Discussed With: Patient Problem Specific Plan: Consult Specialist, Monitor Clinically Problem Text: Continue keppra PO neuro c/s appreciated EEG showed no seizure activity (5) Rheumatoid arthritis Status: Chronic Problem Specific Plan: Monitor Clinically Problem Text: may benefit from steroid pulse which was started 12/12/16 Taper IV steroids 12/14/16 (6) HTN (hypertension) Status: Chronic (7) CAD (coronary artery disease) Status: Chronic Problem Text: Hx of multiple [place]'s, s/p CABG, ischemic cardiomyopathy. 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 - s/p AICD, receiving amiodarone, digoxin, coreg as per home regimen (10) Protein-calorie malnutrition, severe Problem Text: following furniture dipper recommendations Plan/VTE VTE Prophylaxis Ordered?: Yes (lovenox) VS, I&O, 24H, Chandrabone Vital Signs/I&O Vital Signs Date Time Temp Pulse Resp B/P (MAP) Pulse Ox O2 Delivery O2 Flow Rate FiO2 12/14/16 09:28 72 12/14/16 09:28 134/74 12/14/16 08:57 17 12/14/16 06:25 Room Air 12/14/16 06:00 96.4 93 12/08/16 00:00 3.0 I&O- Last 24 Hours up to 6 AM 12/14/16 06:00 Intake Total 1560 ml Output Total 200 ml Balance 1360 ml Laboratory Data 24H LABS Laboratory Tests 2 12/14/16 05:54: White Blood Count 4.4, Red Blood Count 3.54L, Hemoglobin 11.0L, Hematocrit 33.7L , Mean Corpuscular Volume 95.0, Mean Corpuscular Hemoglobin 31.0, Mean Corpuscular Hemoglobin Concent 32.6, Red Cell Distribution Width 14.7H, Platelet Count 283, Neutrophils (%) (Auto) 57.3, Lymphocytes (%) (Auto) 30.0, Monocytes (%) (Auto) 9.7H, Eosinophils (%) (Auto) 0.1, Basophils (%) (Auto) 0.5 , Neutrophils # (Auto) 2.5, Lymphocytes # (Auto) 1.4L, Monocytes # (Auto) 0.4, Eosinophils # (Auto) 0.0, Basophils # (Auto) 0.0, Large Unclassified Cells % 2.4 , Large Unclassified Cells # 0.1, Anion Gap 5L, Glomerular Filtration Rate > 60.0, Blood Urea Nitrogen 16, Creatinine 0.43L, Sodium Level 138, Potassium Level 4.2, Chloride Level 104, Carbon Dioxide Level 29, Calcium Level 8.5L, Magnesium Level 2.5H 12/14/16 09:22: Lactic Acid Level 1.3, Aspartate Amino Transf (AST/SGOT) 14L, Alanine Aminotransferase (ALT/SGPT) 12, Alkaline Phosphatase 91, Total Bilirubin 0.3, Direct Bilirubin < 0.1, Total Protein 6.9, Albumin 2.9L, Albumin/Globulin Ratio 0.73L, Lipase 56L CBC/BMP Laboratory Tests 6/24/17 05:54 Red Blood Count 3.54 L, Mean Corpuscular Volume 95.0, Mean Corpuscular Hemoglobin 31.0, Mean Corpuscular Hemoglobin Concent 32.6, Red Cell Distribution Width 14.7 H, Neutrophils (%) (Auto) 57.3, Lymphocytes (%) (Auto) 30.0, Monocytes (%) (Auto) 9.7 H, Eosinophils (%) (Auto) 0.1, Basophils (%) ( Auto) 0.5, Neutrophils # (Auto) 2.5, Lymphocytes # (Auto) 1.4 L, Monocytes # ( Auto) 0.4, Eosinophils # (Auto) 0.0, Basophils # (Auto) 0.0, Calcium Level 8.5 L GME ATTESTATION GME ATTESTATION I have both independently examined this patient as well as reviewed the dictated note. I have discussed in detail with the resident the findings and plan of treatment as documented in the residents note. I will continue to follow the patient and offer further guidance to the patients care as necessary during this hospital stay. KANE PERDOMO DO Dec 14, 2016 10:26 SALLY MARAVILLA MD Jan 13, 2017 15:48
[2016-12-14] MEDS ORDERED: ISOVUE-370 76% 100ML VIAL (Q9967) As Ordered ONE (10:56)
--- NOTE | 2016-12-14 13:36 | REP ---
CT ABDOMEN PELVIS WITH IV AND ORAL CONTRAST: 12/14/2016. COMPARISON: CT 12/01/2015. CLINICAL HISTORY: Abdominal pain. TECHNIQUE: The patient received oral Gastrografin mixture 10 mL in 290 mL of flavored water for two doses per our bowel contrast protocol. Scanning through the abdomen pelvis after bolus of 95 mL of Isovue. 370 is performed with coronal and sagittal soft tissue reconstructions. FINDINGS: CT ABDOMEN: The lung bases show minor fibrotic and dependent atelectatic change without infiltrate or effusion. There is left atrial ventricular enlargement but no pericardial thickening or effusion. Sternotomy wires are noted. There is no hepatosplenomegaly, focal hepatic or splenic lesion nor intrahepatic biliary dilatation. The gallbladder shows no calcified stone or mass. Stomach shows no hiatal hernia and is filled with retained contrast and some fluid. Abdominal aorta shows some ectasia and atherosclerotic calcifications but no aneurysm or dissection. Takeoff of the celiac axis and SMA normal. There is some atherosclerotic calcifications at the renal artery takeoff on the left with mild stenosis. I do not see this finding on the right. Kidneys show function without obstruction, mass or stone. No atrophy. No perinephric fluid. No periaortic or other retroperitoneal pathologic sized lymphadenopathy. Pancreas shows no mass, ductal dilatation or adjacent inflammatory change. No fluid collections or peripancreatic adenopathy. I see no fluid in the peroneal gutters. There is a moderate retained stool in the colon including the right transverse and left segments. Oral contrast and small bowel loops without dilatation or inflammatory changes in the mesentery. No wall thickening. There is no ventral hernia in the abdominal wall. Bone windows show grade 4 compression fracture of L1 unchanged from the CT scan 12/07/2015. No new compression fractures with grade 1 superior endplate compression of the T9 vertebral body again seen. CT PELVIS: SI joints, sacrum, iliac bones without fracture or focal lesion. Hips symmetric with narrowing of the joint spaces but no evidence for AVN or destruction. Pubic rami and symphysis pubis intact. Bladder only partially filled. There is no ureteral dilatation or ureteral stone in the abdomen or pelvis. No bladder or calculi. Multiple pelvic phleboliths are seen. Uterus absent and the vaginal cuff intact. No adnexal mass. Small bowel loops intact. There is moderate constipation with stool in the rectosigmoid. Normal appendix inferior to the cecum. No ventral or inguinal hernia nor pathologic inguinal adenopathy. IMPRESSION: 1. Mild to moderate constipation noted without signs of colitis, diverticulitis, stricture or mass. 2. No inflammatory changes about the cecum with a normal appendix. 3. No renal, ureteral or bladder stone. Small bowel loops unremarkable. No ascites, adenopathy or free air/perforation. 4. Gallbladder, solid organs in the upper abdomen all intact. 5. Grade 4 compression fracture of the L1 vertebral body unchanged from last year, grade 1 superior endplate compression of T9, also unchanged. No new finding in the bones. Signed by Shamar Jimenez MD 12/14/2016 07:58 P
[2016-12-14 14:00] VITALS: BP 129/69
[2016-12-14] MEDS: MOM 30ML SUSPENSION UDC PO PRN (17:43)
[2016-12-14 18:00] VITALS: BP 122/74
[2016-12-14] MEDS: zolPIDEM TARTRATE 5 MG TAB PO SCH (20:44)
[2016-12-14] MEDS: ATORVASTATIN 20 MG TAB PO SCH (20:44)
[2016-12-14 22:00] VITALS: BP 121/66
[2016-12-15 02:00] VITALS: BP 108/65
[2016-12-15 06:00] VITALS: BP 122/77
[2016-12-15] MEDS: NORCO, ANEXSIA 5/325MG TABLET (HYDROcodone/ACETAMINOPHEN) PO PRN ×3 (06:12→18:48)
[2016-12-15] MEDS: sulfaSALAzine 500 MG TABEC PO SCH ×2 (08:31→20:57)
[2016-12-15] MEDS: NYSTATIN 500,000 U/5 ML SUSP UDC PO SCH ×4 (08:31→21:00)
[2016-12-15] MEDS: methylPREDNISolone INJ 125 MG/2 ML VIAL (J2930) IV SCH (08:31)
[2016-12-15] MEDS: SERTRALINE 100 MG TAB PO SCH ×2 (08:32→20:57)
[2016-12-15] MEDS: CARVedilol 6.25 MG TAB PO SCH ×2 (08:32→20:57)
[2016-12-15] MEDS: CLOPIDOGREL 75 MG TAB PO SCH (08:32)
[2016-12-15] MEDS: levETIRAcetam **XR** 500 MG TABLET PO SCH ×2 (08:32→20:57)
[2016-12-15] MEDS: ASPIRIN 81 MG ENTERIC TAB PO SCH (08:32)
[2016-12-15] MEDS: CARISOPRODOL 350 MG TAB PO SCH ×2 (08:32→20:57)
[2016-12-15] MEDS: DIGOXIN 0.125 MG TAB PO SCH (08:33)
[2016-12-15] MEDS: AMIODARONE 200 MG TAB (PACERONE) PO SCH (08:33)
[2016-12-15] MEDS: ENOXAPARIN 30 MG/0.3 ML SYR (J1650) SC SCH (08:33)
[2016-12-15 10:00] VITALS: BP 153/67
[2016-12-15] MEDS: valACYclovir HCL 500 MG TAB PO SCH (11:49)
--- NOTE | 2016-12-15 12:58 | IPNPDOC ---
Subjective Date Seen The patient was seen on 12/15/16. Subjective Chief Complaint/HPI The patient is a 71-year-old female admitted with a reason for visit of Seizure, Transient Ischemic Attack. Events since last encounter Not complaining of pain today, Tolerating a diet, wishes to go home, still requiring 24 hour / day home care level of attention Constitutional: Denies: Chills, Fever Pulmonary: Denies: Dyspnea, Cough Cardiovascular: Denies: Chest Pain, Palpitations Gastrointestinal: Denies: Nausea, Vomiting, Abdominal Pain Objective Physical Examination General Exam: Positive: Alert, Cooperative, No Acute Distress Eye Exam: Negative: Sclera icteric ENT Exam: Positive: Mucous membr. moist/pink, Other ENT (edentulous) Neck Exam: Positive: Supple Chest Exam: Positive: Diminished Heart Exam: Positive: Rate Normal, Normal S1, Normal S2 Abdomen Exam: Positive: Normal bowel sounds, Soft, Negative: Tenderness Extremity Exam: Positive: Other (hands are contracted with ulnar deviation) Neuro Exam: Negative: Normal Speech Psych Exam: Positive: Anxiety Assessment /Plan Problems (1) Abdominal pain Status: Acute Problem Text: Abd pain resolved with BM feeling much better today no acute ct finding yesterday (2) Chest pain Status: Acute Problem Text: developed chest pain 12/11/16, reproducible, pleuritic, positional no acute ekg changes, transfered to pcu for monitoring based on history cycled troponins negative I discussed with next of kin by phone 12/11/16 Continues 12/12/16 likely arthritic, ct angio negative- started steroids Taper steroids again No pain today on exam. Seems to have resolved. Will continue to monitor at this time. (3) TIA (transient ischemic attack) Onset Date: 01/09/2014 Status: Resolved Problem Specific Plan: Consult Specialist, Monitor Clinically Problem Text: Deficits - generalized weakness, dyarthria - resolved upon arrival to ED neuro consultation obtained no MRI 2/2 AICD [id number] Likely related to postictal state (4) Seizure Status: Acute Discussed With: Patient Problem Specific Plan: Consult Specialist, Monitor Clinically Problem Text: Continue keppra PO neuro c/s appreciated EEG showed no seizure activity (5) Rheumatoid arthritis Status: Chronic Problem Specific Plan: Monitor Clinically Problem Text: may benefit from steroid pulse which was started 12/12/16 Taper steroids 12/15/16 (6) HTN (hypertension) Status: Chronic (7) CAD (coronary artery disease) Status: Chronic Problem Text: Hx of multiple [place]'s, s/p CABG, ischemic cardiomyopathy. 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 - s/p AICD, receiving amiodarone, digoxin, coreg as per home regimen (10) Protein-calorie malnutrition, severe Problem Text: following chemist biological recommendations Plan/VTE VTE Prophylaxis Ordered?: Yes (lovenox) VS, I&O, 24H, Fishbone Vital Signs/I&O Vital Signs Date Time Temp Pulse Resp B/P (MAP) Pulse Ox O2 Delivery O2 Flow Rate FiO2 12/15/16 12:42 16 12/15/16 10:00 99.3 60 153/67 (95) 93 Room Air I&O- Last 24 Hours up to 6 AM 12/15/16 05:59 Intake Total 1960 ml Output Total 0 ml Balance 1960 ml SALLY MARAVILLA MD Dec 15, 2016 12:58
[2016-12-15 13:19] LABS: MEAN CORPUSCULAR HEMOGLOBIN 31.2 pg (27.0-33.0); MEAN CORPUSCULAR HGB CONC 31.7 g/dl (32.0-36.5); MEAN CORPUSCULAR VOLUME 98.6 fl (80.0-96.0); RED CELL DISTRIBUTION WIDTH 14.5 % (11.5-14.5)
[2016-12-15] MEDS: LORazepam 0.5 MG TAB PO PRN (13:35)
[2016-12-15 13:50] LABS: ANION GAP 6 MEQ/L (8-16); BLOOD UREA NITROGEN 12 MG/DL (7-18); CALCIUM LEVEL 8.2 MG/DL (8.8-10.2); CARBON DIOXIDE LEVEL 28 MEQ/L (21-32); CHLORIDE LEVEL 108 MEQ/L (98-107); CREATININE FOR GFR 0.54 MG/DL (0.55-1.02); GLOMERULAR FILTRATION RATE > 60.0 (>39); GLUCOSE, FASTING 164 MG/DL (83-110); POTASSIUM SERUM 4.1 MEQ/L (3.5-5.1); SODIUM LEVEL 142 MEQ/L (136-145)
[2016-12-15 14:00] VITALS: BP 118/73
[2016-12-15 18:00] VITALS: BP 124/72
[2016-12-15] MEDS: zolPIDEM TARTRATE 5 MG TAB PO SCH (20:57)
[2016-12-15] MEDS: ATORVASTATIN 20 MG TAB PO SCH (20:57)
[2016-12-15 22:00] VITALS: BP 123/78
[2016-12-16 02:00] VITALS: BP 123/71
[2016-12-16 06:00] VITALS: BP 127/79
[2016-12-16 06:34] LABS: MEAN CORPUSCULAR HEMOGLOBIN 31.3 pg (27.0-33.0); MEAN CORPUSCULAR HGB CONC 31.9 g/dl (32.0-36.5); RED CELL DISTRIBUTION WIDTH 14.9 % (11.5-14.5); WHITE BLOOD COUNT 4.8 K/mm3 (4.0-10.0)
[2016-12-16 06:43] LABS: ANION GAP 2 MEQ/L (8-16); BLOOD UREA NITROGEN 14 MG/DL (7-18); CALCIUM LEVEL 8.1 MG/DL (8.8-10.2); CARBON DIOXIDE LEVEL 31 MEQ/L (21-32); CHLORIDE LEVEL 107 MEQ/L (98-107); CREATININE FOR GFR 0.44 MG/DL (0.55-1.02); GLOMERULAR FILTRATION RATE > 60.0 (>39); GLUCOSE, FASTING 95 MG/DL (83-110); SODIUM LEVEL 140 MEQ/L (136-145)
[2016-12-16] MEDS: levETIRAcetam **XR** 500 MG TABLET PO SCH ×2 (08:18→20:58)
[2016-12-16] MEDS: sulfaSALAzine 500 MG TABEC PO SCH ×2 (08:18→21:01)
[2016-12-16] MEDS: CARVedilol 6.25 MG TAB PO SCH ×2 (08:20→21:00)
[2016-12-16] MEDS: valACYclovir HCL 500 MG TAB PO SCH (08:20)
[2016-12-16] MEDS: CARISOPRODOL 350 MG TAB PO SCH ×2 (08:20→20:57)
[2016-12-16] MEDS: AMIODARONE 200 MG TAB (PACERONE) PO SCH (08:20)
[2016-12-16] MEDS: CLOPIDOGREL 75 MG TAB PO SCH (08:20)
[2016-12-16] MEDS: ASPIRIN 81 MG ENTERIC TAB PO SCH (08:21)
[2016-12-16] MEDS: DIGOXIN 0.125 MG TAB PO SCH (08:21)
[2016-12-16] MEDS: NYSTATIN 500,000 U/5 ML SUSP UDC PO SCH ×4 (08:21→21:01)
[2016-12-16] MEDS: SERTRALINE 100 MG TAB PO SCH ×2 (08:21→20:57)
[2016-12-16] MEDS: NORCO, ANEXSIA 5/325MG TABLET (HYDROcodone/ACETAMINOPHEN) PO PRN (08:21)
[2016-12-16] MEDS: ENOXAPARIN 30 MG/0.3 ML SYR (J1650) SC SCH (08:22)
[2016-12-16] MEDS: LORazepam 0.5 MG TAB PO PRN ×2 (09:52→20:58)
[2016-12-16 10:00] VITALS: BP 164/86
[2016-12-16] MEDS: oxyCODONE 10 MG CR TAB PO SCH ×2 (12:09→20:58)
[2016-12-16] MEDS: HYDROmorphone 2 MG TAB PO PRN ×2 (12:10→16:26)
[2016-12-16 14:00] VITALS: BP 116/68
--- NOTE | 2016-12-16 17:10 | IPNPDOC ---
Subjective Date Seen The patient was seen on 12/16/16. Subjective Chief Complaint/HPI The patient is a 71-year-old female admitted with a reason for visit of Seizure, Transient Ischemic Attack. Events since last encounter Feeling anxious, says anxiety makes her pain worse, chest pain, pleuritic, not short of breath Constitutional: Denies: Chills, Fever Pulmonary: Denies: Dyspnea, Cough Cardiovascular: Reports: Chest Pain, Denies: Palpitations Gastrointestinal: Denies: Nausea, Vomiting, Abdominal Pain Objective Physical Examination General Exam: Positive: Alert, Cooperative, No Acute Distress Eye Exam: Negative: Sclera icteric ENT Exam: Positive: Mucous membr. moist/pink, Other ENT (edentulous) Neck Exam: Positive: Supple Chest Exam: Positive: Diminished, Negative: Rales, Rhonchi, Wheezing Heart Exam: Positive: Rate Normal, Normal S1, Normal S2 Abdomen Exam: Positive: Normal bowel sounds, Soft, Negative: Tenderness Extremity Exam: Positive: Other (hands are contracted with ulnar deviation) Neuro Exam: Negative: Normal Speech Psych Exam: Positive: Anxiety Assessment /Plan Problems (1) Abdominal pain Status: Acute Problem Text: Abd pain resolved with BM no acute ct finding (2) Chest pain Status: Acute Problem Text: developed chest pain 12/11/16, reproducible, pleuritic, positional no acute ekg changes, transfered to pcu for monitoring based on history cycled troponins negative I discussed with next of kin by phone 12/11/16 Continues 12/12/16 likely arthritic, ct angio negative- started steroids Taper steroids again Pain today (12/16/16) on exam. Seems improved from several days ago. Will continue to monitor at this time. (3) TIA (transient ischemic attack) Onset Date: 01/09/2014 Status: Resolved Problem Specific Plan: Consult Specialist, Monitor Clinically Problem Text: Deficits - generalized weakness, dyarthria - resolved upon arrival to ED neuro consultation obtained no MRI 2/2 AICD [id number]/plavix Likely related to postictal state (4) Seizure Status: Acute Discussed With: Patient Problem Specific Plan: Consult Specialist, Monitor Clinically Problem Text: Continue keppra PO neuro c/s appreciated EEG showed no seizure activity (5) Rheumatoid arthritis Status: Chronic Problem Specific Plan: Monitor Clinically Problem Text: may benefit from steroid pulse which was started 12/12/16 Taper steroids 12/15/16 I discussed with patient and hcp at bedside- patient's advanced disease make discharge home complicated. She has likely needed 24/7 care at home for some time as she has fallen at night, soiled herself, and needed to wait for assistance the next day to resolve the situation. Patient understands this, but likes living in her apartment independently. This is no longer possible (6) HTN (hypertension) Status: Chronic (7) CAD (coronary artery disease) Status: Chronic Problem Text: Hx of multiple [place]'s, s/p CABG, ischemic cardiomyopathy. 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 - s/p AICD, receiving amiodarone, digoxin, coreg as per home regimen (10) Protein-calorie malnutrition, severe Problem Text: following bicycle repairer recommendations Plan/VTE VTE Prophylaxis Ordered?: Yes (lovenox) VS, I&O, 24H, Fishbone Vital Signs/I&O Vital Signs Date Time Temp Pulse Resp B/P (MAP) Pulse Ox O2 Delivery O2 Flow Rate FiO2 12/16/16 16:26 18 12/16/16 10:00 98.6 72 164/86 (112) 95 Nasal Cannula 1.0 I&O- Last 24 Hours up to 6 AM 12/16/16 06:00 Intake Total 1320 ml Output Total 0 ml Balance 1320 ml Laboratory Data 24H LABS Laboratory Tests 2 12/16/16 06:15: Anion Gap 2L, Glomerular Filtration Rate > 60.0, Blood Urea Nitrogen 14, Creatinine 0.44L, Sodium Level 140, Potassium Level 4.0, Chloride Level 107, Carbon Dioxide Level 31, Calcium Level 8.1L CBC/BMP Laboratory Tests 12/16/16 06:15 Red Blood Count 3.27 L, Mean Corpuscular Volume 98.0 H, Mean Corpuscular Hemoglobin 31.3, Mean Corpuscular Hemoglobin Concent 31.9 L, Red Cell Distribution Width 14.9 H, Calcium Level 8.1 L SALLY MARAVILLA MD Dec 16, 2016 17:10
[2016-12-16] MEDS: zolPIDEM TARTRATE 5 MG TAB PO SCH (20:57)
[2016-12-16] MEDS: ATORVASTATIN 20 MG TAB PO SCH (20:57)
[2016-12-16 22:00] VITALS: BP 130/80
[2016-12-17 02:00] VITALS: BP 104/66
[2016-12-17] MEDS: HYDROmorphone 2 MG TAB PO PRN ×2 (03:52→12:54)
[2016-12-17 06:00] VITALS: BP 114/68
[2016-12-17 07:17] LABS: MEAN CORPUSCULAR HEMOGLOBIN 31.5 pg (27.0-33.0); MEAN CORPUSCULAR HGB CONC 32.1 g/dl (32.0-36.5); MEAN CORPUSCULAR VOLUME 98.4 fl (80.0-96.0); RED CELL DISTRIBUTION WIDTH 14.9 % (11.5-14.5); WHITE BLOOD COUNT 4.9 K/mm3 (4.0-10.0)
[2016-12-17 07:30] LABS: ANION GAP 4 MEQ/L (8-16); BLOOD UREA NITROGEN 12 MG/DL (7-18); CALCIUM LEVEL 8.4 MG/DL (8.8-10.2); CARBON DIOXIDE LEVEL 31 MEQ/L (21-32); CHLORIDE LEVEL 105 MEQ/L (98-107); CREATININE FOR GFR 0.49 MG/DL (0.55-1.02); GLOMERULAR FILTRATION RATE > 60.0 (>39); GLUCOSE, FASTING 81 MG/DL (83-110); POTASSIUM SERUM 4.1 MEQ/L (3.5-5.1); SODIUM LEVEL 140 MEQ/L (136-145)
[2016-12-17] MEDS: valACYclovir HCL 500 MG TAB PO SCH (08:32)
[2016-12-17] MEDS: CARISOPRODOL 350 MG TAB PO SCH ×2 (08:32→22:15)
[2016-12-17] MEDS: SERTRALINE 100 MG TAB PO SCH ×2 (08:33→22:16)
[2016-12-17] MEDS: ENOXAPARIN 30 MG/0.3 ML SYR (J1650) SC SCH (08:33)
[2016-12-17] MEDS: CLOPIDOGREL 75 MG TAB PO SCH (08:36)
[2016-12-17] MEDS: DIGOXIN 0.125 MG TAB PO SCH (08:36)
[2016-12-17] MEDS: AMIODARONE 200 MG TAB (PACERONE) PO SCH (08:36)
[2016-12-17] MEDS: ASPIRIN 81 MG ENTERIC TAB PO SCH (08:36)
[2016-12-17] MEDS: CARVedilol 6.25 MG TAB PO SCH ×2 (08:36→22:16)
[2016-12-17] MEDS: NYSTATIN 500,000 U/5 ML SUSP UDC PO SCH ×4 (08:36→22:15)
[2016-12-17] MEDS: sulfaSALAzine 500 MG TABEC PO SCH ×2 (08:37→23:16)
[2016-12-17] MEDS: oxyCODONE 10 MG CR TAB PO SCH ×2 (08:37→22:15)
[2016-12-17] MEDS: levETIRAcetam **XR** 500 MG TABLET PO SCH ×2 (08:37→23:16)
[2016-12-17] MEDS: LORazepam 0.5 MG TAB PO PRN ×2 (08:44→22:15)
[2016-12-17 10:00] VITALS: BP 104/57
[2016-12-17] MEDS ORDERED: HEPARIN SOD (PORCINE) 5000 UNITS/ML VIAL SQ SCH (12:45)
--- NOTE | 2016-12-17 12:58 | IPNPDOC ---
Date Seen The patient was seen on 12/17/16. Progress Note SUBJECTIVE: Patient continues to complain of pain despite her adjusted pain medication regimen. She describes it diffusely in all of her joints her back her hands or knees or feet she admits that she has been this way for very long time and previously only improved with Humira OBJECTIVE PHYSICAL EXAMINATION: VITAL SIGNS: Please see below. GENERAL: Frail elderly cachectic female lying flat in bed in no acute distress HEENT:She has moist mucous membranes she has pallor CARDIOVASCULAR: S1-S2 regular. RESPIRATORY: Clear To auscultation. ABDOMINAL: Soft nontender nondistended EXTREMITIES: Ulnar deviation of the bilateral distal upper extremities consistent with advanced rheumatoid arthritis LABORATORY DATA: Please see below. MICROBIOLOGY: Please see below. IMAGING: No new imaging Echocardiogram: Normal left ventricular size and wall thickness with localized antral apical marked hypo akinesis in keeping with known prior injury. Mild impairment of global resting systolic function. Normal left atrial size with Doppler evidence of an impairment of LV diastolic function but current estimated mean left atrial pressure upper limits of normal. Normal right heart chamber sizes and contraction with mild pulmonary hypertension. Normal IVC size and collapse against an elevated central venous pressure. Slight mitral annular thickening without functional valvular abnormality. Pacing lead (ICD lead) could be visualized traversing right heart structures. DVT prophylaxis ordered?: Lovenox ASSESSMENT AND PLAN: This is a 71-year-old female with a seizure. PROBLEMS: (1) Abdominal pain Resolved, secondary to constipation (2) Chest pain [place] to be related to arthritis in etiology she was in the PCU her troponins were trended she does not complain of chest pain today. (3) TIA (transient ischemic attack) Neurology consult appreciated she may have had a TIA but it seems more likely that she was post ictal following a seizure she has been started on ASA81/plavix (4) Seizure Once again neurology's help is greatly appreciated she is to continue keppra PO , EEG showed no seizure activity (5) Rheumatoid arthritis We'll steroids earlier in her stay, however her symptoms are quite significant at this time she is receiving IV Dilaudid in the past her pain and arthritis was controlled with HUmira I think she will be best served by seeing her gas appliance repairer and follow-up chest appointment for Friday. She adamantly refuses placement however I suspect that given she is essentially bedridden and does not have 24 7 care at home she will require this I place a pain management consult she is on OxyContin IV Dilaudid Zoloft sulfasalazine Soma and Maribel and her pain is still not controlled I wonder she would not be better served by alternative DMARD's however she has had long-standing gas appliance repairer was likely tried many different medications before Biologics (6) HTN (hypertension) Continue with Coreg (7) CAD (coronary artery disease) Status: Chronic Problem Text: Hx of multiple [place]'s, s/p CABG, ischemic cardiomyopathy. 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 (11)anxiety Continue with Ambien daily at bedtime Zoloft and Ativan when necessary DISPOSITION: Pending pain control and placement. VS, I&O, 24H, Fishbone Vital Signs/I&O Vital Signs Date Time Temp Pulse Resp B/P (MAP) Pulse Ox O2 Delivery O2 Flow Rate FiO2 12/17/16 10:00 98.3 80 16 104/57 (73) 95 Nasal Cannula 1.0 I&O- Last 24 Hours up to 6 AM 12/17/16 05:59 Intake Total 540 ml Output Total 100 ml Balance 440 ml Laboratory Data 24H LABS Laboratory Tests 2 12/17/16 06:52: Anion Gap 4L, Glomerular Filtration Rate > 60.0, Blood Urea Nitrogen 12, Creatinine 0.49L, Sodium Level 140, Potassium Level 4.1, Chloride Level 105, Carbon Dioxide Level 31, Calcium Level 8.4L CBC/BMP Laboratory Tests 12/17/16 06:52 Red Blood Count 3.48 L, Mean Corpuscular Volume 98.4 H, Mean Corpuscular Hemoglobin 31.5, Mean Corpuscular Hemoglobin Concent 32.1, Red Cell Distribution Width 14.9 H, Calcium Level 8.4 L BENNIE MCCAIN MD Dec 17, 2016 12:58
[2016-12-17 14:00] VITALS: BP 105/59
[2016-12-17] MEDS: NORCO, ANEXSIA 5/325MG TABLET (HYDROcodone/ACETAMINOPHEN) PO PRN (16:04)
--- NOTE | 2016-12-17 17:38 | CR ---
DATE OF CONSULTATION: 12/17/2016 CHIEF COMPLAINT: 1. Hand pain. 2. Generalized back pain. REFERRING PHYSICIAN: Ingris Butcher MD HISTORY OF PRESENT ILLNESS: Carlene is a frail 71-year-old female with history of multiple comorbidities who was admitted on 12/07/2016, with possible seizure like activity. Also being considered a possible transient ischemic attack (TIA). The patient is resting in bed upon entry to room and is alert and oriented. Appears in no acute distress. Reports that her hands and her back are the worst areas of pain and is rating her pain level as a 10/10. The patient uses hydrocodone at home prescribed by primary care and uses four tablets a day. The patient states her pain level and areas of pain are unchanged from 6 months ago. She has a history of rheumatoid arthritis. Nurses are reporting that she is getting Dilaudid 1 mg every 4 hours as needed and hydrocodone and the patient continues to rate her pain as a 10/10. Patient states that she feels Dilaudid is somewhat helpful. Denies valentina bowel or bladder incontinence. Does wear Depends as she is immobile and wheelchair dependent. Patient reports that she has lost over 20 pounds in the past 2 months. Denies recent fever or illness. PAST MEDICAL HISTORY: 1. Paroxysmal supraventricular tachycardia. 2. Atrial fibrillation. 3. Coronary artery disease. 4. Cardiomyopathy. 5. History of anterior wall myocardial infarction ([place]), multiple MIs, silent 2005, August to September 2006, September 2006 times two, status post multiple cardiac catheterizations and triple bypass. 6. CVA affecting speech in October 2006. 7. History of concussion in 2004. 8. History of severe rheumatoid arthritis. 9. Hypertension. 10. Syncope. 11. Orthostatic hypotension. 12. Osteoarthritis of right knee. 13. Ruptured Laws's cyst right knee 1999. 14. Left broken wrist 2004. 15. History of three miscarriages in . PAST SURGICAL HISTORY: Implantable ICD/defibrillator December 2007, coronary artery bypass graft (CABG), multiple cardiac catheterizations, left total knee arthroplasty in August 2003, hemorrhoidectomy 1993, hysterectomy 1981. ALLERGIES: TIZANIDINE - anaphylaxis. PREDNISONE - heart races. LISINOPRIL - dizziness, vertigo and cough. SOCIAL HISTORY: Patient lives alone. She does report that she has family coming in and checking on her and helping her with her medications. Also a public health nurse comes in. She does not smoke or use alcohol. No illicit drugs. FAMILY HISTORY: Noncontributory. REVIEW OF SYSTEMS: Constitutional: Patient denies recent fever or illness. Reports significant weight loss over the past 2-3 months. Cardiac: Denies chest pain or shortness of breath today. History of multiple MIs and extensive coronary history. Respiratory: Denies shortness of breath. Denies cough. Gastrointestinal (GI): Reports normal function of her bowels. Reports no bowel incontinence. Genitourinary (): Reports urinary leakage but for the most part she is able to get to the bathroom and have the urge to urinate. Musculoskeletal: Chronic generalized joint pain of rheumatoid arthritis. Neurologic: There are some reports of seizure activity. Endocrine: Denies diabetes. PHYSICAL EXAMINATION: Awake, alert, lying in bed. Appears comfortable. VITAL SIGNS: 99.7, 68, 18, blood pressure 105/59, oxygen saturation 96% with oxygen at 1 liter nasal cannula. CARDIAC: S1, S2, normal rate and rhythm. RESPIRATORY: Lung sounds are clear. Respirations nonlabored. ABDOMEN: Cachectic. Soft and nontender. EXTREMITIES: Bilateral upper and lower extremities move freely. Warm to touch. No evidence of redness or swelling. INSPECTION OF SPINE: Nontender with palpation of the entire spine and paraspinal region. Nontender with palpation over the sacroiliac joints bilaterally. Nontender with palpation over hips bilaterally. The patient is able to move freely in bed. DIAGNOSTIC DATA: Abdomen and pelvis CT with and without contrast 12/14/2016 - showing no changes from previous studies. Showing mild to moderate constipation. There is a grade 4 compression fracture of the L1 vertebral body unchanged from last year, grade 1 superior endplate compression of T9 also unchanged. No new finding in the bones. ASSESSMENT: 1. Chronic pain. 2. Rheumatoid arthropathy. PLAN: She may benefit from addition of a small dose of gabapentin 100 mg twice a day. This could be considered to increase to three times daily and gradually escalated as tolerated to possibly 600 mg to 1000 mg daily. I would recommend discontinuing IV Dilaudid. Continue use of hydrocodone as needed. Continue use of OxyContin 10 mg twice a day. This also could be considered to slowly taper up as tolerated to maybe 15 mg twice a day. Thank you for allowing us to participate in the care of your patient. If you have any questions or concerns please do not hesitate to contact me.
[2016-12-17 18:00] VITALS: BP 108/64
[2016-12-17 22:00] VITALS: BP 107/56
[2016-12-17] MEDS: ATORVASTATIN 20 MG TAB PO SCH (22:16)
[2016-12-17] MEDS: zolPIDEM TARTRATE 5 MG TAB PO SCH (22:16)
[2016-12-18 02:00] VITALS: BP 121/68
[2016-12-18] MEDS: NORCO, ANEXSIA 5/325MG TABLET (HYDROcodone/ACETAMINOPHEN) PO PRN ×3 (02:51→20:06)
[2016-12-18 06:00] VITALS: BP 100/56
[2016-12-18 06:33] LABS: MEAN CORPUSCULAR HEMOGLOBIN 31.2 pg (27.0-33.0); MEAN CORPUSCULAR VOLUME 97.7 fl (80.0-96.0); RED CELL DISTRIBUTION WIDTH 14.9 % (11.5-14.5); WHITE BLOOD COUNT 4.1 K/mm3 (4.0-10.0)
[2016-12-18 06:46] LABS: ANION GAP 4 MEQ/L (8-16); BLOOD UREA NITROGEN 13 MG/DL (7-18); CALCIUM LEVEL 8.1 MG/DL (8.8-10.2); CARBON DIOXIDE LEVEL 32 MEQ/L (21-32); CHLORIDE LEVEL 104 MEQ/L (98-107); CREATININE FOR GFR 0.46 MG/DL (0.55-1.02); GLOMERULAR FILTRATION RATE > 60.0 (>39); GLUCOSE, FASTING 85 MG/DL (83-110); POTASSIUM SERUM 4.1 MEQ/L (3.5-5.1); SODIUM LEVEL 140 MEQ/L (136-145)
[2016-12-18] MEDS: valACYclovir HCL 500 MG TAB PO SCH (09:44)
[2016-12-18] MEDS: ASPIRIN 81 MG ENTERIC TAB PO SCH (09:44)
[2016-12-18] MEDS: AMIODARONE 200 MG TAB (PACERONE) PO SCH (09:44)
[2016-12-18] MEDS: NYSTATIN 500,000 U/5 ML SUSP UDC PO SCH ×4 (09:44→21:28)
[2016-12-18] MEDS: GABAPENTIN 100 MG CAP PO SCH ×2 (09:44→21:27)
[2016-12-18] MEDS: sulfaSALAzine 500 MG TABEC PO SCH ×2 (09:44→21:27)
[2016-12-18] MEDS: levETIRAcetam **XR** 500 MG TABLET PO SCH ×2 (09:44→21:27)
[2016-12-18] MEDS: CARVedilol 6.25 MG TAB PO SCH ×2 (09:45→21:28)
[2016-12-18] MEDS: CLOPIDOGREL 75 MG TAB PO SCH (09:45)
[2016-12-18] MEDS: LORazepam 0.5 MG TAB PO PRN (09:45)
[2016-12-18] MEDS: SERTRALINE 100 MG TAB PO SCH ×2 (09:46→21:36)
[2016-12-18] MEDS: CARISOPRODOL 350 MG TAB PO SCH ×2 (09:46→21:31)
[2016-12-18] MEDS: DIGOXIN 0.125 MG TAB PO SCH (09:46)
[2016-12-18] MEDS: ENOXAPARIN 30 MG/0.3 ML SYR (J1650) SC SCH (09:46)
[2016-12-18] MEDS: oxyCODONE 10 MG CR TAB PO SCH ×2 (09:48→21:30)
[2016-12-18 10:00] VITALS: BP 120/65
[2016-12-18 14:00] VITALS: BP 106/67
--- NOTE | 2016-12-18 14:37 | IPN ---
DATE: 12/18/2016 SUBJECTIVE: Ms. Alaniz is a 71-year-old female who was seen and examined at the bedside. The patient today is complaining regarding the pain that is continuous. The patient has been seen by pain management yesterday and the recommendations from pain management were applied; however, she continued to have pain. The patient expressed that her pain is diffuse throughout her body; however, mostly on her hands and lower back. The patient expressed that she has had this pain for a long time. The patient was on Humira before; however, the treatment was stopped, the patient does not know what the reason was. The patient was following with plastic design applier in [place]. OBJECTIVE: VITAL SIGNS: Temperature 98.8, pulse 75, respiratory rate 18, blood pressure 120/64, pulse oximetry 94% on room air. GENERAL APPEARANCE: The patient was lying in bed, cachectic. The patient was awake, alert, and oriented to time, place and person. HEENT: Normocephalic, atraumatic. Pupils are equal and reactive to light. Oral mucosa was moist. HEART: Regular rate and rhythm. Normal S1, S2. ABDOMEN: Soft, nontender. Positive bowel sounds in all quadrants. LUNGS: The patient has clear breath sounds bilaterally. Good air movement. EXTREMITIES: The patient has ulnar deviation bilaterally in both upper extremities. The patient also has tenderness to palpation on her upper and lower back, as well as lower extremities and upper extremities. LABORATORY DATA: White blood cells 4.1, red blood cells 3.32, hemoglobin 10.4, hematocrit 32.4, MCV 97.7, MCH 31.2, MCHC 32, RDW 14.9, platelet count 244. Sodium 140, potassium 4.1, chloride 105, carbon dioxide 32, anion gap 4, BUN 13, creatinine 0.46, GFR more than 60, fasting glucose 85, calcium 8.1. ASSESSMENT AND PLAN: 1. Generalized pain. This is possibly secondary to rheumatoid arthritis. In the past, the patient was treated with Humira, which she believed that it controlled her symptoms well; however, therapy was stopped and the patient believes that it was secondary to her insurance. The patient has an appointment with plastic design applier on Friday. The patient does not have 24/7 care at home, and she is essentially bedridden. Therefore, the patient needs to have either placement or have care at home. Based on pain management recommendations, the patient has been started on gabapentin 100 mg twice a day, also at this time the patient is on oxycodone sulfasalazine, soma, as well as [place]. However, the patient's pain is not controlled. The patient may require alternative disease-modifying antirheumatic drugs (DMARDs); however, as mentioned to the patient, she needs to be followed up with a plastic design applier. 3. Hypertension. At this time, the patient's blood pressure is stable. We will continue the patient on Coreg. 4. History of transient ischemic attack. At this time, the patient is on aspirin 81 mg and Plavix. 5. Seizure. Neurology has been consulted. Based on the recommendations, we will continue the patient on Keppra. EEG did not show any seizure type activities. 6. Coronary artery disease. This is a chronic issue. The patient has a history of multiple myocardial infarctions, status post coronary artery bypass graft (CABG) and ischemic cardiomyopathy. We will continue the patient on Coreg, Lipitor, aspirin and Plavix. 7. History of CVA. This is a chronic issue. We will continue the patient on Plavix, aspirin, and statin. 8. Arrhythmia. At this time, the patient is on amiodarone, digoxin, Coreg, and aspirin. The patient is also status post AICD. 9. Protein calorie malnutrition. We will continue following nutrition recommendations. 10. Anxiety. The patient is on Zoloft and Ativan when necessary for anxiety. 11. Insomnia. The patient is on Ambien mg by mouth at night. 12. Deep vein thrombosis (DVT) prophylaxis. The patient is on Lovenox 30 mg at night daily. My preceptor for this patient encounter was Dr. Butcher. The preceptor was physically present in the building during the encounter and was fully available. As needed, all aspects of the patient interview, examination, medical decision making process, and medical care plan development were reviewed and approved by the preceptor. The preceptor is aware and concurs with the plan as stated in the body of this note and will attest to such by his/her cosignature. GUNJAN
[2016-12-18 18:00] VITALS: BP 111/63
[2016-12-18] MEDS: MOM 30ML SUSPENSION UDC PO PRN (18:18)
[2016-12-18] MEDS: DOCUSATE SODIUM 100 MG CAP PO PRN (18:19)
[2016-12-18 20:30] VITALS: BP 124/67
[2016-12-18] MEDS: zolPIDEM TARTRATE 5 MG TAB PO SCH (21:27)
[2016-12-18] MEDS: ATORVASTATIN 20 MG TAB PO SCH (21:27)
[2016-12-19] VITALS (7 sets, daily range): BP systolic 96–128; BP diastolic 58–69
[2016-12-19] MEDS: LORazepam 0.5 MG TAB PO PRN (03:16)
[2016-12-19] MEDS: NORCO, ANEXSIA 5/325MG TABLET (HYDROcodone/ACETAMINOPHEN) PO PRN ×2 (03:18→13:23)
[2016-12-19 06:06] LABS: MEAN CORPUSCULAR HEMOGLOBIN 31.4 pg (27.0-33.0); MEAN CORPUSCULAR HGB CONC 32.4 g/dl (32.0-36.5); MEAN CORPUSCULAR VOLUME 97.1 fl (80.0-96.0); RED CELL DISTRIBUTION WIDTH 15.2 % (11.5-14.5)
[2016-12-19 06:24] LABS: ANION GAP 4 MEQ/L (8-16); BLOOD UREA NITROGEN 17 MG/DL (7-18); CALCIUM LEVEL 8.5 MG/DL (8.8-10.2); CARBON DIOXIDE LEVEL 32 MEQ/L (21-32); CHLORIDE LEVEL 105 MEQ/L (98-107); CREATININE FOR GFR 0.44 MG/DL (0.55-1.02); GLOMERULAR FILTRATION RATE > 60.0 (>39); GLUCOSE, FASTING 85 MG/DL (83-110); POTASSIUM SERUM 4.1 MEQ/L (3.5-5.1); SODIUM LEVEL 141 MEQ/L (136-145)
[2016-12-19] MEDS: valACYclovir HCL 500 MG TAB PO SCH (09:20)
[2016-12-19] MEDS: NYSTATIN 500,000 U/5 ML SUSP UDC PO SCH ×4 (09:20→20:18)
[2016-12-19] MEDS: ENOXAPARIN 30 MG/0.3 ML SYR (J1650) SC SCH (09:20)
[2016-12-19] MEDS: CARVedilol 6.25 MG TAB PO SCH ×2 (09:21→20:20)
[2016-12-19] MEDS: GABAPENTIN 100 MG CAP PO SCH ×2 (09:21→20:19)
[2016-12-19] MEDS: AMIODARONE 200 MG TAB (PACERONE) PO SCH (09:21)
[2016-12-19] MEDS: oxyCODONE 10 MG CR TAB PO SCH ×2 (09:21→20:20)
[2016-12-19] MEDS: CARISOPRODOL 350 MG TAB PO SCH ×2 (09:21→20:18)
[2016-12-19] MEDS: SERTRALINE 100 MG TAB PO SCH ×2 (09:22→20:18)
[2016-12-19] MEDS: ASPIRIN 81 MG ENTERIC TAB PO SCH (09:22)
[2016-12-19] MEDS: CLOPIDOGREL 75 MG TAB PO SCH (09:23)
[2016-12-19] MEDS: DIGOXIN 0.125 MG TAB PO SCH (09:23)
[2016-12-19] MEDS: levETIRAcetam **XR** 500 MG TABLET PO SCH ×2 (09:26→20:18)
[2016-12-19] MEDS: sulfaSALAzine 500 MG TABEC PO SCH ×2 (09:26→20:18)
[2016-12-19] MEDS: DOCUSATE SODIUM 100 MG CAP PO PRN (13:23)
--- NOTE | 2016-12-19 15:13 | IPN ---
DATE: 12/19/2016 SUBJECTIVE: Ms. Alaniz is a 71-year-old female who was seen and examined at the bedside. The patient expressed that she had no overnight issues. However, the patient continued to have pain. The patient had one episode of bowel movement as well as urination. The patient denies chest pain, orthopnea, or paroxysmal nocturnal dyspnea (PND). The patient denies nausea, vomiting, diarrhea, or constipation as well as palpitations. OBJECTIVE: VITAL SIGNS: Temperature 98.3, pulse 69, respiratory rate 17, blood pressure 128/68, pulse oximetry 94% on room air. Total intake from yesterday 1080 mL, output 0. GENERAL APPEARANCE: The patient was lying in bed, awake, alert and oriented to time, place and person. The patient is cachectic. HEENT: Normocephalic, atraumatic. Pupils are equal and reactive to light. Oral mucosa is moist. HEART: Regular rate and rhythm. Normal S1, S2. ABDOMEN: Soft, nontender. Positive bowel sounds in all quadrants. LUNGS: Clear breath sounds bilaterally. Good air movement. EXTREMITIES: The patient has ulnar deviation bilaterally of her fingers. The patient also has tenderness to palpation of her upper extremities as well as lower extremities. The patient has limited movement of her upper and lower extremities due to pain. LABORATORY DATA: White blood cells 4, red blood cells 3.29, hemoglobin 10.3, hematocrit 31.9, MCV 97.1, MCH 32.4, RDW 15.2, platelet count 233. Sodium 141, potassium 4.1, chloride 105, carbon dioxide 32, anion gap 4, BUN 17, creatinine 0.44, glomerular filtration rate more than 60, fasting glucose 85, calcium 8.5. ASSESSMENT AND PLAN: 1. Generalized pain. This is possibly secondary to rheumatoid arthritis. We will continue the patient with the current medication which includes gabapentin, oxycodone, acetaminophrn, sulfasalazine, Soma as well as [place]. Patient and family services (PFS) has been in contact with the family. There is a possibility that the patient can be discharged tomorrow. The patient has an appointment with rheumatology on Friday. 3. Hypertension. At this time, the patient's blood pressure is stable. We will continue the patient on Coreg. 4. History of transient ischemic attack. The patient is on aspirin and Plavix. 5. Seizure. EEG was negative. We will continue the patient on Keppra. 6. Coronary artery disease. This is a chronic issue. The patient has a history of multiple myocardial infarctions, status post coronary artery bypass graft and ischemic cardiomyopathy. We will continue the patient on Coreg, Lipitor, aspirin and Plavix. 7. History of cerebrovascular accident (CVA). This is a chronic issue. The patient is on Plavix, aspirin, and statin. 8. Arrhythmia. We will continue the patient on amiodarone, digoxin, Coreg, and aspirin. The patient is also status post automatic implantable cardioverter defibrillator (AICD). 9. Protein-calorie malnutrition. This is a chronic issue. 10. Anxiety. We will the patient on Zoloft and Ativan when necessary for anxiety. 11. Insomnia. The patient is on Ambien. 12. Deep vein thrombosis (DVT) prophylaxis. The patient is on Lovenox 30 mg. My preceptor for this patient encounter was Dr. Ingris Butcher. The preceptor was physically present in the building during the encounter and was fully available. As needed, all aspects of the patient interview, examination, medical decision making process, and medical care plan development were reviewed and approved by the preceptor. The preceptor is aware and concurs with the plan as stated in the body of this note and will attest to such by his/her cosignature.
[2016-12-19] MEDS: zolPIDEM TARTRATE 5 MG TAB PO SCH (20:18)
[2016-12-19] MEDS: ATORVASTATIN 20 MG TAB PO SCH (20:19)
[2016-12-20] MEDS: NORCO, ANEXSIA 5/325MG TABLET (HYDROcodone/ACETAMINOPHEN) PO PRN ×2 (01:23→08:10)
[2016-12-20 02:00] VITALS: BP 112/63
[2016-12-20 06:20] VITALS: BP 119/65
[2016-12-20 06:25] LABS: MEAN CORPUSCULAR HEMOGLOBIN 31.5 pg (27.0-33.0); MEAN CORPUSCULAR HGB CONC 32.1 g/dl (32.0-36.5); MEAN CORPUSCULAR VOLUME 98.2 fl (80.0-96.0); RED CELL DISTRIBUTION WIDTH 14.9 % (11.5-14.5); WHITE BLOOD COUNT 4.9 K/mm3 (4.0-10.0)
[2016-12-20 07:30] LABS: ANION GAP 7 MEQ/L (8-16); BLOOD UREA NITROGEN 14 MG/DL (7-18); CALCIUM LEVEL 8.8 MG/DL (8.8-10.2); CARBON DIOXIDE LEVEL 28 MEQ/L (21-32); CHLORIDE LEVEL 106 MEQ/L (98-107); CREATININE FOR GFR 0.49 MG/DL (0.55-1.02); GLOMERULAR FILTRATION RATE > 60.0 (>39); GLUCOSE, FASTING 82 MG/DL (83-110); POTASSIUM SERUM 4.1 MEQ/L (3.5-5.1); SODIUM LEVEL 141 MEQ/L (136-145)
[2016-12-20] MEDS: ENOXAPARIN 30 MG/0.3 ML SYR (J1650) SC SCH (09:45)
[2016-12-20] MEDS: SERTRALINE 100 MG TAB PO SCH (09:45)
[2016-12-20] MEDS: levETIRAcetam **XR** 500 MG TABLET PO SCH (09:45)
[2016-12-20] MEDS: sulfaSALAzine 500 MG TABEC PO SCH (09:46)
[2016-12-20] MEDS: ASPIRIN 81 MG ENTERIC TAB PO SCH (09:47)
[2016-12-20] MEDS: valACYclovir HCL 500 MG TAB PO SCH (09:47)
[2016-12-20] MEDS: GABAPENTIN 100 MG CAP PO SCH (09:47)
[2016-12-20] MEDS: CARISOPRODOL 350 MG TAB PO SCH (09:47)
[2016-12-20] MEDS: CLOPIDOGREL 75 MG TAB PO SCH (09:47)
[2016-12-20] MEDS: oxyCODONE 10 MG CR TAB PO SCH (09:47)
[2016-12-20] MEDS: DIGOXIN 0.125 MG TAB PO SCH (09:50)
[2016-12-20 09:51] VITALS: BP 128/69
[2016-12-20] MEDS: AMIODARONE 200 MG TAB (PACERONE) PO SCH (09:51)
[2016-12-20] MEDS: CARVedilol 6.25 MG TAB PO SCH (09:51)
[2016-12-20] MEDS: NYSTATIN 500,000 U/5 ML SUSP UDC PO SCH ×2 (09:54→13:09)
[2016-12-20 10:00] VITALS: BP 112/65
[2016-12-20] MEDS ORDERED: LEVE500XR PO (10:22)
[2016-12-20] MEDS ORDERED: GABA-279 PO (10:22)
[2016-12-20] MEDS ORDERED: HYDR-3719 PO (10:22)
[2016-12-20] MEDS ORDERED: KEPP1TAB PO (13:28)
[2016-12-20 14:00] VITALS: BP 141/85
--- NOTE | 2016-12-20 15:09 | DSES ---
DATE OF ADMISSION: 12/07/2016 DATE OF DISCHARGE: 12/20/2016 DISCHARGE DIAGNOSIS: Seizure. SECONDARY DIAGNOSES: Possible transient ischemic attack (TIA). Rheumatoid arthritis. Chest pain. Abdominal pain. Hypertension. Coronary artery disease. History of cerebrovascular accident (CVA). Cardiac arrhythmia. Severe protein calorie malnutrition. Anxiety. Constipation. CONSULTATIONS: Laurita Wolfe, TUNNELING MACHINE OPERATOR, pain management. Dr. Antolin Menendez, neurology. HOSPITAL COURSE: The patient is a 71-year-old female who was previously living at home independently who presented for a seizure versus TIA. The patient presented to the hospital by ambulance for possible seizure-like activity and speech impairment. She was seen on consultation by neurology who felt that she was likely post-ictal. The patient does have a history of a CVA. She was admitted to the hospitalist service. She was seen by neurology who started the patient on Keppra. The patient did gradually improve. Her hospital stay was complicated by chest pain and she was seen in the progressive care unit as she has a history of coronary artery disease and so this was taken quite seriously. Her cardiac enzymes were negative. She had frequent episodes of whole body pain associated with her significant arthritis. She was seen by pain management who did make medication adjustments and recommendations. At this time the patient is at her functional baseline. She has been cleared by physical therapy for discharge home with 13/01 care which the patient's [id number] has been able to arrange. SUBJECTIVE: This morning the patient reports that she feels the same as she has for several days, but is eager to go home. She is adamantly once again refuses any subacute rehabilitation placement or senior care home placement whatsoever. OBJECTIVE: VITAL SIGNS: Temperature 98.7, pulse 66, respiratory rate 18, blood pressure 112/65, oxygen saturation 94% on room air. GENERAL: She is a very frail elderly cachectic 71-year-old female laying flat in bed. She does not appear to be in any acute distress whatsoever. HEENT: Cranial nerves II through XII are grossly intact. She has moist mucous membranes. No elevation of central venous pressure (CVP). CARDIOVASCULAR: S1, S2, regular. RESPIRATORY: Exam is clear. ABDOMEN: Exam benign. LABORATORY STUDIES: WBC 4.9, hemoglobin 10.6, platelet count 256. Chemistry panel: Sodium 141, potassium 4.1, chloride 106, bicarbonate 28, BUN 14, creatinine 0.4. IMAGING: The patient had a CT angiography on 12/12/2016 which revealed no pulmonary embolus (PE). No acute infiltrates. Pacemaker in place. She also had a CT abdomen and pelvis on 12/14/2016 which revealed mild moderate constipation and grade 4 compression fracture of the L1 vertebral body unchanged from a year prior. No new bony findings. She did have a vascular ultrasound of her carotids in which the right carotid and right vertebral vessels could not be evaluated. Very mild plaquing on the left. No evidence of high grade stenosis on the left. She did also have an echocardiogram during her stay on 12/08/2016 which revealed a normal LV size and wall thickness antral apical marked hypokinesis in keeping with her prior known injury. ASSESSMENT/PLAN: This 71-year-old female with seizure-like activity. PROBLEMS: 1. New seizure-like activity: Neurology's help has been greatly appreciated. She is continued on Keppra. An EEG did not show any seizure activity. She was likely post-ictal and I suspect she did not have a TIA. She is to followup with neurology within 2 weeks. 2. Rheumatoid arthritis: Significant and requiring a high levels of pain medication. Pain management recommendations were appreciated and pain medications were adjusted while in the hospital. She has previously been on Humira with relief. She has an appointment to see her photoengraving proofer apprentice in [place] in the near further. I have urged her to keep that appointment as this physician is best equipped to management her long-term pain and rheumatic disease. 3. Hypertension: She is on Coreg. 4. History of a cerebrovascular accident(CVA): She is on aspirin and Plavix. She is also on Lipitor. 5. Coronary artery disease with multiple myocardial infarctions (OR). Coronary artery bypass graft (CABG) and ischemic cardiomyopathy. She was continued on her aspirin, beta cory, statin and Plavix. 6. History of traumatic brain injury (TBI): As outlined above. She is continued on aspirin, Plavix, statin. 7. History of cardiac arrhythmia: The details of which are unclear. She is status post an AICD. She is continued on her home amiodarone, digoxin and Coreg. 8. Severe protein calorie malnutrition: She is receiving meal supplementations while in the hospital. 9. Anxiety: She is continued on Zoloft and Ativan. DISPOSITION: The patient is being discharged home in the care of her family with 24-[address] Her activity is as tolerated. Her diet is as prior to admission. She is to return to the emergency room if her symptoms worsen. DISCHARGE MEDICATIONS: - gabapentin 100 mg twice a day - Keppra 500 mg twice a day - amiodarone 200 mg daily - aspirin 81 mg daily - atorvastatin 40 mg nightly - soma 350 mg twice a day - Coreg 6.25 mg twice a day - Plavix 75 mg daily - digoxin 0.125 mg daily - Colace 100 mg twice a day - Ativan 0.5 mg twice a day - nitrosate 0.4 mg sublingually every 5 minutes times three doses for chest pain as needed. - Zoloft 100 mg twice a day - sulfasalazine 1500 mg twice a day - valacyclovir 1 gram daily as needed - Ambien 5 mg nightly. - hydrocodone 10-325 one tablet every 6 hours as needed for pain. Greater than 30 minutes was spent organizing disposition. MTDD
[2016-12-20] MEDS ORDERED: levETIRAcetam 250MG TABLET (KEPPRA) PO SCH (21:00)
== END 2016-12-20 14:50 | disposition home or self-care (01) | DRG 100 ==
LOC: EDBD 12:39 → M ED 14:03 → M ED INP 15:49 → M PCU 17:50 → M MSPAV 12-10 17:46 → M PCU 12-11 13:40 → M MSPAV 12-12 18:46
PROVIDERS: ADMIT Internal Medicine; ATTEND Internal Medicine
DX: R56.9 Unspecified convulsions (principal); E43 Unspecified severe protein-calorie malnutrition; B37.0 Candidal stomatitis; Z68.1 Body mass index [BMI] 19.9 or less, adult; I25.10 Atherosclerotic heart disease of native coronary artery without angina pectoris; I25.2 Old myocardial infarction; F41.9 Anxiety disorder, unspecified; I10 Essential (primary) hypertension; B02.9 Zoster without complications; M06.80 Other specified rheumatoid arthritis, unspecified site; I25.5 Ischemic cardiomyopathy; I48.91 Unspecified atrial fibrillation; K59.00 Constipation, unspecified; G47.00 Insomnia, unspecified; I95.1 Orthostatic hypotension; Z96.652 Presence of left artificial knee joint; Z88.8 Allergy status to other drugs, medicaments and biological substances; Z95.1 Presence of aortocoronary bypass graft; Z79.82 Long term (current) use of aspirin; Z79.899 Other long term (current) drug therapy; R07.81 Pleurodynia; Z95.810 Presence of automatic (implantable) cardiac defibrillator; R10.84 Generalized abdominal pain; Z99.3 Dependence on wheelchair; Z86.73 Personal history of transient ischemic attack (TIA), and cerebral infarction without residual deficits; Z79.02 Long term (current) use of antithrombotics/antiplatelets

== ENCOUNTER → 2016-12-25 | Outpatient (REF) | payer MEDICARE, MEDICAID ==
[~2016-12-25] MED LIST changes: +CLOP75TA2 PO; +COLA100C5 PO; +GABA-279 PO; +KEPP1TAB PO; +LEVE500XR PO; +SULF50TA PO
== END ==
LOC: M LAB REF 12:22
PROVIDERS: ATTEND Nurse Practitioner Family
DX: G40.89 Other seizures (principal)

== ENCOUNTER → 2017-03-20 | Outpatient (REF) | payer MEDICARE, MEDICAID ==
[2017-03-20 13:20] LABS: BASO # 0.1 10^3/uL (0.0-0.2); BASO % 1.4 % (0.0-1.0); EOS # 0.3 10^3/uL (0.0-0.50); EOS % 5.5 % (0.0-3.0); IMMATURE GRANULOCYTE % 0.4 % (0-0); LYMPH # 1.3 10^3/uL (1.5-4.5); LYMPH % 23.5 % (24.0-44.0); MEAN CORPUSCULAR HEMOGLOBIN 28.9 pg (27.0-33.0); MEAN CORPUSCULAR VOLUME 90.4 fl (80.0-96.0); MONO # 0.8 10^3/uL (0.0-0.8); MONO % 14.3 % (0.0-5.0); NEUTROPHILS # 3.1 10^3/uL (1.8-7.7); NEUTROPHILS % 54.9 % (36.0-66.0); PLATELET COUNT, AUTOMATED 276 10^3/uL (150-450); RED CELL DISTRIBUTION WIDTH 14.3 % (11.5-14.5); WHITE BLOOD COUNT 5.6 10^3/uL (4.0-10.0)
[2017-03-21 08:53] LABS: HEPATITIS B SURFACE ANTIBODY NEGATIVE (POSITIVE)
[2017-03-24 15:09] LABS: ALT 13 IU/L (0-40); FIBROSIS STAGE F0-F1 (.); GGT 12 IU/L (0-60); HAPTOGLOBIN 190 mg/dL (34-200); HEPATITIS C QUANTITATION 54580 IU/mL (.); HEPATITIS C VIRUS GENOTYPE 3 (.); NECROINFLAM SCORE 0.04 (0.00-0.17); NECROINFLAMM GRADE A0-No activity (.); TOTAL BILIRUBIN 0.3 mg/dL (0.0-1.2)
== END ==
LOC: M SFHCPLAZ 10:29
PROVIDERS: ATTEND Internal Medicine Infectious Disease
DX: B18.2 Chronic viral hepatitis C (principal); R76.8 Other specified abnormal immunological findings in serum; M05.79 Rheumatoid arthritis with rheumatoid factor of multiple sites without organ or systems involvement; G40.909 Epilepsy, unspecified, not intractable, without status epilepticus; Z79.82 Long term (current) use of aspirin; Z79.899 Other long term (current) drug therapy
CPT/HCPCS: 82105; 82172; 82247; 82977; 83010; 83883; 84460; 85025; 86704; 86706; 86708; 87522; 87902; G0463

== ENCOUNTER 2017-05-28 20:12 | Inpatient (IN) | payer MEDICARE, MEDICAID ==
[2017-05-28] MEDS: ONDANSETRON 4MG/2ML VIAL (J2405) IV (21:00)
[2017-05-28] MEDS: MORPHINE 4 MG/ML 1ML SYRINGE IV ×2 (21:16→22:34)
[2017-05-28 21:40] LABS: BASO # 0.1 10^3/uL (0.0-0.2); BASO % 1.7 % (0.0-1.0); EOS # 0.3 10^3/uL (0.0-0.50); EOS % 8.1 % (0.0-3.0); IMMATURE GRANULOCYTE % 0.2 % (0-0); LYMPH # 1.9 10^3/uL (1.5-4.5); LYMPH % 47.8 % (24.0-44.0); MEAN CORPUSCULAR HGB CONC 33.1 g/dl (32.0-36.5); MEAN CORPUSCULAR VOLUME 93.5 fl (80.0-96.0); MONO # 0.7 10^3/uL (0.0-0.8); MONO % 16.5 % (0.0-5.0); NEUTROPHILS % 25.7 % (36.0-66.0); PLATELET COUNT, AUTOMATED 222 10^3/uL (150-450); WHITE BLOOD COUNT 4.1 10^3/uL (4.0-10.0)
[2017-05-28 21:50] LABS: INR 0.96
[2017-05-28 22:05] LABS: ANION GAP 6 MEQ/L (8-16); BLOOD UREA NITROGEN 12 MG/DL (7-18); CALCIUM LEVEL 8.6 MG/DL (8.8-10.2); CARBON DIOXIDE LEVEL 30 MEQ/L (21-32); CHLORIDE LEVEL 107 MEQ/L (98-107); CREATININE FOR GFR 0.41 MG/DL (0.55-1.02); GLOMERULAR FILTRATION RATE > 60.0 (>39); GLUCOSE, FASTING 100 MG/DL (83-110); SODIUM LEVEL 143 MEQ/L (136-145)
[2017-05-28] MEDS ORDERED: ONDANSETRON 4MG/2ML VIAL (J2405) IV (23:00)
[2017-05-28] MEDS: NS 1,000 ML IV (23:00)
[2017-05-28] MEDS: CARVedilol 6.25 MG TAB PO (23:57)
[2017-05-28] MEDS: zolPIDEM TARTRATE 5 MG TAB PO (23:57)
[2017-05-28] MEDS: SERTRALINE 100 MG TAB PO (23:57)
[2017-05-28] MEDS: CARISOPRODOL 350 MG TAB PO (23:57)
[2017-05-28] MEDS: levETIRAcetam 250MG TABLET (KEPPRA) PO (23:58)
[2017-05-28] MEDS: HEPARIN SOD (PORCINE) 5000 UNITS/ML VIAL SC (23:58)
[2017-05-28] MEDS: GABAPENTIN 300 MG CAP PO (23:59)
[2017-05-29] MEDS: MORPHINE 2 MG/ML 1ML SYRINGE IV (01:34)
[2017-05-29] MEDS: HEPARIN SOD (PORCINE) 5000 UNITS/ML VIAL SC ×3 (06:00→22:00)
[2017-05-29 07:58] LABS: MEAN CORPUSCULAR HGB CONC 32.1 g/dl (32.0-36.5); MEAN CORPUSCULAR VOLUME 96.7 fl (80.0-96.0); PLATELET COUNT, AUTOMATED 192 10^3/uL (150-450); RED CELL DISTRIBUTION WIDTH 18.2 % (11.5-14.5); WHITE BLOOD COUNT 3.5 10^3/uL (4.0-10.0)
[2017-05-29] MEDS: NORCO, ANEXSIA 5/325MG TABLET (HYDROcodone/ACETAMINOPHEN) PO ×3 (07:58→16:02)
[2017-05-29 08:29] LABS: LACTIC ACID SEPSIS PROTOCOL 1.4 MMOL/L (0.4-2.0)
[2017-05-29 08:33] LABS: ANION GAP 7 MEQ/L (8-16); BLOOD UREA NITROGEN 11 MG/DL (7-18); CALCIUM LEVEL 8.1 MG/DL (8.8-10.2); CARBON DIOXIDE LEVEL 25 MEQ/L (21-32); CHLORIDE LEVEL 110 MEQ/L (98-107); CREATININE FOR GFR 0.37 MG/DL (0.55-1.02); GLOMERULAR FILTRATION RATE > 60.0 (>39); GLUCOSE, FASTING 83 MG/DL (83-110); MAGNESIUM LEVEL 1.6 MG/DL (1.8-2.4); POTASSIUM SERUM 3.9 MEQ/L (3.5-5.1); SODIUM LEVEL 142 MEQ/L (136-145)
[2017-05-29] MEDS: CARISOPRODOL 350 MG TAB PO ×2 (09:50→20:29)
[2017-05-29] MEDS: levETIRAcetam 250MG TABLET (KEPPRA) PO ×2 (09:50→20:29)
[2017-05-29] MEDS: SERTRALINE 100 MG TAB PO ×2 (09:50→20:28)
[2017-05-29] MEDS: CLOPIDOGREL 75 MG TAB PO (09:50)
[2017-05-29] MEDS: GABAPENTIN 300 MG CAP PO ×2 (09:50→20:29)
[2017-05-29] MEDS: ASPIRIN 81 MG ENTERIC TAB PO (09:50)
[2017-05-29] MEDS: valACYclovir HCL 500 MG TAB PO (11:26)
[2017-05-29] MEDS: MAG SULF 1GM/100ML (MAG RUN) 1 GM in APPROPRIATE DILUENT 1 EA IV (14:54)
[2017-05-29] MEDS: SENOKOT S TAB PO (20:29)
[2017-05-29] MEDS: zolPIDEM TARTRATE 5 MG TAB PO (20:29)
[2017-05-29] MEDS: MAVYRET PO (20:30)
[2017-05-30] MEDS: NORCO, ANEXSIA 5/325MG TABLET (HYDROcodone/ACETAMINOPHEN) PO ×3 (05:12→15:29)
[2017-05-30] MEDS: HEPARIN SOD (PORCINE) 5000 UNITS/ML VIAL SC ×3 (05:12→22:02)
[2017-05-30 06:00] LABS: MEAN CORPUSCULAR HEMOGLOBIN 30.8 pg (27.0-33.0); MEAN CORPUSCULAR HGB CONC 31.9 g/dl (32.0-36.5); MEAN CORPUSCULAR VOLUME 96.5 fl (80.0-96.0); PLATELET COUNT, AUTOMATED 188 10^3/uL (150-450); RED CELL DISTRIBUTION WIDTH 17.9 % (11.5-14.5); WHITE BLOOD COUNT 3.2 10^3/uL (4.0-10.0)
[2017-05-30 06:21] LABS: ANION GAP 8 MEQ/L (8-16); BLOOD UREA NITROGEN 11 MG/DL (7-18); CALCIUM LEVEL 8.3 MG/DL (8.8-10.2); CARBON DIOXIDE LEVEL 26 MEQ/L (21-32); CHLORIDE LEVEL 111 MEQ/L (98-107); CREATININE FOR GFR 0.34 MG/DL (0.55-1.02); GLOMERULAR FILTRATION RATE > 60.0 (>39); GLUCOSE, FASTING 84 MG/DL (83-110); MAGNESIUM LEVEL 1.8 MG/DL (1.8-2.4); POTASSIUM SERUM 3.7 MEQ/L (3.5-5.1); SODIUM LEVEL 145 MEQ/L (136-145)
[2017-05-30] MEDS: CARISOPRODOL 350 MG TAB PO ×2 (08:19→20:19)
[2017-05-30] MEDS: SENOKOT S TAB PO ×2 (08:19→20:18)
[2017-05-30] MEDS: CLOPIDOGREL 75 MG TAB PO (08:19)
[2017-05-30] MEDS: levETIRAcetam 250MG TABLET (KEPPRA) PO ×2 (08:19→20:18)
[2017-05-30] MEDS: SERTRALINE 100 MG TAB PO ×2 (08:19→20:18)
[2017-05-30] MEDS: ASPIRIN 81 MG ENTERIC TAB PO (08:19)
[2017-05-30] MEDS: MAVYRET PO (08:19)
[2017-05-30] MEDS: valACYclovir HCL 500 MG TAB PO (08:19)
[2017-05-30] MEDS: GABAPENTIN 300 MG CAP PO ×2 (08:19→20:19)
[2017-05-30] MEDS: MORPHINE 2 MG/ML 1ML SYRINGE IV ×3 (09:42→19:56)
[2017-05-30] MEDS: zolPIDEM TARTRATE 5 MG TAB PO (20:19)
[2017-05-30] MEDS: oxyCODONE 5MG TAB PO (22:02)
[2017-05-31] MEDS: MORPHINE 2 MG/ML 1ML SYRINGE IV ×6 (02:42→20:51)
[2017-05-31] MEDS: HEPARIN SOD (PORCINE) 5000 UNITS/ML VIAL SC ×3 (06:04→21:53)
[2017-05-31] MEDS: oxyCODONE 5MG TAB PO ×3 (06:05→21:53)
[2017-05-31 06:27] LABS: MEAN CORPUSCULAR HEMOGLOBIN 30.8 pg (27.0-33.0); MEAN CORPUSCULAR HGB CONC 31.9 g/dl (32.0-36.5); MEAN CORPUSCULAR VOLUME 96.5 fl (80.0-96.0); PLATELET COUNT, AUTOMATED 182 10^3/uL (150-450); RED CELL DISTRIBUTION WIDTH 18.2 % (11.5-14.5); WHITE BLOOD COUNT 3.7 10^3/uL (4.0-10.0)
[2017-05-31 06:43] LABS: ANION GAP 7 MEQ/L (8-16); BLOOD UREA NITROGEN 12 MG/DL (7-18); CALCIUM LEVEL 7.9 MG/DL (8.8-10.2); CARBON DIOXIDE LEVEL 25 MEQ/L (21-32); CHLORIDE LEVEL 113 MEQ/L (98-107); CREATININE FOR GFR 0.35 MG/DL (0.55-1.02); GLOMERULAR FILTRATION RATE > 60.0 (>39); GLUCOSE, FASTING 79 MG/DL (83-110); MAGNESIUM LEVEL 1.7 MG/DL (1.8-2.4); POTASSIUM SERUM 3.5 MEQ/L (3.5-5.1); SODIUM LEVEL 145 MEQ/L (136-145)
[2017-05-31] MEDS: GABAPENTIN 300 MG CAP PO ×2 (09:15→20:30)
[2017-05-31] MEDS: CLOPIDOGREL 75 MG TAB PO (09:15)
[2017-05-31] MEDS: ASPIRIN 81 MG ENTERIC TAB PO (09:15)
[2017-05-31] MEDS: levETIRAcetam 250MG TABLET (KEPPRA) PO ×2 (09:15→20:31)
[2017-05-31] MEDS: valACYclovir HCL 500 MG TAB PO (09:15)
[2017-05-31] MEDS: SERTRALINE 100 MG TAB PO ×2 (09:15→20:31)
[2017-05-31] MEDS: MAVYRET PO (09:15)
[2017-05-31] MEDS: CARISOPRODOL 350 MG TAB PO ×2 (09:16→20:31)
[2017-05-31] MEDS: SENOKOT S TAB PO ×2 (09:16→20:31)
[2017-05-31] MEDS: MAG SULF 1GM/100ML (MAG RUN) 1 GM in APPROPRIATE DILUENT 1 EA IV (10:27)
[2017-05-31] MEDS: POTASSIUM CHLORIDE 10 MEQ SR TABLET PO (10:27)
[2017-05-31] MEDS: zolPIDEM TARTRATE 5 MG TAB PO (20:31)
[2017-06-01] MEDS: MORPHINE 2 MG/ML 1ML SYRINGE IV ×6 (00:25→22:49)
[2017-06-01] MEDS: oxyCODONE 5MG TAB PO ×3 (05:25→17:45)
[2017-06-01] MEDS: HEPARIN SOD (PORCINE) 5000 UNITS/ML VIAL SC ×3 (05:26→21:39)
[2017-06-01 06:20] LABS: MEAN CORPUSCULAR HEMOGLOBIN 31.3 pg (27.0-33.0); MEAN CORPUSCULAR HGB CONC 32.4 g/dl (32.0-36.5); MEAN CORPUSCULAR VOLUME 96.5 fl (80.0-96.0); PLATELET COUNT, AUTOMATED 181 10^3/uL (150-450); RED CELL DISTRIBUTION WIDTH 18.8 % (11.5-14.5); WHITE BLOOD COUNT 3.4 10^3/uL (4.0-10.0)
[2017-06-01 06:40] LABS: ANION GAP 7 MEQ/L (8-16); BLOOD UREA NITROGEN 10 MG/DL (7-18); CALCIUM LEVEL 8.2 MG/DL (8.8-10.2); CARBON DIOXIDE LEVEL 26 MEQ/L (21-32); CHLORIDE LEVEL 111 MEQ/L (98-107); CREATININE FOR GFR 0.33 MG/DL (0.55-1.02); GLOMERULAR FILTRATION RATE > 60.0 (>39); GLUCOSE, FASTING 87 MG/DL (83-110); MAGNESIUM LEVEL 1.9 MG/DL (1.8-2.4); POTASSIUM SERUM 3.9 MEQ/L (3.5-5.1); SODIUM LEVEL 144 MEQ/L (136-145)
[2017-06-01] MEDS: MAVYRET PO (08:03)
[2017-06-01] MEDS: CARISOPRODOL 350 MG TAB PO ×2 (08:04→21:38)
[2017-06-01] MEDS: SERTRALINE 100 MG TAB PO ×2 (08:04→21:39)
[2017-06-01] MEDS: ASPIRIN 81 MG ENTERIC TAB PO (08:04)
[2017-06-01] MEDS: CLOPIDOGREL 75 MG TAB PO (08:04)
[2017-06-01] MEDS: valACYclovir HCL 500 MG TAB PO (08:04)
[2017-06-01] MEDS: GABAPENTIN 300 MG CAP PO ×2 (08:04→21:39)
[2017-06-01] MEDS: levETIRAcetam 250MG TABLET (KEPPRA) PO ×2 (08:04→21:38)
[2017-06-01] MEDS: SENOKOT S TAB PO ×2 (08:04→21:38)
[2017-06-01] MEDS: zolPIDEM TARTRATE 5 MG TAB PO (21:39)
[2017-06-02] MEDS: oxyCODONE 5MG TAB PO ×5 (00:01→23:55)
[2017-06-02] MEDS: MORPHINE 2 MG/ML 1ML SYRINGE IV ×6 (01:27→21:28)
[2017-06-02] MEDS: HEPARIN SOD (PORCINE) 5000 UNITS/ML VIAL SC ×3 (05:57→21:09)
[2017-06-02 06:21] LABS: MEAN CORPUSCULAR HEMOGLOBIN 30.8 pg (27.0-33.0); MEAN CORPUSCULAR HGB CONC 32.4 g/dl (32.0-36.5); MEAN CORPUSCULAR VOLUME 95.1 fl (80.0-96.0); PLATELET COUNT, AUTOMATED 188 10^3/uL (150-450); RED CELL DISTRIBUTION WIDTH 18.7 % (11.5-14.5); WHITE BLOOD COUNT 3.6 10^3/uL (4.0-10.0)
[2017-06-02 06:35] LABS: ANION GAP 7 MEQ/L (8-16); BLOOD UREA NITROGEN 11 MG/DL (7-18); CALCIUM LEVEL 8.3 MG/DL (8.8-10.2); CARBON DIOXIDE LEVEL 27 MEQ/L (21-32); CHLORIDE LEVEL 110 MEQ/L (98-107); CREATININE FOR GFR 0.34 MG/DL (0.55-1.02); GLOMERULAR FILTRATION RATE > 60.0 (>39); GLUCOSE, FASTING 86 MG/DL (83-110); MAGNESIUM LEVEL 1.6 MG/DL (1.8-2.4); POTASSIUM SERUM 3.8 MEQ/L (3.5-5.1); SODIUM LEVEL 144 MEQ/L (136-145)
[2017-06-02] MEDS: MAG SULF 1GM/100ML (MAG RUN) 1 GM in APPROPRIATE DILUENT 1 EA IV (08:56)
[2017-06-02] MEDS: MAVYRET PO (09:00)
[2017-06-02] MEDS: levETIRAcetam 250MG TABLET (KEPPRA) PO ×2 (09:05→21:09)
[2017-06-02] MEDS: valACYclovir HCL 500 MG TAB PO (09:06)
[2017-06-02] MEDS: SENOKOT S TAB PO ×2 (09:06→21:10)
[2017-06-02] MEDS: CLOPIDOGREL 75 MG TAB PO (09:07)
[2017-06-02] MEDS: SERTRALINE 100 MG TAB PO ×2 (09:07→21:09)
[2017-06-02] MEDS: ASPIRIN 81 MG ENTERIC TAB PO (09:07)
[2017-06-02] MEDS: GABAPENTIN 300 MG CAP PO ×2 (09:07→21:09)
[2017-06-02] MEDS: CARISOPRODOL 350 MG TAB PO ×2 (09:07→21:10)
[2017-06-02] MEDS: zolPIDEM TARTRATE 5 MG TAB PO (21:10)
[2017-06-03] MEDS: MORPHINE 2 MG/ML 1ML SYRINGE IV ×5 (02:36→22:43)
[2017-06-03 05:38] LABS: MEAN CORPUSCULAR HGB CONC 32.3 g/dl (32.0-36.5); MEAN CORPUSCULAR VOLUME 95.9 fl (80.0-96.0); PLATELET COUNT, AUTOMATED 190 10^3/uL (150-450); RED CELL DISTRIBUTION WIDTH 18.6 % (11.5-14.5); WHITE BLOOD COUNT 3.4 10^3/uL (4.0-10.0)
[2017-06-03 06:00] LABS: ANION GAP 5 MEQ/L (8-16); BLOOD UREA NITROGEN 11 MG/DL (7-18); CALCIUM LEVEL 8.3 MG/DL (8.8-10.2); CARBON DIOXIDE LEVEL 30 MEQ/L (21-32); CHLORIDE LEVEL 108 MEQ/L (98-107); CREATININE FOR GFR 0.31 MG/DL (0.55-1.02); GLOMERULAR FILTRATION RATE > 60.0 (>39); GLUCOSE, FASTING 84 MG/DL (83-110); MAGNESIUM LEVEL 1.7 MG/DL (1.8-2.4); POTASSIUM SERUM 3.9 MEQ/L (3.5-5.1); SODIUM LEVEL 143 MEQ/L (136-145)
[2017-06-03] MEDS: HEPARIN SOD (PORCINE) 5000 UNITS/ML VIAL SC (06:02)
[2017-06-03] MEDS: oxyCODONE 5MG TAB PO ×4 (06:03→21:05)
[2017-06-03] MEDS: MAG SULF 1GM/100ML (MAG RUN) 1 GM in APPROPRIATE DILUENT 1 EA IV (09:13)
[2017-06-03] MEDS: GABAPENTIN 300 MG CAP PO ×2 (09:22→21:04)
[2017-06-03] MEDS: SERTRALINE 100 MG TAB PO ×2 (09:22→21:02)
[2017-06-03] MEDS: levETIRAcetam 250MG TABLET (KEPPRA) PO ×2 (09:23→21:05)
[2017-06-03] MEDS: SENOKOT S TAB PO ×2 (09:23→21:03)
[2017-06-03] MEDS: valACYclovir HCL 500 MG TAB PO (09:24)
[2017-06-03] MEDS: CARISOPRODOL 350 MG TAB PO ×2 (09:24→21:05)
[2017-06-03] MEDS: CLOPIDOGREL 75 MG TAB PO (09:24)
[2017-06-03] MEDS: MAVYRET PO (09:25)
[2017-06-03] MEDS: ASPIRIN 81 MG ENTERIC TAB PO (09:25)
[2017-06-03] MEDS: zolPIDEM TARTRATE 5 MG TAB PO (21:04)
[2017-06-04] MEDS: oxyCODONE 5MG TAB PO ×4 (00:30→13:00)
[2017-06-04] MEDS: SENOKOT S TAB PO ×2 (07:50→21:42)
[2017-06-04] MEDS: GABAPENTIN 300 MG CAP PO ×2 (07:50→21:43)
[2017-06-04] MEDS: levETIRAcetam 250MG TABLET (KEPPRA) PO ×2 (07:50→21:43)
[2017-06-04] MEDS: CARISOPRODOL 350 MG TAB PO ×2 (07:50→21:43)
[2017-06-04] MEDS: SERTRALINE 100 MG TAB PO ×2 (07:50→21:43)
[2017-06-04] MEDS: valACYclovir HCL 500 MG TAB PO (07:50)
[2017-06-04] MEDS: MORPHINE 2 MG/ML 1ML SYRINGE IV ×4 (09:56→22:46)
[2017-06-04] MEDS ORDERED: MORPHINE 10MG/0.5ML ORAL CONCENTRATE SOLUTION U/D SL (13:30)
[2017-06-04] MEDS ORDERED: BISACODYL 10 MG SUPP PR (13:30)
[2017-06-04] MEDS ORDERED: ACETAMINOPHEN TAB 650MG DOSE (2X325MG) PO (13:30)
[2017-06-04] MEDS ORDERED: FLEET ENEMA PR (13:30)
[2017-06-04] MEDS ORDERED: SCOPOLAMINE 1.5 MG TRANSDERMAL TD (13:30)
[2017-06-04] MEDS ORDERED: ACETAMINOPHEN 650 MG SUPP PR (13:30)
[2017-06-04] MEDS ORDERED: ATROPINE SULFATE 1% OP SOLN 2 ML BTL SL (13:30)
[2017-06-04] MEDS ORDERED: ONDANSETRON 4 MG ORAL DISINTEGRATING TAB (S0181) PO (13:30)
[2017-06-04] MEDS: MORPHINE 15 MG SA TAB PO ×2 (14:36→21:43)
[2017-06-04] MEDS: MORPHINE 10MG/0.5ML ORAL CONCENTRATE SOLUTION U/D SL (19:37)
[2017-06-04] MEDS: zolPIDEM TARTRATE 5 MG TAB PO (21:43)
[2017-06-05] MEDS: MORPHINE 15 MG SA TAB PO ×3 (05:32→21:57)
[2017-06-05] MEDS: MORPHINE 2 MG/ML 1ML SYRINGE IV ×5 (06:23→18:26)
[2017-06-05] MEDS: levETIRAcetam 250MG TABLET (KEPPRA) PO ×2 (10:19→20:31)
[2017-06-05] MEDS: SERTRALINE 100 MG TAB PO ×2 (10:20→20:31)
[2017-06-05] MEDS: valACYclovir HCL 500 MG TAB PO (10:20)
[2017-06-05] MEDS: CARISOPRODOL 350 MG TAB PO ×2 (10:20→20:31)
[2017-06-05] MEDS: GABAPENTIN 300 MG CAP PO ×2 (10:20→20:31)
[2017-06-05] MEDS: SENOKOT S TAB PO ×2 (10:21→20:31)
[2017-06-05] MEDS: MORPHINE 10MG/0.5ML ORAL CONCENTRATE SOLUTION U/D SL (15:48)
[2017-06-05] MEDS: zolPIDEM TARTRATE 5 MG TAB PO (20:31)
[2017-06-06] MEDS: MORPHINE 10MG/0.5ML ORAL CONCENTRATE SOLUTION U/D SL ×5 (04:24→20:04)
[2017-06-06] MEDS: MORPHINE 15 MG SA TAB PO ×3 (06:25→21:52)
[2017-06-06] MEDS: levETIRAcetam 250MG TABLET (KEPPRA) PO ×2 (09:15→20:03)
[2017-06-06] MEDS: SERTRALINE 100 MG TAB PO ×2 (09:15→20:03)
[2017-06-06] MEDS: SENOKOT S TAB PO ×2 (09:16→20:03)
[2017-06-06] MEDS: valACYclovir HCL 500 MG TAB PO (09:16)
[2017-06-06] MEDS: GABAPENTIN 300 MG CAP PO ×2 (09:16→20:03)
[2017-06-06] MEDS: CARISOPRODOL 350 MG TAB PO ×2 (09:16→20:03)
[2017-06-06] MEDS: LORazepam 0.5 MG TAB PO ×2 (10:08→21:55)
[2017-06-06] MEDS: zolPIDEM TARTRATE 5 MG TAB PO (20:03)
[2017-06-07] MEDS: MORPHINE 10MG/0.5ML ORAL CONCENTRATE SOLUTION U/D SL ×5 (00:03→21:30)
[2017-06-07] MEDS: MORPHINE 15 MG SA TAB PO ×3 (06:41→20:24)
[2017-06-07] MEDS: SENOKOT S TAB PO ×2 (08:46→20:23)
[2017-06-07] MEDS: SERTRALINE 100 MG TAB PO ×2 (08:47→20:23)
[2017-06-07] MEDS: GABAPENTIN 300 MG CAP PO ×2 (08:47→20:22)
[2017-06-07] MEDS: levETIRAcetam 250MG TABLET (KEPPRA) PO ×2 (08:47→20:23)
[2017-06-07] MEDS: valACYclovir HCL 500 MG TAB PO (08:47)
[2017-06-07] MEDS: CARISOPRODOL 350 MG TAB PO ×2 (08:47→20:23)
[2017-06-07] MEDS: zolPIDEM TARTRATE 5 MG TAB PO (20:22)
[2017-06-07] MEDS: LORazepam 0.5 MG TAB PO (20:23)
[2017-06-08] MEDS: MORPHINE 15 MG SA TAB PO ×3 (05:58→21:03)
[2017-06-08] MEDS: valACYclovir HCL 500 MG TAB PO (09:33)
[2017-06-08] MEDS: GABAPENTIN 300 MG CAP PO ×2 (09:33→21:03)
[2017-06-08] MEDS: SERTRALINE 100 MG TAB PO ×2 (09:33→21:02)
[2017-06-08] MEDS: CARISOPRODOL 350 MG TAB PO ×2 (09:33→21:02)
[2017-06-08] MEDS: levETIRAcetam 250MG TABLET (KEPPRA) PO ×2 (09:33→21:02)
[2017-06-08] MEDS: SENOKOT S TAB PO ×2 (09:33→21:02)
[2017-06-08] MEDS: MORPHINE 10MG/0.5ML ORAL CONCENTRATE SOLUTION U/D SL ×6 (10:25→23:02)
[2017-06-08] MEDS: zolPIDEM TARTRATE 5 MG TAB PO (21:03)
[2017-06-08] MEDS: LORazepam 0.5 MG TAB PO (21:10)
[2017-06-09] MEDS: MORPHINE 10MG/0.5ML ORAL CONCENTRATE SOLUTION U/D SL ×9 (00:58→20:04)
[2017-06-09] MEDS: MORPHINE 15 MG SA TAB PO ×3 (06:03→21:20)
[2017-06-09] MEDS: CARISOPRODOL 350 MG TAB PO ×2 (09:09→20:04)
[2017-06-09] MEDS: GABAPENTIN 300 MG CAP PO ×2 (09:09→20:04)
[2017-06-09] MEDS: SENOKOT S TAB PO ×2 (09:09→20:04)
[2017-06-09] MEDS: valACYclovir HCL 500 MG TAB PO (09:09)
[2017-06-09] MEDS: SERTRALINE 100 MG TAB PO ×2 (09:09→20:04)
[2017-06-09] MEDS: levETIRAcetam 250MG TABLET (KEPPRA) PO ×2 (09:09→20:04)
[2017-06-09] MEDS: LORazepam 0.5 MG TAB PO ×2 (09:20→21:21)
[2017-06-09] MEDS: zolPIDEM TARTRATE 5 MG TAB PO (20:04)
[2017-06-10] MEDS: MORPHINE 15 MG SA TAB PO ×3 (06:13→21:23)
[2017-06-10] MEDS: SERTRALINE 100 MG TAB PO ×2 (10:33→21:24)
[2017-06-10] MEDS: levETIRAcetam 250MG TABLET (KEPPRA) PO ×2 (10:33→21:24)
[2017-06-10] MEDS: SENOKOT S TAB PO ×2 (10:33→21:23)
[2017-06-10] MEDS: LORazepam 0.5 MG TAB PO ×2 (10:33→21:23)
[2017-06-10] MEDS: CARISOPRODOL 350 MG TAB PO ×2 (10:33→21:23)
[2017-06-10] MEDS: valACYclovir HCL 500 MG TAB PO (10:33)
[2017-06-10] MEDS: GABAPENTIN 300 MG CAP PO ×2 (10:33→21:23)
[2017-06-10] MEDS: MORPHINE 10MG/0.5ML ORAL CONCENTRATE SOLUTION U/D SL ×5 (10:34→22:09)
[2017-06-10] MEDS: zolPIDEM TARTRATE 5 MG TAB PO (21:24)
[2017-06-11] MEDS: MORPHINE 15 MG SA TAB PO ×3 (06:21→21:13)
[2017-06-11] MEDS: SENOKOT S TAB PO ×2 (09:37→21:14)
[2017-06-11] MEDS: GABAPENTIN 300 MG CAP PO ×2 (09:37→21:13)
[2017-06-11] MEDS: MORPHINE 10MG/0.5ML ORAL CONCENTRATE SOLUTION U/D SL ×7 (09:37→23:30)
[2017-06-11] MEDS: LORazepam 0.5 MG TAB PO ×2 (09:37→21:14)
[2017-06-11] MEDS: SERTRALINE 100 MG TAB PO ×2 (09:37→21:14)
[2017-06-11] MEDS: levETIRAcetam 250MG TABLET (KEPPRA) PO ×2 (09:37→21:14)
[2017-06-11] MEDS: CARISOPRODOL 350 MG TAB PO ×2 (09:37→21:14)
[2017-06-11] MEDS: valACYclovir HCL 500 MG TAB PO (09:37)
[2017-06-11] MEDS: zolPIDEM TARTRATE 5 MG TAB PO (21:14)
[2017-06-12] MEDS: MORPHINE 15 MG SA TAB PO ×3 (06:17→21:47)
[2017-06-12] MEDS: levETIRAcetam 250MG TABLET (KEPPRA) PO ×2 (09:53→21:46)
[2017-06-12] MEDS: MORPHINE 10MG/0.5ML ORAL CONCENTRATE SOLUTION U/D SL ×5 (09:53→21:47)
[2017-06-12] MEDS: valACYclovir HCL 500 MG TAB PO (09:53)
[2017-06-12] MEDS: CARISOPRODOL 350 MG TAB PO ×2 (09:54→21:47)
[2017-06-12] MEDS: SERTRALINE 100 MG TAB PO ×2 (09:54→21:47)
[2017-06-12] MEDS: GABAPENTIN 300 MG CAP PO ×3 (09:54→21:46)
[2017-06-12] MEDS: SENOKOT S TAB PO ×2 (09:54→21:46)
[2017-06-12] MEDS: LORazepam 0.5 MG TAB PO (16:15)
[2017-06-12] MEDS: SCOPOLAMINE 1MG TRANSDERMAL PATCH TOP (16:15)
[2017-06-12] MEDS: zolPIDEM TARTRATE 5 MG TAB PO (21:47)
[2017-06-13] MEDS: MORPHINE 10MG/0.5ML ORAL CONCENTRATE SOLUTION U/D SL ×7 (00:01→21:44)
[2017-06-13] MEDS: MORPHINE 15 MG SA TAB PO ×2 (06:16→15:12)
[2017-06-13] MEDS: GABAPENTIN 300 MG CAP PO ×3 (09:00→21:48)
[2017-06-13] MEDS: SERTRALINE 100 MG TAB PO ×2 (09:00→21:50)
[2017-06-13] MEDS: CARISOPRODOL 350 MG TAB PO ×2 (09:00→21:48)
[2017-06-13] MEDS: valACYclovir HCL 500 MG TAB PO (09:00)
[2017-06-13] MEDS: SENOKOT S TAB PO ×2 (09:00→21:00)
[2017-06-13] MEDS: levETIRAcetam 250MG TABLET (KEPPRA) PO ×2 (09:00→21:00)
[2017-06-13] MEDS: LORazepam 0.5 MG TAB PO (17:44)
[2017-06-13] MEDS: zolPIDEM TARTRATE 5 MG TAB PO (21:49)
[2017-06-14] MEDS: MORPHINE 15 MG SA TAB PO ×4 (01:40→21:13)
[2017-06-14] MEDS: SERTRALINE 100 MG TAB PO ×2 (11:09→21:00)
[2017-06-14] MEDS: GABAPENTIN 300 MG CAP PO ×3 (11:09→21:18)
[2017-06-14] MEDS: levETIRAcetam 250MG TABLET (KEPPRA) PO ×2 (11:09→21:00)
[2017-06-14] MEDS: CARISOPRODOL 350 MG TAB PO ×2 (11:09→21:15)
[2017-06-14] MEDS: SENOKOT S TAB PO ×2 (11:09→21:00)
[2017-06-14] MEDS: valACYclovir HCL 500 MG TAB PO (11:09)
[2017-06-14] MEDS: MORPHINE 10MG/0.5ML ORAL CONCENTRATE SOLUTION U/D SL ×3 (11:10→22:06)
[2017-06-14] MEDS: LORazepam 0.5 MG TAB PO (14:10)
[2017-06-14] MEDS: zolPIDEM TARTRATE 5 MG TAB PO (21:00)
[2017-06-15] MEDS: MORPHINE 10MG/0.5ML ORAL CONCENTRATE SOLUTION U/D SL ×6 (00:32→21:03)
[2017-06-15] MEDS: MORPHINE 15 MG SA TAB PO ×3 (06:00→21:05)
[2017-06-15] MEDS: CARISOPRODOL 350 MG TAB PO ×2 (09:55→21:09)
[2017-06-15] MEDS: levETIRAcetam 250MG TABLET (KEPPRA) PO ×2 (09:55→21:00)
[2017-06-15] MEDS: SERTRALINE 100 MG TAB PO ×2 (10:02→21:11)
[2017-06-15] MEDS: SENOKOT S TAB PO ×2 (10:02→21:00)
[2017-06-15] MEDS: valACYclovir HCL 500 MG TAB PO (10:03)
[2017-06-15] MEDS: GABAPENTIN 300 MG CAP PO ×3 (10:03→21:08)
[2017-06-15] MEDS: zolPIDEM TARTRATE 5 MG TAB PO (21:09)
[2017-06-15] MEDS: LORazepam 0.5 MG TAB PO (21:09)
[2017-06-16] MEDS: MORPHINE 15 MG SA TAB PO ×3 (06:59→22:00)
[2017-06-16] MEDS: levETIRAcetam 250MG TABLET (KEPPRA) PO ×2 (09:00→20:46)
[2017-06-16] MEDS: valACYclovir HCL 500 MG TAB PO (09:00)
[2017-06-16] MEDS: SENOKOT S TAB PO ×2 (09:00→20:46)
[2017-06-16] MEDS: SERTRALINE 100 MG TAB PO ×2 (09:00→20:46)
[2017-06-16] MEDS: CARISOPRODOL 350 MG TAB PO ×2 (09:26→20:46)
[2017-06-16] MEDS: MORPHINE 10MG/0.5ML ORAL CONCENTRATE SOLUTION U/D SL ×4 (09:26→20:48)
[2017-06-16] MEDS: GABAPENTIN 300 MG CAP PO ×3 (09:27→20:46)
[2017-06-16] MEDS: zolPIDEM TARTRATE 5 MG TAB PO (20:46)
[2017-06-17] MEDS: MORPHINE 10MG/0.5ML ORAL CONCENTRATE SOLUTION U/D SL ×7 (00:44→20:17)
[2017-06-17] MEDS: MORPHINE 15 MG SA TAB PO ×3 (06:00→23:04)
[2017-06-17] MEDS: SENOKOT S TAB PO ×2 (09:00→20:18)
[2017-06-17] MEDS: SERTRALINE 100 MG TAB PO ×2 (09:52→20:18)
[2017-06-17] MEDS: GABAPENTIN 300 MG CAP PO ×3 (09:52→20:18)
[2017-06-17] MEDS: LORazepam 0.5 MG TAB PO ×2 (09:52→20:18)
[2017-06-17] MEDS: levETIRAcetam 250MG TABLET (KEPPRA) PO ×2 (09:52→20:18)
[2017-06-17] MEDS: CARISOPRODOL 350 MG TAB PO ×2 (09:53→20:18)
[2017-06-17] MEDS: valACYclovir HCL 500 MG TAB PO (09:53)
[2017-06-17] MEDS: zolPIDEM TARTRATE 5 MG TAB PO (20:18)
[2017-06-18] MEDS: MORPHINE 15 MG SA TAB PO ×2 (06:29→13:08)
[2017-06-18] MEDS: SENOKOT S TAB PO (09:00)
[2017-06-18] MEDS: levETIRAcetam 250MG TABLET (KEPPRA) PO (09:04)
[2017-06-18] MEDS: valACYclovir HCL 500 MG TAB PO (09:04)
[2017-06-18] MEDS: CARISOPRODOL 350 MG TAB PO (09:04)
[2017-06-18] MEDS: GABAPENTIN 300 MG CAP PO (09:04)
[2017-06-18] MEDS: SERTRALINE 100 MG TAB PO (09:04)
[2017-06-18] MEDS: MORPHINE 10MG/0.5ML ORAL CONCENTRATE SOLUTION U/D SL ×2 (09:04→13:08)
== END 2017-06-18 14:13 | disposition hospice, inpatient (51) | DRG 534 ==
LOC: M MSPAV 06-07 15:13 → M ED 20:12 → M ED INP 23:00
DX: S72.351A Displaced comminuted fracture of shaft of right femur, initial encounter for closed fracture (principal); E46 Unspecified protein-calorie malnutrition; M06.9 Rheumatoid arthritis, unspecified; I10 Essential (primary) hypertension; E78.5 Hyperlipidemia, unspecified; I25.10 Atherosclerotic heart disease of native coronary artery without angina pectoris; F41.9 Anxiety disorder, unspecified; F32.9 Major depressive disorder, single episode, unspecified; G47.00 Insomnia, unspecified; Z51.5 Encounter for palliative care; Z66 Do not resuscitate; M24.561 Contracture, right knee; I69.328 Other speech and language deficits following cerebral infarction; I95.9 Hypotension, unspecified; B00.9 Herpesviral infection, unspecified; W06.XXXA Fall from bed, initial encounter; Z96.653 Presence of artificial knee joint, bilateral; Z95.5 Presence of coronary angioplasty implant and graft; Z95.810 Presence of automatic (implantable) cardiac defibrillator; Z87.891 Personal history of nicotine dependence; Z79.891 Long term (current) use of opiate analgesic; Z79.899 Other long term (current) drug therapy; Y92.009 Unspecified place in unspecified non-institutional (private) residence as the place of occurrence of the external cause; Y99.8 Other external cause status; Z74.01 Bed confinement status